=== PATIENT | female | born 1935 | race Caucasian/White ===

== ENCOUNTER 2020-10-02 10:37 | Outpatient (CLI) | payer MEDICARE, SELFPAY ==
--- NOTE | ~2020-10-02 | US_ITS ---
EXAMINATION: US carotid duplex BI DATE: 10/02/2020 11:18 INDICATION: Vertigo TECHNIQUE: Grayscale, color Doppler, and pulsed Doppler images of the cervical carotid arteries were obtained. The degree of vessel stenosis is placed in one of the following categories: normal, <50%, 5 0-69%, >=70% but less than near-occlusion, near-occlusion, or total occlusion. Note that percent sten osis relative to normal distal artery lumen diameter is indirectly measured from velocity measurement s as described by Bret, et al. Radiology 2003; 229:340-346. COMPARISON: None. FINDINGS: RIGHT: The right common carotid artery (CCA) peak systolic velocity (PSV) is 81 cm/s. The right internal car otid artery (ICA) PSV is 75 cm/s. The right ICA end-diastolic velocity (EDV) is 14 cm/s. The right IC A/CCA PSV ratio is 0.9. Grayscale and color Doppler images yield an estimate of <50% diameter reducti on from plaque in the ICA. The external carotid artery (ECA) PSV is 75 cm/s. There is antegrade flow in the right vertebral artery. LEFT: The left CCA PSV is 91 cm/s. The left ICA PSV is 78 cm/s. The left ICA EDV is 14 cm/s. The left ICA/C CA PSV ratio is 0.9. Grayscale and color Doppler images yield an estimate of <50% diameter reduction from plaque in the ICA. The ECA PSV is 68 cm/s. There is antegrade flow in the left vertebral artery. IMPRESSION: 1. <50% stenosis in the right internal carotid artery. 2. <50% stenosis in the left internal carotid artery. Reviewed, dictated and finalized at location B. OSIVES TRUCK DRIVER
== END 2020-10-02 10:38 | disposition home or self-care (01) ==
PROVIDERS: PCP Family Medicine Adolescent Medicine; Visit Provider Nurse Practitioner Adult Health
DX: R42 Dizziness and giddiness (principal); I65.23 Occlusion and stenosis of bilateral carotid arteries
CPT/HCPCS: 93880

== ENCOUNTER 2020-12-18 16:57 | Outpatient (CLI) | payer MEDICARE, SELFPAY | END 2020-12-18 16:58 | disposition home or self-care (01) | LOC: ANHCOVIDVC 16:57 | PROVIDERS: PCP Family Medicine Adolescent Medicine; Visit Provider Family Medicine Adolescent Medicine | DX: Z23 Encounter for immunization (principal) | CPT/HCPCS: 0001A; 91300 ==

== ENCOUNTER 2021-01-08 16:45 | Outpatient (CLI) | payer MEDICARE, SELFPAY | END 2021-01-08 16:46 | disposition home or self-care (01) | LOC: ANHCOVIDVC 16:45 | PROVIDERS: PCP Family Medicine Adolescent Medicine | DX: Z23 Encounter for immunization (principal) | CPT/HCPCS: 0002A; 91300 ==

== ENCOUNTER → 2021-03-22 06:37 | Outpatient (CLI) | payer MEDICARE, SELFPAY ==
[2021-03-22 18:15] LABS: SARS-CoV-2 RNA PCR Negative
== END ==
PROVIDERS: PCP Family Medicine Adolescent Medicine; Visit Provider Family Medicine Adolescent Medicine
DX: R05 Cough (principal); M79.10 Myalgia, unspecified site; Z20.822 Contact with and (suspected) exposure to COVID-19
CPT/HCPCS: C9803; U0003; U0005

== ENCOUNTER 2021-09-12 11:18 | Emergency (ER) | payer MEDICARE, SELFPAY ==
--- NOTE | ~2021-09-12 | XR_ITS ---
EXAMINATION: XR chest 2V DATE: 09/12/2021 12:14 INDICATION: Shortness of breath, history of cardiac arrest TECHNIQUE: AP and lateral views of the chest are obtained. COMPARISON: 06/01/2008 FINDINGS: The lungs are free of acute opacities. There is no pleural effusion or pneumothorax. The ca rdiomediastinal silhouette is normal. There is moderate thoracic spondylosis. IMPRESSION: 1. No acute cardiopulmonary abnormality. Reviewed, dictated and finalized at location A. ICAL ASSOC
--- NOTE | ~2021-09-12 | CT_ITS ---
EXAMINATION: CT cervical spine wo con DATE: 09/12/2021 12:23 INDICATION: Head injury TECHNIQUE: Computed tomography (CT) of the cervical spine was performed without intravenous contrast. The dose-length product (DLP) was 298.15 mGy-cm. Automated exposure control and iterative reconstruc tion technique were employed. COMPARISON: None FINDINGS: There is no fracture, dislocation, or subluxation. The vertebral body heights are maintaine d. There is severe loss of intervertebral disc space height from C3-4 through C6-7. Small degenerativ e osteophytes project from the anterior endplates of multiple vertebral bodies. There is moderate mul tilevel facet osteoarthritis and severe multilevel uncovertebral joint osteoarthritis. The odontoid i s intact. The prevertebral soft tissues are normal. IMPRESSION: 1. Severe cervical spondylosis without acute findings. Reviewed, dictated and finalized at location A. ER CRAB
--- NOTE | ~2021-09-12 | CT_ITS ---
EXAMINATION: CT brain wo con INDICATION: Head injury COMPARISON: None TECHNIQUE: Standard unenhanced head CT. The dose-length product (DLP) was 605.33 mGy-cm. The mA was a djusted according to patient size. Iterative reconstruction technique was employed. FINDINGS: There is no acute intraparenchymal hemorrhage. No evidence of mass lesion. No evidence of a cute infarction. There is mild periventricular and subcortical hypodensity probably related to small vessel ischemic disease. There is mild prominence of the sulci and ventricles related to cerebral atr ophy. Intracranial calcified cerebral atherosclerosis is noted. There are no extra-axial collections. There is no mass effect or midline shift. Changes in the globes are likely from ocular lens surgery. There is mild mucosal thickening of the paranasal sinuses. IMPRESSION: 1. No acute intracranial abnormality. 2. Age related findings. Reviewed, dictated and finalized at location A. FYING SPECIALIST
[2021-09-12 11:22] VITALS: BP 169/99; PULSE 85; RESP 18; TEMP 36.6; O2SAT 99
[2021-09-12 12:54] VITALS: BP 144/70; PULSE 79; RESP 17; O2SAT 96
--- NOTE | 2021-09-12 13:07 | ED.FALL ---
HPI - Fall General Chief Complaint: Fall Stated Complaint: fall Time Seen by Provider: 09/12/21 11:44 History of Present Illness HPI Narrative: Patient presents after a fall. Reports she was walking at home stepped on a trip on a cat and fell striking her back on a recliner and guiding herself to the ground. Reports initially she was having some back pain and felt unwell however on arrival to the ER she reports feeling much improved. She denies hitting her head she denies any loss of conscious denies any focal numbness or weakness. Reports chronic dizziness but denies any acute change prior to her event. She denies chest pain or shortness of breath prior to event denies any recent fevers chills cough or congestion. Related Data Allergies Allergy/AdvReac Type Severity Reaction Status Date / Time No Known Allergies Allergy Unknown Verified 09/12/21 11:27 Review of Systems Review of Systems: CONSTITUTIONAL: Denies fever, chills, or sweats. EYES: Denies visual changes, redness, or discharge. ENT: Denies rhinorrhea, congestion, sore throat, or otalgia. CARDIOVASCULAR: Denies chest pain, palpitations, or edema. RESPIRATORY: Denies cough or dyspnea. GASTROINTESTINAL: Denies abdominal pain, nausea, vomiting, or diarrhea. GENITOURINARY: Denies dysuria or hematuria. SKIN: Denies rash or itching. MUSCULOSKELETAL: Denies back pain, joint pain, or myalgia. NEUROLOGIC: Denies headache, numbness, dizziness, or weakness. PSYCHIATRIC: Denies anxiety or depression. All systems reviewed & are unremarkable except as noted in HPI and below PMFSH Past Medical History Medical History (Updated 09/12/21 @ 13:12 by Ernesto Joshi MD) Dizziness Social History Social History (Updated 09/12/21 @ 13:12 by Ernesto Joshi MD) Substance use: never Course Vital Signs Vital signs: Vital Signs Temperature 36.6 C 09/12/21 11:22 Pulse Rate 85 09/12/21 11:22 Respiratory Rate 18 09/12/21 11:22 Blood Pressure 169/99 H 09/12/21 11:22 Pulse Oximetry 99 09/12/21 11:22 Temperature 36.6 C 09/12/21 11:22 Pulse Rate 79 09/12/21 12:54 Respiratory Rate 17 09/12/21 12:54 Blood Pressure 144/70 H 09/12/21 12:54 Pulse Oximetry 96 09/12/21 12:54
--- NOTE | 2021-09-12 13:13 | ED.FALL ---
HPI - Fall General Chief Complaint: Fall Stated Complaint: fall Time Seen by Provider: 09/12/21 11:44 History of Present Illness HPI Narrative: Prior note was signed prematurely in error. Please reference earlier note for details of HPI and review of systems as well as past medical history. Related Data Allergies Allergy/AdvReac Type Severity Reaction Status Date / Time No Known Allergies Allergy Unknown Verified 09/12/21 11:27 [facility] Past Medical History Medical History (Updated 09/12/21 @ 13:15 by Ernesto Joshi MD) Dizziness Social History Social History (Updated 09/12/21 @ 13:12 by Enresto Joshi MD) Substance use: never Exam Narrative: GENERAL: Well-appearing, well-nourished, and in no acute distress. HEAD: Normocephalic, atraumatic. EYES: PERRLA and EOMI. ENT: Nares clear, no rhinorrhea or epistaxis. Mucous membranes moist. NECK: Supple. No masses. No JVD CHEST: Clear to auscultation. No respiratory distress. No wheezes rales or rhonchi HEART: Regular rate and rhythm. No murmur heard. Normal peripheral pulses. ABDOMEN: Soft, nontender, nondistended, normal active bowel sounds. EXTREMITIES: Normal range of motion. No edema. SKIN: Warm, dry, no rash. NEURO: No focal deficits. Alert and oriented x3. PSYCH: Normal mood and affect. Course Reevaluation(s) Reevaluation #1: Patient continues to feel much improved results and plan reviewed with patient. Patient comfortable with outpatient plan. Date: 09/12/21 Time: 13:14 Vital Signs Vital signs: Vital Signs Temperature 36.6 C 09/12/21 11:22 Pulse Rate 85 09/12/21 11:22 Respiratory Rate 18 09/12/21 11:22 Blood Pressure 169/99 H 09/12/21 11:22 Pulse Oximetry 99 09/12/21 11:22 Temperature 36.6 C 09/12/21 11:22 Pulse Rate 79 09/12/21 12:54 Respiratory Rate 17 09/12/21 12:54 Blood Pressure 144/70 H 09/12/21 12:54 Pulse Oximetry 96 09/12/21 12:54 MDM - Fall MDM Narrative Medical decision making narrative: vss, pt looks clinically well, exam without focal neurological deficits or lacerations, imaging clinically unremarkable, additional labs/img considered, symptomatic relief available as needed, on reevaluation pt continues to looks clinically well. Suspect mechanical fall with isolated soft tissue injuries, dns intracranial hemorrhage, fracture, cord compromise, syncopal event. plan to tx/monitor as op w/ pcm f/u findings/plan discussed with pt, pt agree/comfortable with plan, return precautions given Imaging Data Radiologist's impression: Impressions Chest X-Ray 09/12/21 12:16 IMPRESSION: 1. No acute cardiopulmonary abnormality. Head CT 09/12/21 12:39 IMPRESSION: 1. No acute intracranial abnormality. 2. Age related findings. Cervical Spine CT 09/12/21 12:42 IMPRESSION: 1. Severe cervical spondylosis without acute findings. Discharge Plan Discharge Clinical Impression: Fall Qualifiers: Encounter type: initial encounter Qualified Code(s): W19.XXXA - Unspecified fall, initial encounter Patient Disposition: Home, Self-Care Condition: Improved Instructions: Antibiotic Form Additional Instructions: Please return if your symptoms worsen or fail to improve. If you develop a fever, can not eat/drink anything or if you have any other concerns. Follow-up/Referrals: Luis Edgar MD [Primary Care Provider] - Time of Disposition: 13:15
== END 2021-09-12 13:22 | disposition home or self-care (01) ==
PROVIDERS: Emergency Provider Emergency Medicine; PCP Family Medicine Adolescent Medicine
DX: T14.90XA Injury, unspecified, initial encounter (principal); M47.812 Spondylosis without myelopathy or radiculopathy, cervical region; W01.0XXA Fall on same level from slipping, tripping and stumbling without subsequent striking against object, initial encounter
CPT/HCPCS: 70450; 71046; 72125; 99284

== ENCOUNTER 2021-12-31 12:37 | Outpatient (CLI) | payer MEDICARE, SELFPAY | END 2021-12-31 12:38 | disposition home or self-care (01) | LOC: ANHBWCAUD 12:37 | PROVIDERS: PCP Family Medicine Adolescent Medicine; Visit Provider Otolaryngology | DX: H90.3 Sensorineural hearing loss, bilateral (principal) | CPT/HCPCS: 92557; 92567 ==

== ENCOUNTER 2022-05-09 10:00 | Outpatient (RCR) | payer MEDICARE, SELFPAY | END 2022-05-26 23:59 | disposition home or self-care (01) | LOC: ANHBWCAUD 10:00 | PROVIDERS: PCP Family Medicine Adolescent Medicine; Visit Provider Family Medicine Adolescent Medicine | DX: Z46.1 Encounter for fitting and adjustment of hearing aid (principal) | CPT/HCPCS: 99199; V5261 ==

== ENCOUNTER → 2022-11-10 08:40 | Outpatient (CLI) | payer MEDICARE, SELFPAY ==
--- NOTE | ~2022-11-10 | MMUS_ITS ---
EXAMINATION: MM diagnostic fercho BI w ni, US breast LT limited HISTORY: Left breast lump TECHNIQUE: Bilateral full field and left spot 3-D tomosynthesis images were performed and synthetic 2 -D images were generated. CAD analysis was submitted and interpreted. High resolution left upper oute r quadrant and left subareolar breast ultrasound was performed. COMPARISON: None BREAST PARENCHYMAL COMPOSITION: There are scattered areas of fibroglandular density. FINDINGS: MAMMOGRAPHIC FINDINGS: There is asymmetric mammographic density in the upper outer quadrant and subareolar area of the left breast. Targeted ultrasound of these areas was performed. Otherwise no suspicious mass, architectural distortion, malignant calcification, skin thickening or r etraction of either breast is evident. Occasional benign calcifications. ULTRASOUND: Anterior clinical complaint of left breast lump at 11:00 3 cm multiple there is an irregular hypoecho ic superficial solid lesion measuring 4 x 3.6 x 6 mm, with posterior shadowing, some internal vascula rity. This lesion is suspicious for breast malignancy. Ultrasound-guided biopsy is recommended. No other suspicious mass or shadowing is noted. IMPRESSION: 1. Suspicious up to 6 mm irregular solid superficial mass of left breast at 11:00 3 cm from nipple an d with posterior shadowing 2. Ultrasound-guided biopsy of left breast 11:00 lesion is recommended BI-RADS category 4, suspicious findings. Dr. Barajas telephoned the report and ultrasound-guided biopsy recommendation of the left breast 11:00 p osition on 11/10/[address] Cuevas. Reviewed, dictated and finalized at location A. BUILDER IMPRESSION: 1. Suspicious up to 6 mm irregular solid superficial mass of left breast at 11: 00 3 cm from nipple and with posterior shadowing 2. Ultrasound-guided biopsy of left breast 11:00 lesion is recommended BI-RADS category 4, suspicious findings. Dr. Barajas telephoned the report and ultrasound-guided biopsy recommendation of t he left breast 11:00 position on 11/10/[address] Cuevas.
== END ==
PROVIDERS: PCP Family Medicine Adolescent Medicine; Visit Provider Physician Assistant
DX: N63.20 Unspecified lump in the left breast, unspecified quadrant (principal); R92.8 Other abnormal and inconclusive findings on diagnostic imaging of breast
CPT/HCPCS: 76642; 77062; 77066; G0279

== ENCOUNTER 2022-11-19 10:44 | Outpatient (CLI) | payer MEDICARE, SELFPAY ==
--- NOTE | ~2022-11-19 | MMUS_ITS ---
US breast biopsy LT w image, MM post biopsy invasive LT EXAMINATION: US GUIDED NEEDLE BIOPSY WITH VACUUM ASSISTANCE DATE: 11/19/2022 12:12 LIFE EDUCATOR INDICATION: Left breast mass seen on recent examination. Ultrasound-guided core biopsy is requested to evaluate for malignancy. TECHNIQUE AND FINDINGS: The risks and potential benefits of the procedure were discussed with the patient, and written inform ed consent was obtained. After sterile preparation of the left breast, 1% lidocaine was utilized for local anesthesia. 1% lidocaine with epinephrine was used for deep anesthesia. A 10G vacuum-assisted biopsy gun needle was advanced through to the outer edge of the region of inter est from a superior approach utilizing sonographic guidance. A total of three tissue core samples we re obtained through the lesion. An Inrad tissue marker clip was then placed at the biopsy site. Hemo stasis was achieved. The patient tolerated procedure well and there was no evidence of immediate complication. The patien t was given verbal instructions partly is from the department. Left breast mammograms to document ti ssue marker clip placement. The tissue samples were submitted to surgical pathology for histologic an alysis. IMPRESSION: 1. Successful ultrasound-guided vacuum-assisted biopsy of left breast mass with tissue marker placem ent. Please refer to pathology report for histologic analysis. Reviewed, dictated and finalized at location A. EDUCATOR IMPRESSION: 1. Successful ultrasound-guided vacuum-assisted biopsy of left breast mass wit h tissue marker placement. Please refer to pathology report for histologic anal ysis.
== END 2022-11-19 10:45 | disposition home or self-care (01) ==
LOC: ANHIMG 10:50
PROVIDERS: PCP Family Medicine Adolescent Medicine; Visit Provider Physician Assistant
DX: N63.20 Unspecified lump in the left breast, unspecified quadrant (principal); R92.8 Other abnormal and inconclusive findings on diagnostic imaging of breast
CPT/HCPCS: 19083; 88305; 88360; A4648

== ENCOUNTER 2022-12-05 00:57 | Day surgery (SDC) | payer MEDICARE, SELFPAY ==
[2022-12-03 13:07] VITALS: BMI 27.1
--- NOTE | 2022-12-03 13:30 | PC.NURSE ---
Addendum entered by Wilda Godfrey RN 12/03/22 13:33: PT AWARE OF HIBICLENS SHOWER AM OF SURGERY Original Note: Report to the Outpatient Waiting Room, entrance under the green pavilion located off [facility], at time ___0700____ on date _12/05/22 . Planned Procedure Time: _NEEDLE LOC @ 0730, SURGERY @ 1000 . Time changes happen often and if your time is changed the preop area will call you the afternoon before. - You and your visitor will be asked to self-screen and do not enter if you have any COVID symptoms. - Only one visitor is requested with a max of two and NO children visitors are allowed at this time. - The patient visitor may be requested to leave or wait in car when not with patient due to distancing restrictions. - A mask is optional within the hospital at this time. Patients may have clear liquids (water, carbonated beverages, clear teas, apple juice) until 3 hours prior to surgery (0700 AM) with a maximum of 20 ounces. - No food from midnight until time of surgery - Infants may have breast milk until 4 hours before surgery, formula 6 hours prior to surgery. - Children will be allowed to drink immediately following surgery. If applicable, please bring a bottle or sippy cup to assist with drinking. Juice, water, soda, and popsicles are readily available. For infants on formula, please bring formula the day of surgery. Pacifiers are allowed. Take the following medications with a SIP of water the morning of surgery: _AMLODIPINE, METOPROLOL_ DO NOT STOP ANY OF YOUR OTHER PRESCRIPTION MEDICATIONS PRIOR TO SURGERY ?EXCEPT THE FOLLOWING Medications to discontinue per ANESTHESIA -_VITAMINS OF TODAY___ Date to take last dose___12/03/22 Please no make-up, nail spanish, hairspray, perfume, deodorant, or body powder the day of surgery. No jewelry (including any body piercings) or valuables the day of surgery, leave them at home. Please take a shower or bath the night before, or the morning of, surgery with an antibacterial soap. Wear comfortable, loose fitting clothing. Children are encouraged to wear pajamas. - Jewelry must be removed prior to entering the operating room. Rings and piercings that are not removed may be cut off. - The hospital will not accept responsibility for valuables. - Please leave all valuables, including medications, at home the day of surgery. If you are going home after surgery, a licensed tow truck driver must drive you home. - NO public transportation without another adult if you receive anesthesia. - We recommend that an adult stay with you for 24 hours following discharge. - We also recommend that you do not drive, make important decision, drink alcoholic beverages, or take any drugs that were not prescribed by your health care provider for at least 24 hours after your discharge time. For Pediatric surgeries, we recommend two adults accompany the child home. Follow any additional instructions given to you from your surgeon. If you or anyone in your household have experienced Covid symptoms in the past week, please notify your surgeon or the nurse liaison at the phone number below for possible testing. Telephone instructions given to ____PT and asked if any additional questions and then verbalized understanding. Patient advised to call surgeon office or pre surgery nurse liaison [phone] if any additional questions.
[2022-12-05] VITALS (10 sets, daily range): BP systolic 141–158; BP diastolic 53–76; PULSE 70–83; RESP 12–16; TEMP 36.1–36.5; O2SAT 93–100
--- NOTE | ~2022-12-05 | MM_ITS ---
MM needle loc DATE: 12/05/2022 08:52 INDICATION: Preoperative mammographically guided wire localization of radiopaque biopsy marker TECHNIQUE: The purpose of procedure, technique and potential competitions were discussed with the pat ient. The patient indicated understanding and gave consent. Timeout procedure was performed. The breast was placed in compression in mediolateral position with biopsy grid aperture over the area of interest in the anterior mid to upper right breast near midline. The skin was prepared with sterile Betadine solution. 1% lidocaine local anesthetic was was administe red to the skin. [place] [facility] needle was introduced from a medial approach into the breast directed toward the biops y marker. Needle direction was adjusted based upon ML mammographic exposures for assessment and needl e position. Subsequently a craniocaudal exposure was made, confirming the needle at appropriate depth . The wire was engaged through the tip of the needle and the needle withdrawn. Final mediolateral and craniocaudal exposures reveal the wire intermittently positioned with respect to the biopsy marker. The patient was very cooperative and tolerated the procedure very well, without complaint or apparent complication. IMPRESSION: Successful preoperative mammographically guided wire localization of breast biopsy marker Reviewed, dictated and finalized at [facility]. Reviewed, dictated and finalized at location A. ORATE GIVING MANAGER IMPRESSION: Successful preoperative mammographically guided wire localization o f breast biopsy marker
--- NOTE | ~2022-12-05 | NM_ITS ---
NM sentinel node inject only DATE: 12/05/2022 09:37 INDICATION: Breast cancer; sentinel node localization TECHNIQUE: The purpose of the procedure, technique and potential complications were discussed with shwetha e patient. The patient verbalized understanding and gave consent. Four equally divided doses totaling cumulative 1.046 mCi 99m technetium Lymphoseek were injected sub dermally in the subareolar area at 12:00, 3:00, 6:00 and 9:00 positions. The patient was very cooperative and tolerated the procedure without complaint. IMPRESSION: Preoperative 1.046 mCi 99m technetium Lymphoseek periareolar subdermal injections for in traoperative sentinel node localization Reviewed, dictated and finalized at [facility]. Reviewed, dictated and finalized at location [facility]. E BOARDER IMPRESSION: Preoperative 1.046 mCi 99m technetium Lymphoseek periareolar subde rmal injections for intraoperative sentinel node localization
--- NOTE | ~2022-12-05 | MM_ITS ---
MM surgical specimen LT DATE: 12/05/2022 10:15 INDICATION: Surgical excision of preoperatively mammographically guided wire localized breast biopsy marker TECHNIQUE: Single noncontrast surgical specimen mammogram COMPARISON: None FINDINGS: The biopsy marker and wire are present within the surgical soft tissue specimen. IMPRESSION: Successful surgical excision of breast biopsy marker Reviewed, dictated and finalized at [facility]. Reviewed, dictated and finalized at location A. EAU ADMINISTRATOR
[2022-12-05] MEDS: KETOROLAC 15 MG/ML VIAL (*BKC) IV PUSH (09:15)
[2022-12-05] MEDS: LACTATED RINGERS 1,000 ML 30 ML IV CONT (09:15)
[2022-12-05] MEDS: ACETAMINOPHEN 500 MG TABLET 1000 MG PO (09:15)
--- NOTE | 2022-12-05 09:20 | WPDHPUPDATE1 ---
History and Physical Update Update Date/Time: 12/05/22 09:20 History and Physical has been reviewed, including an updated exam of the patient. There are NO changes in the patient's condition. Risks, benefits, and alternatives have been discussed and questions answered. Patient agrees to proceed with procedure.
--- NOTE | 2022-12-05 09:33 | WPDANESEPPF ---
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 Patient Data Age: 87 Gender: F Height: 1.64 m Weight: 78.7 kg Last Vital Signs Temp 36.1 C L 12/05/22 08:09 Pulse 72 12/05/22 08:09 Resp 14 12/05/22 08:09 BP 158/76 H 12/05/22 08:09 Pulse Ox 97 12/05/22 08:09 O2 Del Method Room Air 12/05/22 08:09 Allergies Allergy/AdvReac Type Severity Reaction Status Date / Time No Known Allergies Allergy Unknown Verified 12/03/22 13:04 Home Medications Medication Instructions Recorded Confirmed Type amlodipine 5 mg tablet 5 mg PO DAILY 12/05/21 12/03/22 History metoprolol succinate 50 mg 50 mg PO BID 12/05/21 12/03/22 History tablet,extended release 24 hr olmesartan 40 mg tablet 40 mg PO DAILY 12/05/21 12/03/22 History simvastatin 20 mg tablet 20 mg PO DAILY 12/05/21 12/03/22 History cholecalciferol (vitamin D3) 10 10 mcg PO DAILY 01/02/22 12/03/22 History mcg (400 unit) tablet vitamin B complex (B 1 tablet PO DAILY 01/02/22 12/03/22 History Complex-Vitamin B12 tablet) omeprazole 20 mg capsule,delayed 20 mg PO DAILY 10/22/22 12/03/22 History release potassium chloride 20 mEq 20 meq PO DAILY 12/03/22 12/03/22 History tablet,extended release(part/cryst) Patient hx anesthesia problems: none Family hx anesthesia problems: none Results Review: All pre-operative results and documents have been reviewed as part of the pre-operative evaluation. [facility] Past Medical History Medical History Dizziness Essential (primary) hypertension Gastro-esophageal reflux disease without esophagitis History of ventricular tachycardia 2000 Pure hypercholesterolemia, unspecified Family History Family History Father Acute myocardial infarction Cerebrovascular accident Heart disease Hypertension Sibling Diabetes mellitus Heart disease Hypertension Sibling Heart disease Hypertension Social History Social History Smoking status: Never smoker Second hand tobacco smoke exposure: No Alcohol intake: never Substance use: never Substance use type: does not use Living arrangements: with family Additional living arrangements comments: LIVES WITH ANTELMO PENNY Occupation/Education: retired Gender identity (if verbalized by the patient): Female Sexual Orientation (if Verbalized by the Patient): Straight or Heterosexual Spiritual care concerns: No Agree to blood products: Yes Anes - Eval Final PreProcedure Day of Procedure 12/05/22 09:33 Patient weight: overweight Heart: regular rate and rhythm Lungs: clear to auscultation Airway: Mallampati scale class II Neurological: alert and oriented Last oral intake: >/= 8 hours ASA classification: III Emergent: no Anesthetic plan: proceed Anesthesia type and monitoring: general LMA and standard monitoring Results Review: All pre-operative results and documents have been reviewed as part of the pre-operative evaluation. Informed Consent: The patient's anesthetic plan and its attendant risks and benefits were discussed with the patient/family/POA. Questions were solicited and answers provided to the satisfaction of the patient/family/POA.
[2022-12-05] MEDS: ceFAZolin 2 GM/D5W 50 ML 2 GM/50 ML BAG IVPB (09:37)
[2022-12-05] MEDS: ISOSULFAN BLUE 1% INJ 5 ML VIAL SUB-Q (09:45)
--- NOTE | 2022-12-05 09:54 | SUR.OPER ---
MAMMS notified of incision at 0954.
--- NOTE | 2022-12-05 10:13 | SUR.OPER ---
1013: Left Breast Lumpectomy (Short Suture Superior, Long Suture Lateral) sent with [facility] [place]. 1018: Spoke with Shereen MAMMS Tech. Radiologist said specimen was all clear. Dr. Marie informed.
[2022-12-05] MEDS: BUPIVACAINE/EPINEPHRINE 0.5% 10 ML VIAL 30 ML INFILTRATE (10:39)
--- NOTE | 2022-12-05 10:52 | W.PM.PROC2 ---
Procedure Note - Detailed Date of Procedure 12/05/22 Pre-op Diagnosis left breast lobular carcinoma Post-op Diagnosis Same Procedure Performed Left breast wire localized lumpectomy with left axillary sentinel lymph node biopsy Surgeon Franklin Marie, DO Anesthesia General and Local ( 0.5% bupivacaine with epinephrine) Indications this is an 87-year-old woman who presented with a recent palpable abnormality in the left breast. Imaging showed a BI-RADS category 4 abnormality which was subsequently biopsied by Radiology. Needle biopsy showed evidence of lobular carcinoma. Discussions were made with the patient about treatment options and decision was made to proceed with wire localized left breast lumpectomy with sentinel lymph node biopsy. Findings Wire localized left breast lumpectomy with left axillary sentinel lymph node biopsy was performed. The patient underwent wire localization by the radiologist preoperatively and nuclear isotope was also infiltrated in the periareolar region preoperatively. I then also infiltrated isosulfan blue in the periareolar region at the beginning of the procedure. A lumpectomy was performed location of the wire in the superior breast tissue just above the nipple areola complex. There did appear to be a hematoma just underneath the skin from the recent biopsy. A careful lumpectomy was performed around the wire. The specimen was marked with a short suture superior and long suture lateral. I then performed the left axillary sentinel lymph node biopsy. There was not a large amount of uptake noted in the axilla from the navigator, but I did identify 1 area of increased uptake and was able to identify a lymphatic channel and blue lymph node in this region. The lymph node was removed and this was showing an uptake of 105 with the navigator. The remaining baseline uptake in the axilla was only about 5-10 with the navigator and no other blue lymph nodes were identified. The sentinel lymph node was sent to the lab for pathology. Description of Procedure Procedure as well as risks, benefits, and alternatives were discussed with the patient. Written consent was obtained and placed in chart prior to procedure. Patient was brought back to surgical suite. She was placed supine on operating table. Time-out was done to confirm patient and procedure. She was then intubated by the anesthesia department. Her left breast and axillary region was prepped and draped in sterile fashion using chlorhexidine prep. The images from the wire localization carefully reviewed. Have% bupivacaine with epinephrine was infiltrated locally just superior to the nipple-areolar complex. A 4 cm curvilinear incision was made just superior to the nipple areola complex using 15 blade scalpel. Electrocautery was used for hemostasis and dissection around the wire in this location. A careful wide dissection was performed around the wire using electrocautery. The specimen was carefully freed up completely and the lumpectomy was performed and with adequate margins around the entire distal part of the wire. The specimen was then marked with a short suture superior and long suture lateral and then this was sent to Radiology to confirm that the tissue marker was within the specimen. The wound bed was then inspected and hemostasis appeared adequate. The deep dermis was reapproximated using 3-0 Vicryl simple interrupted sutures. The skin was then approximated using 4 Monocryl running subcuticular suture. Exofin was then applied on top. I then moved my attention to the left axilla. The navigator was used to identify increased nuclear uptake within the left axilla. A% bupivacaine with epinephrine was infiltrated locally around this region and then a 3 cm transverse incision was made using a 15 blade scalpel. Electrocautery was used for hemostasis and for dissection through subcutaneous tissue and then through the clavipectoral fascia. A blue channel was iden
== END 2022-12-05 12:57 | disposition home or self-care (01) ==
PROVIDERS: PCP Family Medicine Adolescent Medicine; Visit Provider Surgery
PROC: (CPT 19301; principal; 2022-12-05 10:00)
PROC: (CPT 19301; 2022-12-05 10:00)
DX: C50.912 Malignant neoplasm of unspecified site of left female breast (principal); I10 Essential (primary) hypertension; E78.00 Pure hypercholesterolemia, unspecified; K21.9 Gastro-esophageal reflux disease without esophagitis; Z17.0 Estrogen receptor positive status [ER+]
CPT/HCPCS: 19301; 38525; 19281; 38792; 76098; 88307; 88342; A9270; A9520; C1769; J0690; J1100; J1885; J2405; J2704; J3010; J7120

== ENCOUNTER 2023-02-16 11:42 | Outpatient (CLI) | payer MEDICARE, SELFPAY ==
[2023-02-16 11:54] LABS: Basophils Absolute Auto 0.1 K/mm3 (0.0-0.1); Basophils Percent Auto 0.8 % (0.2-1.2); Eosinophils Absolute Auto 0.1 K/mm3 (0-0.3); Hematocrit 43.5 % (37.0-47.0); Hemoglobin 14.5 g/dL (12.0-15.0); Immature Granulocyte Absolute 0.01 K/mm3 (0.00-0.031); Immature Granulocyte Percent A 0.1 % (0-0.5); Lymphocytes Absolute Auto 1.88 K/mm3 (0.9-3.2); Lymphocytes Percent Auto 24.2 % (18.3-44.2); Mean Corpuscular HGB Conc 33.3 g/dl (32-36); Mean Corpuscular Hemoglobin 29.1 pg (26-34); Mean Corpuscular Volume 87.2 fl (80-100); Mean Platelet Volume 9.9 fl (7.4-10.4); Monocytes Absolute Auto 0.8 K/mm3 (0.1-0.6); Monocytes Percent Auto 9.9 % (2.6-8.5); Platelet Count Result 287 k/mm3 (150-375); Red Blood Count 4.99 M/mm3 (4.2-5.4); Red Cell Distribution Width 13.4 % (11.5-14.5); White Blood Count 7.8 K/mm3 (4.5-10.0)
[2023-02-16 16:42] LABS: Alanine Aminotransferase 39 U/L (6-35); Albumin Level 4.4 g/dL (3.5-5.1); Alkaline Phosphatase 84 U/L (38-126); Anion Gap 8 mmol/L (8-16); Aspartate Amino Transferase 29 U/L (14-36); Blood Urea Nitrogen 12 mg/dL (7-17); Calcium 9.3 mg/dL (8.4-10.2); Carbon Dioxide 29 mmol/L (22-30); Chloride 102 mmol/L (98-107); Estimated Glomerular Filt Rate > 60; Glucose 123 mg/dL (65-110); Potassium 4.5 mmol/L (3.4-5.0); Sodium 139 mmol/L (137-145)
[2023-02-20 05:20] LABS: CA 15-3 <5 U/mL (<32)
== END 2023-02-16 11:43 | disposition home or self-care (01) ==
LOC: ANHLAB 11:44
PROVIDERS: PCP Family Medicine Adolescent Medicine; Visit Provider Internal Medicine Hematology & Oncology
DX: C50.412 Malignant neoplasm of upper-outer quadrant of left female breast (principal); Z17.0 Estrogen receptor positive status [ER+]
CPT/HCPCS: 36415; 80053; 85025; 86300

== ENCOUNTER → 2023-06-10 16:32 | Outpatient (CLI) | payer MEDICARE, SELFPAY ==
--- NOTE | ~2023-06-10 | XR_ITS ---
XR chest 2V 06/10/2023 16:52 Indication: Chest pain Procedure: 2 view chest Comparison: Comparison to multiple prior studies sequentially, with oldest reviewed study dated 01/30. Findings: Heart size normal. There is evidence for chronic granulomatous disease. There is left basil ar atelectasis/scarring. No focal air space disease, pulmonary edema, pleural effusion or suspected p neumothorax. Impression: 1: No acute cardiopulmonary disease. Reviewed, dictated and finalized at location [facility]. Impression: 1: No acute cardiopulmonary disease.
== END ==
PROVIDERS: PCP Family Medicine Adolescent Medicine; Visit Provider Family Medicine Adolescent Medicine
DX: R07.9 Chest pain, unspecified (principal)
CPT/HCPCS: 71046

== ENCOUNTER 2023-10-06 13:30 | Outpatient (RCR) | payer MEDICARE, SELFPAY | END 2023-11-11 23:59 | disposition home or self-care (01) | LOC: ANHBWCAUD 13:30 | PROVIDERS: PCP Family Medicine Adolescent Medicine; Visit Provider Family Medicine Adolescent Medicine | DX: Z46.1 Encounter for fitting and adjustment of hearing aid (principal) | CPT/HCPCS: 99199 ==

== ENCOUNTER 2023-10-18 00:47 | Observation (INO) | payer MEDICARE, SELFPAY ==
--- NOTE | ~2023-10-18 | XR_ITS ---
EXAMINATION: XR chest 2V DATE: 10/18/2023 01:08 INDICATION: Chest pain. TECHNIQUE: Frontal and lateral views of the chest were obtained. COMPARISON: Chest 2 views 06/10/2023 FINDINGS: There is mild atelectasis in the lower lung zones. Calcified right lung nodules and calcifi ed right hilar lymph nodes are consistent with old granulomatous disease. No pleural effusion or pneu mothorax. The heart size is normal. IMPRESSION: 1. Mild atelectasis in the lower lung zones. Reviewed, dictated and finalized at location A. ASS TRIMMER
--- NOTE | 2023-10-18 00:48 | ECG_ITS ---
Measurements Intervals [place] Rate: 77 P: 77 CT: 176 QRS: -25 QRSD: 142 T: 107 QT: 413 QTc: 468 Interpretive Statements SINUS RHYTHM WITH OCCASIONAL SUPRAVENTRICULAR PREMATURE COMPLEXES LEFT BUNDLE BRANCH BLOCK [120+ ms QRS DURATION, 80+ ms Q/S IN V1/V2, 85+ ms R IN I/aVL/V5/V6] NO PREVIOUS ECG AVAILABLE FOR COMPARISON Electronically Signed On 10-18-2023 14:49:59 SURGICAL SALES REPRESENTATIVE by Don Walters M.D.
[2023-10-18 00:57] VITALS: BP 166/79; PULSE 93; RESP 20; TEMP 36.4; O2SAT 95
[2023-10-18 01:31] LABS: Basophils Percent Auto 0.6 % (0.2-1.2); Eosinophils Absolute Auto 0.2 K/mm3 (0-0.3); Eosinophils Percent Auto 2.9 % (0-4.4); Hematocrit 45.1 % (37.0-47.0); Hemoglobin 14.5 g/dL (12.0-15.0); Immature Granulocyte Absolute 0.01 K/mm3 (0.00-0.031); Immature Granulocyte Percent A 0.1 % (0-0.5); Lymphocytes Absolute Auto 1.61 K/mm3 (0.9-3.2); Lymphocytes Percent Auto 22.2 % (18.3-44.2); Mean Corpuscular HGB Conc 32.2 g/dl (32-36); Mean Corpuscular Hemoglobin 28.4 pg (26-34); Mean Corpuscular Volume 88.3 fl (80-100); Mean Platelet Volume 10.8 fl (7.4-10.4); Monocytes Absolute Auto 1.2 K/mm3 (0.1-0.6); Neutrophils Absolute Auto 4.2 K/mm3 (1.3-6.7); Neutrophils Percent Auto 58.2 % (45.5-73.1); Platelet Count Result 256 k/mm3 (150-375); Red Blood Count 5.11 M/mm3 (4.2-5.4); White Blood Count 7.3 K/mm3 (4.5-10.0)
[2023-10-18 01:40] LABS: INR 0.9
[2023-10-18 01:41] LABS: Alanine Aminotransferase 47 U/L (6-35); Albumin Level 4.2 g/dL (3.5-5.1); Alkaline Phosphatase 79 U/L (38-126); Anion Gap 10 mmol/L (8-16); Aspartate Amino Transferase 37 U/L (14-36); Bilirubin,Total 0.8 mg/dL (0.2-1.3); Blood Urea Nitrogen 14 mg/dL (7-17); Calcium 9.2 mg/dL (8.4-10.2); Carbon Dioxide 23 mmol/L (22-30); Chloride 105 mmol/L (98-107); Estimated CRCL calculation 48 ml/min; Estimated Glomerular Filt Rate > 60; Glucose 129 mg/dL (65-110); Lipase 197 U/L (23-300); Partial Thromboplastin Time 31.6 SECONDS (22.3-36.8); Potassium 3.9 mmol/L (3.4-5.0); Sodium 138 mmol/L (137-145)
[2023-10-18 01:53] LABS: Troponin I < 0.012 ng/mL (0.000-0.034)
[2023-10-18 03:19] VITALS: BP 160/105; PULSE 83; RESP 22; O2SAT 96
--- NOTE | 2023-10-18 03:19 | ED.GENADULT ---
HPI - General Adult General Chief complaint: Chest Pain Stated complaint: Chest pain Time Seen by Provider: 10/18/23 02:57 History of Present Illness HPI narrative: Patient is a 87-year-old female presents emergency room with chief complaint of chest pain. Patient reports this evening she started having some tightness in her chest patient reports that it radiates across the anterior portion of her chest and patient states that it lasted until she arrived in the lobby of the emergency department. The patient states currently she is pain free the patient does report that in the past she has had a cardiac catheterization and patient reports that she did have a prior cardiac arrest while on a cruise ship in [facility] Related Data Home Medications Medication Instructions Recorded Confirmed amlodipine 5 mg tablet 5 mg PO DAILY 12/05/21 10/18/23 simvastatin 20 mg tablet 20 mg PO HS 12/05/21 10/18/23 cholecalciferol (vitamin D3) 10 10 mcg PO DAILY 01/02/22 10/18/23 mcg (400 unit) tablet vitamin B complex (B 1 tablet PO DAILY 01/02/22 10/18/23 Complex-Vitamin B12 tablet) omeprazole 20 mg capsule,delayed 20 mg PO DAILY 10/22/22 10/18/23 release potassium chloride 20 mEq 20 meq PO DAILY 12/03/22 10/18/23 tablet,extended release(part/cryst) aspirin 81 mg capsule 81 mg PO DAILY 03/05/23 10/18/23 anastrozole 1 mg tablet 1 mg PO DAILY 10/18/23 10/18/23 metoprolol tartrate 50 mg tablet 50 mg PO BID 10/18/23 10/18/23 trazodone 50 mg tablet 50 mg PO QHS PRN Insomnia 10/18/23 10/18/23 Allergies Allergy/AdvReac Type Severity Reaction Status Date / Time No Known Allergies Allergy Unknown Verified 10/18/23 06:01 Review of Systems Review of Systems: A 10 system review of systems was completed on the patient and is negative except for what is stated in the HPI. Nursing and ancillary documentation was reviewed. [facility] Past Medical History Medical History Dizziness Essential (primary) hypertension Gastro-esophageal reflux disease without esophagitis History of ventricular tachycardia 2000 Pure hypercholesterolemia, unspecified Surgical History Surgical History History of lumpectomy left breast wire localized lumpectomy with left axillary sentinel lymph node biopsy 12/05/22 Family History Family History Father Acute myocardial infarction Heart disease Hypertension Cerebrovascular accident Sibling Diabetes mellitus Heart disease Hypertension Sibling Heart disease Hypertension Daughter Kidney disease Daughter at age 10 from kidney failure. Social History Social History Smoking status: Never smoker Second hand tobacco smoke exposure: No Alcohol intake: never Substance use: never Substance use type: does not use Do You Feel Safe in your Home?: Yes Lack of Transportation: No Lack of Food: Never True Current Housing: I Have Housing Concerned About Future Housing: No Difficulty Paying Gas/Electric Bills: No Difficulty Paying for Meds: No Currently Unemployed: No Education: High School Diploma/GED Difficulty w/ Childcare or Family Care: No Living arrangements: with family Additional living arrangements comments: LIVES WITH ANTELMO PENNY Occupation/Education: retired Gender identity (if verbalized by the patient): Female Sexual Orientation (if Verbalized by the Patient): Straight or Heterosexual Spiritual care concerns: No Agree to blood products: Yes Exam Narrative: GENERAL: Well-appearing, well-nourished, and in no acute distress. HEAD: Normocephalic, atraumatic. EYES: PERRLA and EOMI. ENT: Nares clear, no rhinorrhea or epistaxis. Mucous membranes moist. NECK: Supple. CHEST: Clear to auscultation.
--- NOTE | 2023-10-18 03:54 | PM.IMHP ---
H&P: HPI History of Present Illness Date/Time: 10/18/23 03:54 Chief Complaint: chest pain Narrative: 87F, mother of Dr. Weiner, accompanied by her daughter Vanna, w/ PMH HLD, HTN, GERD presents with complaint of chest pain. The patient was going about her usual, watching TV when she experienced significant heavy chest pain across the chest and radiating down the left axilla. Her pain subsided on its own while in the ER waiting room. There were no associated, aggravating, or relieving factors. The pt reports a distant history, in the 80's or 90's of cardiac arrest while on a cruise ship. She was shocked twice as a physician was standing behind her. She had a heart cath sometime after and apparently nothing was found, but she does mention report of LBBB. ED course was unrevealing, trop x 1 negative, EKG w/o acute ischemia, LBBB present. She is a non smoker but her daughter Vanna who lives with her smokes. Her and father had heart disease. Review of Systems Review of Systems: All systems reviewed & are unremarkable except as noted in HPI and below (HPI) PMFSH Past Medical History Medical History Dizziness Essential (primary) hypertension Gastro-esophageal reflux disease without esophagitis History of ventricular tachycardia 2000 Pure hypercholesterolemia, unspecified Surgical History Surgical History History of lumpectomy left breast wire localized lumpectomy with left axillary sentinel lymph node biopsy 12/05/22 Family History Family History Father Acute myocardial infarction Cerebrovascular accident Heart disease Hypertension Sibling Diabetes mellitus Heart disease Hypertension Sibling Heart disease Hypertension Social History Social History Smoking status: Never smoker Second hand tobacco smoke exposure: No Alcohol intake: never Substance use: never Substance use type: does not use Lack of Transportation: No Lack of Food: Never True Current Housing: I Have Housing Concerned About Future Housing: No Difficulty Paying Gas/Electric Bills: No Difficulty Paying for Meds: No Currently Unemployed: No Education: Don't Know Difficulty w/ Childcare or Family Care: No Living arrangements: with family Additional living arrangements comments: LIVES WITH ANTELMO PENNY Occupation/Education: retired Gender identity (if verbalized by the patient): Female Sexual Orientation (if Verbalized by the Patient): Straight or Heterosexual Spiritual care concerns: No Agree to blood products: Yes Meds Home Medications and Allergies Home Medications Medication Instructions Recorded Confirmed Type amlodipine 5 mg tablet 5 mg PO DAILY 12/05/21 06/09/23 History metoprolol succinate 50 mg 50 mg PO BID 12/05/21 06/09/23 History tablet,extended release 24 hr simvastatin 20 mg tablet 20 mg PO DAILY 12/05/21 06/09/23 History cholecalciferol (vitamin D3) 10 10 mcg PO DAILY 01/02/22 06/09/23 History mcg (400 unit) tablet vitamin B complex (B 1 tablet PO DAILY 01/02/22 06/09/23 History Complex-Vitamin B12 tablet) omeprazole 20 mg capsule,delayed 20 mg PO DAILY 10/22/22 06/09/23 History release potassium chloride 20 mEq 20 meq PO DAILY 12/03/22 06/09/23 History tablet,extended release(part/cryst) aspirin 81 mg capsule 81 mg PO DAILY 03/05/23 06/09/23 History anastrozole 1 mg tablet See Rx Instructions .Route 03/31/23 06/09/23 Rx .COMPLEX #30 tabs trazodone 50 mg tablet 50 mg PO QHS #30 tabs 07/06/23 Rx olmesartan 40 mg tablet 40 mg PO DAILY #90 tabs 08/26/23 Rx Allergies Allergy/AdvReac Type Severity Reaction Status Date / Time No Known Allergies Allergy Unknown Verified 06/09/23 13:45 Vital Signs Vital Signs -
--- NOTE | 2023-10-18 03:59 | ECG_ITS ---
Measurements Intervals [place] Rate: 87 P: 78 NC: 176 QRS: -27 QRSD: 141 T: 124 QT: 410 QTc: 495 Interpretive Statements SINUS RHYTHM WITH OCCASIONAL SUPRAVENTRICULAR PREMATURE COMPLEXES LEFT BUNDLE BRANCH BLOCK [120+ ms QRS DURATION, 80+ ms Q/S IN V1/V2, 85+ ms R IN I/aVL/V5/V6] COMPARED TO ECG 10/18/2023 01:03:25 NO SIGNIFICANT CHANGES Electronically Signed On 10-18-2023 14:50:59 PRIMARY CARE SALES REPRESENTATIVE by Don Walters M.D.
[2023-10-18 04:18] LABS: Cholesterol 181 mg/dL (0-200); HDL Direct 43 mg/dL; Triglycerides 135 mg/dL (<150)
[2023-10-18 04:26] LABS: Hemoglobin A1C 6.6 % (<5.7)
[2023-10-18 04:29] LABS: LDL Cholesterol Direct 106 mg/dL
[2023-10-18 04:31] LABS: Troponin I < 0.012 ng/mL (0.000-0.034)
[2023-10-18 05:37] VITALS: BP 119/105; PULSE 85; RESP 18; TEMP 36.6; O2SAT 94
[2023-10-18 05:39] VITALS: PULSE 88; BMI 29.3
--- NOTE | 2023-10-18 05:44 | ADMGEN ---
This patient, Maria Antonia Weiner, was admitted to IMU Room 232-01 on 10/18/23 at 0533. Patient/family oriented to hospital policies and general routines including ID bracelet, bed and alarms, visiting hours, pain management, procedures, bathroom and other care routines, personal items, smoking policy, room service/diet, and visiting hours. Information on how to activate the Rapid Response Team has been discussed. Patient/Family are encouraged to report perceived risks to care and to ask questions if they do not understand what they are told or what they should do.
[2023-10-18 08:00] VITALS: BP 173/80; PULSE 91; RESP 20; TEMP 36.3; O2SAT 92
[2023-10-18 08:15] LABS: Troponin I < 0.012 ng/mL (0.000-0.034)
[2023-10-18] MEDS: ASPIRIN 81 MG CHEWABLE TABLET PO (09:48)
--- NOTE | 2023-10-18 10:37 | PM.IMPN ---
Progress Note: A&P Assessment and Plan (1) Chest pain: Code(s): R07.9 - Chest pain, unspecified Status: Acute Assessment and Plan: trop neg x 2 tele stable cardio consult pending (2) Essential (primary) hypertension: Code(s): I10 - Essential (primary) hypertension Status: Acute Assessment and Plan: Blood pressure reviewed 10/18 (3) Left bundle branch block: Code(s): I44.7 - Left bundle-branch block, unspecified Status: Acute Assessment and Plan: Continue aspirin, statin, metoprolol Check lipid panel and A1c Plan DVT prophylaxis with SCDs GI prophylaxis not indicated Code status DNR Subjective Date/time seen: 10/18/23 10:37 Interval history: 87 year old female with h/o HTN, GERD, cardaic arrest in , p/w chest pain and currently being worked up for ACS. No overnight events noted. No chest pain or shortness of breath. No nausea, vomiting or diarrhea. No fevers or chills. Review of Systems Review of Systems: 12 point review of systems was assessed and was negative except as noted in the HPI Exam Narrative: General: No acute distress, alert and oriented per baseline HEENT: Atraumatic, normocephalic, mucous membranes moist CV: Regular rate and rhythm, S1, S2 Lungs: Clear to auscultation bilaterally, no rales or crackles noted, no wheezes, good air entry Abdomen: Soft, nontender, nondistended Extremities: Normal to inspection Skin: No rashes noted, no lesions or wounds seen Psych: Euthymic, normal affect Objective Data Vital Signs Vital Signs: Vital Signs - 24 hr 10/18/23 00:57 10/18/23 03:19 10/18/23 05:37 Temperature 97.6 F 97.8 F Pulse Rate 93 83 85 Respiratory Rate 20 22 H 18 Blood Pressure 166/79 H 160/105 H 119/105 H Pulse Oximetry 95 96 94 Oxygen Delivery 10/18/23 05:37 10/18/23 05:39 10/18/23 08:00 Temperature 97.4 F L Pulse Rate 85 88 91 Respiratory Rate 18 20 Blood Pressure 173/80 H Pulse Oximetry 94 92 Oxygen Delivery Room Air Intake/Output Intake/Output: Intake & Output 10/15/23 10/16/23 10/17/23 10/18/23 23:59 23:59 23:59 23:59 Intake Total 0 Output Total 0 Balance 0 Meds/Results Medications: Active Medications Generic Name Dose Route Start Last Admin Trade Name Sandrine PRN Reason Stop Dose Admin Aspirin 81 mg 10/18/23 08:00 10/18/23 09:48 Aspirin 81 Mg Chewable Tablet PO 81 mg DAILY@0800 [facility] Administration Radiology Results: ITS Impressions Chest X-Ray 10/18/23 06:16 IMPRESSION: 1. Mild atelectasis in the lower lung zones. Labs Labs: Laboratory Results - last 24 hr 10/18/23 10/18/23 10/18/23 01:15 04:01 04:01 WBC 7.3 RBC 5.11 Hgb 14.5 Hct 45.1 MCV 88.3 MCH 28.4 MCHC 32.2 RDW 14.0 Plt Count 256 MPV 10.8 H Immature Gran % (Auto) 0.1 Neut % (Auto) 58.2 Lymph % (Auto) 22.2 Robertson % (Auto) 16.0 H Eos % (Auto) 2.9 Baso % (Auto) 0.6 Lymph # (Auto) 1.61 Robertson # (Auto) 1.2 H Eos # (Auto) 0.2 Baso # (Auto) 0.0 Abs Immat Gran (auto) 0.01 Absolute Neuts (auto) 4.2 Absolute Nucleated RBC 0.0 Nucleated RBC % 0.0 PT 13.0 INR 0.9 APTT 31.6 Sodium 138 Potassium 3.9 Chloride 105 Carbon Dioxide 23 Anion Gap 10 BUN 14 Creatinine 0.70 Estim Creat Clear Calc 48 Estimated GFR > 60 Glucose 129 H Hemoglobin A1c 6.6 H Calcium 9.2 Total Bilirubin 0.8 AST 37 H ALT 47 H Alkaline Phosphatase 79 Troponin I < 0.012 < 0.012 Total Protein 8.0 Albumin 4.2 Triglycerides 135 Cancelled Cholesterol 181 LDL Cholesterol Direct HDL Direct Lipase 197 10/18/23 10/18/23 10/18/23 04:01 04:01 04:01 WBC RBC Hgb Hct MCV MCH MCHC RDW Plt Count MPV Immature Gran % (Auto) Neut % (Auto) Lymph % (Auto) Robertson % (Auto)
[2023-10-18] MEDS: guaiFENesin/DEXTROMETHORPHAN 10 ML UDC 5 ML PO (11:20)
--- NOTE | 2023-10-18 11:30 | PM.DS ---
DS: Admitting Diagnosis Discharge Date 10/18/23 Admitting Diagnosis chest pain DS: Discharge Diagnosis Discharge Diagnosis (1) Chest pain: Code(s): R07.9 - Chest pain, unspecified Status: Acute Assessment and Plan: trop neg x 2 tele stable cardio consult pending (2) Essential (primary) hypertension: Code(s): I10 - Essential (primary) hypertension Status: Acute Assessment and Plan: Blood pressure reviewed 10/18 (3) Left bundle branch block: Code(s): I44.7 - Left bundle-branch block, unspecified Status: Acute Assessment and Plan: Continue aspirin, statin, metoprolol Check lipid panel and A1c Plan DVT prophylaxis with SCDs GI prophylaxis not indicated Code status DNR DS: Summary Hospital Course Hospital Course: 87 year old female with h/o HTN, GERD, cardaic arrest in , p/w chest pain and currently being worked up for ACS. Troponin negative x2, EKG stable. Cardiology was consulted and recommended heart catheterization, patient refused workup. Therefore she was discharged in stable condition with close outpatient follow-up and nitroglycerin sublingually for any symptoms outpatient. Please see above, med rec and Cardiology consult for details. Time Spent with Patient Time attestation: Total time spent providing and/or coordinating discharge services: Exam Narrative: General: No acute distress, alert and oriented per baseline HEENT: Atraumatic, normocephalic, mucous membranes moist CV: Regular rate and rhythm, S1, S2 Lungs: Clear to auscultation bilaterally, no rales or crackles noted, no wheezes, good air entry Abdomen: Soft, nontender, nondistended Extremities: Normal to inspection Skin: No rashes noted, no lesions or wounds seen Psych: Euthymic, normal affect DS: Data Data Completed and Pending Labs on day of discharge: Labs from last 24 hours 10/18/23 10/18/23 10/18/23 07:36 04:01 04:01 WBC RBC Hgb Hct MCV MCH MCHC RDW Plt Count MPV Immature Gran % (Auto) Neut % (Auto) Lymph % (Auto) Bucks % (Auto) Eos % (Auto) Baso % (Auto) Lymph # (Auto) Bucks # (Auto) Eos # (Auto) Baso # (Auto) Abs Immat Gran (auto) Absolute Neuts (auto) Absolute Nucleated RBC Nucleated RBC % PT INR APTT Sodium Potassium Chloride Carbon Dioxide Anion Gap BUN Creatinine Estim Creat Clear Calc Estimated GFR Glucose Hemoglobin A1c Calcium Total Bilirubin AST ALT Alkaline Phosphatase Troponin I < 0.012 Total Protein Albumin Triglycerides Cholesterol LDL Cholesterol Direct Cancelled HDL Direct Cancelled 43 Lipase 10/18/23 10/18/23 10/18/23 04:01 04:01 04:01 WBC RBC Hgb Hct MCV MCH MCHC RDW Plt Count MPV Immature Gran % (Auto) Neut % (Auto) Lymph % (Auto) Bucks % (Auto) Eos % (Auto) Baso % (Auto) Lymph # (Auto) Bucks # (Auto) Eos # (Auto) Baso # (Auto) Abs Immat Gran (auto) Absolute Neuts (auto) Absolute Nucleated RBC Nucleated RBC % PT INR APTT Sodium Potassium Chloride Carbon Dioxide Anion Gap BUN Creatinine Estim Creat Clear Calc Estimated GFR Glucose Hemoglobin A1c 6.6 H Calcium Total Bilirubin AST ALT Alkaline Phosphatase Troponin I < 0.012 Total Protein Albumin Triglycerides Cancelled 135 Cholesterol Cancelled 181 LDL Cholesterol Direct 106 HDL Direct Lipase 10/18/23 01:15 WBC 7.3 RBC 5.11 Hgb 14.5 Hct 45.1 MCV 88.3 MCH 28.4 MCHC 32.2 RDW 14.0 Plt Count 256 MPV 10.8 H Immature Gran % (Auto) 0.1 Neut % (Auto) 58.2 Lymph % (Auto) 22.2 Bucks % (Auto) 16.0 H Eos % (Auto) 2.9 Baso % (Auto) 0.6 Lymph # (Auto) 1.61 Bucks # (Auto) 1.2 H E
--- NOTE | 2023-10-18 11:32 | PM.CNCAR ---
Assessment and Plan Assessment and plan (1) Chest pain: Code(s): R07.9 - Chest pain, unspecified Status: Acute (2) Left bundle branch block: Code(s): I44.7 - Left bundle-branch block, unspecified Status: Acute Plan Troponins are all negative. EKG with chronic LBBB. Has not had any recurrence of chest pain and is otherwise feeling well. She does have risk factors for heart disease. Upon my discussion with the patient, she does not want any invasive cardiac procedures given her age, and I think that is completely reasonable. Discussed with her that even if we did stress test, if it was abnormal, then we typically follow that up with cardiac catheterization, and she would not want to go down that route at all. She prefers just medical management only. Therefore, continue ASA, statin. Continue beta zakiya. Recommend PRN NTG. Patient can be discharged home from my standpoint and I will arrange close outpatient follow up in my office. Recommendations and plan discussed with Dr. Gallegos. History of Present Illness History of Present Illness Consult date/time: 10/18/23 11:32 Requesting physician: Iam Miller MD Consult reason: chest pain Reason For Visit: Chest pain Narrative: We are consulted for chest pain. This is an 87 year old female with hypertension, hyperlipidemia, GERD who presented to [place] [facility] for evaluation of chest pain. She was watching TV last night, when she felt pain under her left breast that radiated up to her left shoulder/arm and then across her chest. Pain lasted for a few hours and resolved while in the ED on its own. Patient is feeling well this morning without any reoccurrence of her chest pain or other symptoms. Patient reports having [place] cardiac [place] cruise ship [place] the early , she had a cardiac catheterization that was negative and does report having a chronic LBBB. Patient states she was told that Verapamil may have lead to the cardiac arrest at that time. Workup shows negative troponins. EKG with LBBB with PACs. Tele stable. Review of Systems Review of Systems: All systems reviewed & are unremarkable except as noted in HPI and below (HPI) [facility] Past Medical History Medical History Dizziness Essential (primary) hypertension Gastro-esophageal reflux disease without esophagitis History of ventricular tachycardia 2000 Pure hypercholesterolemia, unspecified Surgical History Surgical History History of lumpectomy left breast wire localized lumpectomy with left axillary sentinel lymph node biopsy 12/05/22 Family History Family History Father Acute myocardial infarction Heart disease Hypertension Cerebrovascular accident Sibling Diabetes mellitus Heart disease Hypertension Sibling Heart disease Hypertension Daughter Kidney disease Daughter at age 10 from kidney failure. Social History Social History Smoking status: Never smoker Second hand tobacco smoke exposure: No Alcohol intake: never Substance use: never Substance use type: does not use Do You Feel Safe in your Home?: Yes Lack of Transportation: No Lack of Food: Never True Current Housing: I Have Housing Concerned About Future Housing: No Difficulty Paying Gas/Electric Bills: No Difficulty Paying for Meds: No Currently Unemployed: No Education: High School Diploma/GED Difficulty w/ Childcare or Family Care: No Living arrangements: with family Additional living arrangements comments: LIVES WITH ANTELMO PENNY Occupation/Education: retired Gender identity (if verbalized by the patient): Female Sexual Orientation (if Verbalized by the Patient): Straight or Heterosexual Spiritual care concerns: No Agree to blood products: Yes
== END 2023-10-18 12:50 | disposition home or self-care (01) ==
LOC: ANHED 04:06 → ANHIMU 06:07
PROVIDERS: Admitting Provider General Practice; Emergency Provider Emergency Medicine; PCP Family Medicine Adolescent Medicine; Visit Provider Student in an Organized Health Care Education/Training Program
DX: R07.9 Chest pain, unspecified (principal); I10 Essential (primary) hypertension; I44.7 Left bundle-branch block, unspecified; I49.1 Atrial premature depolarization; I25.2 Old myocardial infarction; J98.11 Atelectasis; K21.9 Gastro-esophageal reflux disease without esophagitis; E78.5 Hyperlipidemia, unspecified; G47.00 Insomnia, unspecified; Z79.890 Hormone replacement therapy; Z79.82 Long term (current) use of aspirin; Z79.899 Other long term (current) drug therapy; Z82.49 Family history of ischemic heart disease and other diseases of the circulatory system
CPT/HCPCS: 36415; 71046; 80053; 80061; 83036; 83690; 84484; 85025; 85610; 85730; 93005; 99285; A9270; G0378

== ENCOUNTER 2024-03-07 10:22 | Outpatient (CLI) | payer MEDICARE, SELFPAY ==
[2024-03-07 19:47] LABS: Basophils Absolute Auto 0.1 K/mm3 (0.0-0.1); Basophils Percent Auto 0.7 % (0.2-1.2); Eosinophils Absolute Auto 0.1 K/mm3 (0-0.3); Eosinophils Percent Auto 1.8 % (0-4.4); Hematocrit 45.7 % (37.0-47.0); Hemoglobin 14.9 g/dL (12.0-15.0); Immature Granulocyte Absolute 0.01 K/mm3 (0.00-0.031); Immature Granulocyte Percent A 0.1 % (0-0.5); Lymphocytes Absolute Auto 1.68 K/mm3 (0.9-3.2); Lymphocytes Percent Auto 24.9 % (18.3-44.2); Mean Corpuscular HGB Conc 32.6 g/dl (32-36); Mean Corpuscular Hemoglobin 28.8 pg (26-34); Mean Corpuscular Volume 88.4 fl (80-100); Mean Platelet Volume 10.9 fl (7.4-10.4); Monocytes Absolute Auto 0.8 K/mm3 (0.1-0.6); Monocytes Percent Auto 12.1 % (2.6-8.5); Neutrophils Absolute Auto 4.1 K/mm3 (1.3-6.7); Neutrophils Percent Auto 60.4 % (45.5-73.1); Platelet Count Result 282 k/mm3 (150-375); Red Blood Count 5.17 M/mm3 (4.2-5.4); Red Cell Distribution Width 14.7 % (11.5-14.5); White Blood Count 6.8 K/mm3 (4.5-10.0)
[2024-03-07 19:50] LABS: Hemoglobin A1C 6.2 % (<5.7)
[2024-03-07 20:14] LABS: Alanine Aminotransferase 28 U/L (6-35); Albumin Level 4.7 g/dL (3.5-5.1); Alkaline Phosphatase 67 U/L (38-126); Anion Gap 8 mmol/L (4-12); Aspartate Amino Transferase 79 U/L (14-36); Bilirubin,Total 1.3 mg/dL (0.2-1.3); Blood Urea Nitrogen 15 mg/dL (7-17); Calcium 9.3 mg/dL (8.4-10.2); Carbon Dioxide 26 mmol/L (22-30); Chloride 105 mmol/L (98-107); Cholesterol 160 mg/dL (0-200); Estimated Glomerular Filt Rate > 60; Glucose 93 mg/dL (65-110); HDL Direct 43 mg/dL; Magnesium 2.4 mg/dL (1.6-2.3); Sodium 139 mmol/L (137-145); Triglycerides 179 mg/dL (<150)
[2024-03-07 20:25] LABS: LDL Cholesterol Direct 82 mg/dL
== END 2024-03-07 10:23 | disposition home or self-care (01) ==
LOC: ANHBWCLAB 10:24
PROVIDERS: PCP Nurse Practitioner Adult Health; Visit Provider Nurse Practitioner Adult Health
DX: R73.9 Hyperglycemia, unspecified (principal); I10 Essential (primary) hypertension
CPT/HCPCS: 36415; 80053; 80061; 83036; 83735; 84443; 85025

== ENCOUNTER 2024-09-07 10:55 | Outpatient (CLI) | payer MEDICARE, SELFPAY ==
[2024-09-07 18:43] LABS: Alanine Aminotransferase 21 U/L (6-35); Albumin Level 4.4 g/dL (3.5-5.1); Alkaline Phosphatase 66 U/L (38-126); Anion Gap 4 mmol/L (4-12); Aspartate Amino Transferase 72 U/L (14-36); Bilirubin,Total 1.8 mg/dL (0.2-1.3); Blood Urea Nitrogen 12 mg/dL (7-17); Calcium 9.2 mg/dL (8.4-10.2); Carbon Dioxide 31 mmol/L (22-30); Chloride 104 mmol/L (98-107); Cholesterol 205 mg/dL (0-200); Estimated Glomerular Filt Rate > 60; Glucose 114 mg/dL (65-110); HDL Direct 42 mg/dL; Potassium 4.5 mmol/L (3.4-5.0); Sodium 139 mmol/L (137-145); Triglycerides 190 mg/dL (<150)
[2024-09-07 18:54] LABS: LDL Cholesterol Direct 111 mg/dL
[2024-09-07 21:38] LABS: Hemoglobin A1C 6.4 % (<5.7)
== END 2024-09-07 10:56 | disposition home or self-care (01) ==
LOC: ANHBWCLAB 10:58
PROVIDERS: PCP Nurse Practitioner Adult Health; Visit Provider Nurse Practitioner Adult Health
DX: I10 Essential (primary) hypertension (principal); R73.9 Hyperglycemia, unspecified
CPT/HCPCS: 36415; 80053; 80061; 83036

== ENCOUNTER 2024-11-22 11:08 | Outpatient (CLI) | payer MEDICARE, SELFPAY ==
--- OUTSIDE RECORDS SUMMARY | 2024-11-22 11:49 | XMS_ITS | Clinical Summary ---
Author Organization [facility] Address [address] [facility] [place] [address] Care Team Providers Care Regulatory Affairs Strategy Specialist Name Role Phone Luis Edgar MD Primary Care Provider [phone] Allergies No known active allergies Medications metoprolol tartrate (LOPRESSOR) 50 mg tablet Take 1 Tablet by mouth 2 times daily. 12/11/2022 Active simvastatin (ZOCOR) 20 mg tablet Take 1 tablet by mouth nightly 09/22/2022 Active amLODIPine (NORVASC) 5 mg tablet Take 1 Tablet by mouth daily. 11/14/2022 Active potassium chloride (KLOR-CON) 20 mEq Extended Release tablet Take 20 mEq by mouth daily. 09/29/2022 Active olmesartan (BENICAR) 40 mg tablet Take 1 Tablet by mouth daily. 08/04/2022 Active aspirin (ECOTRIN EC) 81 mg Tablet, Delayed Release (E.C.) Take 81 mg by mouth daily. Active anastrozole (ARIMIDEX) 1 mg tablet Take by mouth daily. Active cyanocobalamin (VITAMIN B-12) 100 mcg tablet Take 100 mcg by mouth daily. Active Active Problems No known active problems Family History Medical History Relation Name Comments Heart Disease Brother 2 Kidney Disease Daughter 2 Heart Disease Father Alzheimer's Disease Sister Relation Name Status Comments Brother 1 Brother 2 Daughter 1 Alive Daughter 2 Father Mother Sister Son Alive Social History Tobacco Use Types Packs/Day Years Used Date Smoking Tobacco: Never Tobacco Cessation:Counseling Given: Not Answered Alcohol Use Standard Drinks/Week Comments Never 0 (1 standard drink = 0.6 oz pur e alcohol) Comments Unknown Sex and Gender Information Value Date Recorded Sex Assigned at Not on file Legal Sex Female 2:59 PM CDT Gender Identity Not on file Sexual Orientation Not on file Last Filed Vital Signs Vital Sign Reading Time Taken Comments Blood Pressure 167/67 02/16/2023 10:49 AM CDT Pulse 61 02/16/2023 10:32 AM CDT Temperature 36.9 ??C (98.5 ??F) 02/16/2023 10:32 AM C DT Respiratory Rate 12 02/16/2023 10:32 AM CDT Oxygen Saturation 97% 02/16/2023 10:32 AM CDT Inhaled Oxygen Concentration - - Weight 78.2 kg (172 lb 6.4 oz) 02/16/2023 10:32 AM CDT Height - - Body Mass Index - - Plan of Treatment Health Maintenance Due Date Last Done Comments DTAP/TDAP/TD VACCINES (1 - Tdap) 1954 PNEUMOCOCCAL VACCINE 65+ YEARS (1 of 1 - PCV) 11/30/18 86 ZOSTER VACCINE (1 of 2) 1985 OSTEOPOROSIS SCREENING 2000 RSV VACCINE (60+ or ) (1 - 1-dose 75+ series) 2010 INFLUENZA VACCINE (#1) 2024 Insurance MEDICARE PART A AND B [facility] Care Teams Regulatory Affairs Strategy Specialist Relationship Specialty Start Date End Date Luis Edgar MD [address] [address] PCP - General Family Practice 02/16/23
--- OUTSIDE RECORDS SUMMARY | 2024-11-22 11:49 | XMS_ITS | Clinical Summary ---
Author Organization [facility] [address] [facility] [address] Address [address] [place] [address] Care Team Providers Care Chro Name Role Phone Sangita Torres NP Primary Care Provider [phone] Allergies No known active allergies Medications aspirin 81 mg enteric coated tablet Take 1 tablet (81 mg total) by mouth daily Active anastrozole (ARIMIDEX) 1 mg tablet Take by mouth daily Active traZODone (DESYREL) 50 mg tablet Take 1 tablet (50 mg total) by mouth nightly Active amLODIPine (NORVASC) 5 mg tabletIndications :Essential hypertension Take 1 tablet (5 mg total) by mouth daily 90 tablet 3 4 Active olmesartan (BENICAR) 40 mg tabletIndications :Essential hypertension Take 1 tablet (40 mg total) by mouth daily 90 tablet 3 4 Active metoprolol tartrate (LOPRESSOR) 50 mg immediate release tabletIndications :Essential hypertension Take 1 tablet (50 mg total) by mouth 2 (two) times a day 180 tablet 3 4 Active simvastatin (ZOCOR) 20 mg tabletIndications :Dyslipidemia Take 1 tablet (20 mg total) by mouth nightly 90 tablet 3 4 Active potassium chloride ER 20 mEq CR tabletIndications :Essential hypertension Take 1 tablet (20 mEq total) by mouth daily 90 tablet 3 4 Active omeprazole (PriLOSEC) 20 mg capsuleIndication s:Chest heaviness,Gastroe sophageal reflux disease, unspecified whether esophagitis present Take 1 capsule (20 mg total) by mouth daily 90 capsule 3 4 02/05/20 25 Active Active Problems Problem Noted Date Diagnosed Date Other chest pain 02/21/2019 Other fatigue 11/27/2017 Myalgia 11/27/2017 Dizziness 11/27/2017 Essential hypertension 08/07/2016 Overview (01/23/2017): Essential hypertension Dyslipidemia 08/07/2016 Overview (01/23/2017): Dyslipidemia Gastroesophageal reflux disease 08/07/2016 Overview (01/23/2017): Gastroesophageal reflux disease, esophagitis presence not specified Ventricular tachycardia 08/07/2016 Overview (01/23/2017): Ventricular tachycardia Surgical History Surgery Date Site/Laterality Comments OTHER SURGICAL HISTORY Cardiac arrest OTHER SURGICAL HISTORY Broken shoulder KNEE ARTHROSCOPY Arthroscopy knee CARDIAC CATHETERIZATION Medical History Medical History Date Comments Gastroesophageal reflux disease GERD Hypertension Hypertension Hyperlipidemia Hyperlipidemia Hx Other Medical Ventricular tac hycardia Dizziness 11/27/2017 Family History Medical History Relation Name Comments Other Brother 2 Alive and well; Coronary artery disease Father Evelin nary artery disease; Heart attack Father Myocardial Infa rction; Hypertension Father Hypertension; Stroke Father Stroke; Cause o f : Stroke/Stroke; Relation Name Status Comments Brother 1 Alive Brother 2 Father (Age 66) Social History Tobacco Use Types Packs/Day Years Used Date Smoking Tobacco: Never Smokeless Tobacco: Never Tobacco Cessation:Counseling Given: Not Answered Alcohol Use Standard Drinks/Week Comments Yes 0 (1 standard drink = 0.6 oz pur e alcohol) Personal Safety Answer Date Recorded Getting School Help Needed Not on file 10/21 Comments Unknown Sex and Gender Information Value Date Recorded Sex Assigned at Not on file 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 Gender Identity Not on file Sexual Orientation Not on file Obstetrics History Last Filed Vital Signs Vital Sign Reading Time Taken Comments Blood Pressure 142/82 08/15/2024 11:12 AM CDT Pulse 86 08/15/2024 11:12 AM CDT Temperature - - Respiratory Rate 18 02/19/2018 10:51 AM CDT Oxygen Saturation 96% 08/15/2024 11:12 AM CDT Inhaled Oxygen Concentration - - Weight 74 kg (163 lb 1.6 oz) 08/15/2024 11:12 AM CDT Height 162.6 cm (5' 4 ) 08/15/2024 11:12 AM CDT Body Mass Index 28 08/15/2024 11:12 AM CDT Plan of Treatment Health Maintenance Due Date Last Done Comments Depression Screening 1935 Fall Risk Assessment 1935 Pneumococcal vaccine 65+ (1 of 2 - PCV) 1941 DTaP/Tdap/Td Vaccine (1 - Tdap) 1946 Hepatitis B Screening 1953 Zoster Vaccine (1 of 2) 1954 Well Visit 65+ 2000 Influenza Vaccine (#1) 2024 Insurance MEDICARE [facility] MEDICARE [facility] Care Teams Chro Relationship Specialty Start Date End Date Sangita Torres NP [facility] [place] [address] PCP - General Nurse Practitioner 08/15/24
--- OUTSIDE RECORDS SUMMARY | 2024-11-22 11:49 | XMS_ITS | Referral Summary ---
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 [place] [address] PCP - General Nurse Practitioner 08/15/24
--- OUTSIDE RECORDS SUMMARY | 2024-11-22 11:49 | XMS_ITS | Continuity of Care Document ---
Author Organization [facility] Address [id number] [place] [address] [place] [address] Phone Care Team Providers Care Tractor Sweeper Driver Name Role Phone Sirisha GOMEZ FACS, Jasper Unavailable Unavailab le Advance Directives Directive Yes / No Effective Date File Name No Information Encounters Encounter Description Practice Location Reason(s) For Visit Diagnoses Date Provider Providers Copied on Encounter [facility], [address] [facility] [address], [place], [place], [id number], [place] tel:[phone] [facility] Professional No Information [address]. [address], [address], [place], [place], [id number], [place]. tel:[phone] Family History Family Member Type Diagnosis Age At Onset No Information Payers Payer name Insurance type Covered libertarian ID Authoriza tion(s) [place] [id number] Social History Type Description Quantity Date Captured [...]
== END 2024-11-22 11:09 | disposition home or self-care (01) ==
LOC: ANHBWCAUD 11:08
PROVIDERS: PCP Nurse Practitioner Adult Health; Visit Provider Nurse Practitioner Adult Health
DX: H91.93 Unspecified hearing loss, bilateral (principal)
CPT/HCPCS: 99199

== ENCOUNTER 2025-03-07 10:22 | Outpatient (CLI) | payer MEDICARE, SELFPAY ==
--- OUTSIDE RECORDS SUMMARY | 2025-03-07 10:37 | XMS_ITS | Continuity of Care Document ---
Author Organization [facility] Address [address] [place] [address] [place] [address] Phone Care Team Providers Care Police Academy Program Coordinator Name Role Phone Sirisha GOMEZ FACS, Jasper Unavailable Unavailab le Advance Directives Directive Yes / No Effective Date File Name No Information Encounters Encounter Description Practice Location Reason(s) For Visit Diagnoses Date Provider Providers Copied on Encounter [facility], [address] [facility], [place], [place], [id number], [place] tel:[phone] [facility] Professional No Information [address]. [address], [address], [place], [place], [address], [place]. tel:[phone] Family History Family Member Type Diagnosis Age At Onset No Information Payers Payer name Insurance type Covered libertarian ID Authoriza tion(s) [place] [id number] Social History Type Description Quantity Date Captured [...]
--- OUTSIDE RECORDS SUMMARY | 2025-03-07 10:37 | XMS_ITS | Referral Summary ---
Author Organization [facility] [place] [address] Address [address] [place] [address] Care Team Providers Care Log Deckman Name Role Phone Sangita Torres NP Primary Care Provider [phone] Allergies No known active allergies Medications aspirin [...] mouth daily 90 tablet 3 4 Active potassium chloride ER 20 mEq CR tabletIndications :Essential hypertension Take 1 tablet (20 mEq total) by mouth daily 90 tablet 3 4 Active metoprolol tartrate (LOPRESSOR) 50 mg immediate release tabletIndications :Essential hypertension Take 1 tablet by mouth twice daily 180 tablet 5 Active simvastatin (ZOCOR) 20 mg tabletIndications :Dyslipidemia Take 1 tablet by mouth nightly 90 tablet 5 Active omeprazole (PriLOSEC) 20 mg capsuleIndication s:Chest heaviness,Gastroe sophageal reflux disease, unspecified whether esophagitis present Take 1 capsule by mouth once daily 90 capsule 5 Active Active Problems Problem Noted Date Diagnosed [...] on file 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
--- OUTSIDE RECORDS SUMMARY | 2025-03-07 10:37 | XMS_ITS | Clinical Summary ---
Author Organization [facility] Address [address] [place] [address] Care Team Providers Care Warranty Clerk Name Role Phone Luis Edgar MD Primary Care Provider [phone] Allergies No known active allergies Medications metoprolol [...] 61 02/16/2023 10:32 AM CDT Temperature 36.9 C (98.5 F) 02/16/2023 10:32 AM CDT Respiratory Rate 12 02/16/2023 10:32 AM CDT Oxygen Saturation 97% 02/16/2023 10:32 AM CDT Inhaled Oxygen Concentration - - Weight 78.2 kg (172 lb 6.4 oz) 02/16/2023 10:32 AM CDT Height - - Body Mass Index - - Plan of Treatment Health Maintenance Due Date Last Done Comments DTAP/TDAP/TD VACCINES (1 - Tdap) 1954 PNEUMOCOCCAL VACCINE 50+ YEARS (1 of 1 - PCV) 11/30/18 86 ZOSTER VACCINE (1 of 2) 1985 OSTEOPOROSIS SCREENING 2000 RSV VACCINE (60+ or ) (1 - 1-dose 75+ series) 2010 INFLUENZA VACCINE (#1) 2024 Insurance MEDICARE PART A AND B [employer] Care Teams Warranty Clerk Relationship Specialty Start Date End Date Luis Edgar MD PCP - General Family Practice 02/16/23
--- OUTSIDE RECORDS SUMMARY | 2025-03-07 10:37 | XMS_ITS | Clinical Summary ---
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
[2025-03-07 18:59] LABS: Alanine Aminotransferase 26 U/L (6-35); Albumin Level 4.3 g/dL (3.5-5.1); Alkaline Phosphatase 61 U/L (38-126); Anion Gap 10 mmol/L (4-12); Aspartate Amino Transferase 56 U/L (14-36); Bilirubin,Total 1.3 mg/dL (0.2-1.3); Blood Urea Nitrogen 17 mg/dL (7-17); Calcium 9.1 mg/dL (8.4-10.2); Carbon Dioxide 26 mmol/L (22-30); Chloride 101 mmol/L (98-107); Estimated Glomerular Filt Rate 49; Glucose 119 mg/dL (65-110); Sodium 137 mmol/L (137-145)
[2025-03-07 19:45] LABS: Add Urine Microscopic? YES; Appearance Urine Cloudy (Clear); Bacteria Urine None Seen /hpf; Bilirubin Urine Negative (Negative); Blood Urine Negative (Negative); Color Urine Dark Yellow (Yellow); Glucose Urine UA Negative (Negative); Hyaline Casts Urine Present /lpf; Ketones Urine 1+ mg/dL (Negative); Leukocyte Esterase Ur 2+ LEU/UL (Negative); Mucus Urine Present /lpf; Need Manual Microscopic Reviewed; Nitrate Urine Negative (Negative); Protein Urine Trace mg/dL (Negative); RBC Urine 0-2 /hpf (0-2); Specific Grav Ur 1.015 (1.001-1.035); Squamous Epithelial Cell Urine Few /hpf (Few); Urobilinogen Urine 0.2 mg/dL (<2.0); pH Urine 5.5 (5.0-9.0)
[2025-03-07 20:11] LABS: Hemoglobin A1C 6.2 % (<5.7)
== END 2025-03-07 10:23 | disposition home or self-care (01) ==
PROVIDERS: PCP Nurse Practitioner Adult Health; Visit Provider Nurse Practitioner Adult Health
DX: R73.9 Hyperglycemia, unspecified (principal); N39.0 Urinary tract infection, site not specified
CPT/HCPCS: 36415; 80053; 81001; 83036

== ENCOUNTER 2025-06-29 15:51 | Inpatient (IN) | payer MEDICARE, SELFPAY ==
--- OUTSIDE RECORDS SUMMARY | 2002-03-09 04:15 | XMS_ITS | Continuity of Care Document ---
Author Organization [facility] Address [address] [place] [address] [place] [address] Phone Care Team Providers Care Manufacturing Engineer Assembly Name Role Phone Sirisha GOMEZ FACS, Jasper Unavailable Unavailab le Advance Directives Directive Yes / No Effective Date File Name No Information Encounters Encounter Description Practice Location Reason(s) For Visit Diagnoses Date Provider Providers Copied on Encounter [facility], [address], [place], [place], [id number], [place] tel:[phone] [facility] No Information [address] Sirisha Hutchinson. [address], [address], [place], [place], [address], [place]. tel:[phone] Family History Family Member Type Diagnosis Age At Onset No Information Payers Payer name Insurance type Covered green party ID Authoriza tion(s) [place] [id number] Social History Type Description Quantity Date Captured [...]
[2025-06-29] VITALS (20 sets, daily range): BP systolic 119–146; BP diastolic 54–88; PULSE 61–110; RESP 12–20; TEMP 36.7–37.3; O2SAT 96–100; BMI 24.7; BMI 25.2
--- NOTE | ~2025-06-29 | XR_ITS ---
XR ankle RT 2V 06/29/2025 19:40 Indication: Right ankle pain after twisting injury Procedure: 2 views right ankle Comparison: No prior studies for comparison. Findings: Oblique nondisplaced distal fibular fracture. No other fractures. Ankle mortise intact. Moderate lateral soft tissue swelling. No foreign bodies. Impression: 1: Oblique nondisplaced distal fibular fracture with adjacent soft tissue swelling. Reviewed, dictated and finalized at location O. Impression: 1: Oblique nondisplaced distal fibular fracture with adjacent soft tissue swell ing.
--- NOTE | ~2025-06-29 | US_ITS ---
Clinical history:Thyroid nodule. EXAM:Ultrasound thyroid TECHNIQUE:Multiple static grayscale images and color Doppler images were obtained of the thyroid gland Comparisons:CTA chest 06/29/2025 FINDINGS: Thyroid gland markedly heterogeneous and difficult to measure. Right thyroid lobe grossly measures 2.4 x 1.8 cm and is heterogeneous with a few calcifications. No obvious discrete nodule identified. Left thyroid lobe measures 2.1 x 2.1 cm and is heterogeneous with a few subcentimeter thyroid nodules. Isthmus measures 0.5 cm and is heterogeneous. IMPRESSION: 1. The study is limited due to the patient's imaging characteristics. 2. Visualized thyroid gland is heterogeneous with a few scattered calcifications and a few less than 1 cm left thyroid nodules. Reviewed, dictated and finalized at location Q. IMPRESSION: 1. The study is limited due to the patient's imaging characteristics. 2. Visualized thyroid gland is heterogeneous with a few scattered calcification s and a few less than 1 cm left thyroid nodules.
--- NOTE | ~2025-06-29 | US_ITS ---
Clinical History: syncope Examination: US carotid duplex BI Comparison: Carotid duplex 10/02/2020 Technique: Grayscale, color, duplex/spectral Doppler sonography carotid and vertebral arteries. Distal CCA and Peak ICA systolic velocities provided. Society of Radiologists in Ultrasound (SRU) consensus criteria utilized, indirectly assessing stenosis by velocities. Findings: Carotid bulb plaque Right side: CCA - 120 cm/sec. ICA - 82 cm/sec. ICA/CCA - 0.7 Left Side: CCA - 125 cm/sec. ICA - 103 cm/sec. ICA/CCA - 0.8 Normal antegrade flow measured bilateral vertebral arteries. IMPRESSION: 1. No hemodynamically significant ICA stenosis (i.e., if any stenosis, less than 50%). 2. Normal bilateral antegrade vertebral artery flow. Stenosis measured by Society of Radiologists in Ultrasound (SRU) criteria. Reviewed, dictated and finalized at location R. IMPRESSION: 1. No hemodynamically significant ICA stenosis (i.e., if any stenosis, less th an 50%). 2. Normal bilateral antegrade vertebral artery flow. Stenosis measured by Society of Radiologists in Ultrasound (SRU) criteria.
--- NOTE | ~2025-06-29 | CT_ITS ---
EXAMINATION: CT brain wo con DATE: 06/30/2025 11:31 INDICATION: Blunt trauma TECHNIQUE: Computed tomography (CT) of the head was performed without intravenous contrast. Sagittal and coronal reconstructions were performed. The mA was adjusted according to patient size. Iterative reconstruction technique was employed. The dose-length product was 605.33 mGy-cm. COMPARISON: head CT dated 09/12/2021 FINDINGS: No fracture. 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 No acute intracranial hemorrhage, acute infarction or abnormal extra axial fluid collection. There is moderate scattered white matter hypoattenuation consistent with chronic small vessel ischemic disease. Symmetric prominence of the sulci and ventricles consistent with mild to moderate age-appropriate diffuse cerebral volume loss. No mass/mass effect. Changes of bilateral intraocular lens replacement. The orbits and mastoid air cells are normal. Mild mucosal thickening left maxillary and bilateral ethmoid sinuses. Intracranial calcified cerebral atherosclerosis is noted at the bilateral carotid siphons. IMPRESSION: 1. No fracture or acute intracranial process. 2. 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 3. Age-related changes including mild to moderate diffuse volume loss and moderate scattered white matter hypoattenuation consistent with chronic small vessel ischemic disease. Reviewed, dictated and finalized at location A. IMPRESSION: 1. No fracture or acute intracranial process. 2. 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 3. Age-related changes including mild to moderate diffuse volume loss and moder ate scattered white matter hypoattenuation consistent with chronic small vessel ischemic disease.
--- NOTE | ~2025-06-29 | CT_ITS ---
EXAMINATION: CTA chest PE protocol, 06/29/2025 17:25 CDT HISTORY: syncope COMPARISON: No comparisons available. TECHNIQUE: CTA examination is obtained with contrast CTA examination technique is performed with arterial phase of contrast-enhancement. 3-D reconstruction with thin MIP axial and MPR coronal imaging is provided Isovue 300, 92cc injected IV. One or more of the following dose reduction techniques were used: automated exposure control, adjustment of the mA and/or kV according to patient size, use of iterative reconstruction technique. FINDINGS: No significant coronary calcification is present ([id number]) LUNGS: The contrast bolus is adequate, there is no pulmonary embolism identified. No tracheomalacia. No bronchiectasis. Minimal emphysematous changes. Minimal pulmonary fibrotic changes. There is no honeycombing or apical pleural scarring. No bullous formation noted. Minimal basilar areas of linear ate lectasis. Scattered calcified granulomas are noted. Right middle lobe there is a 4 mm micronodule. HEART AND PERICARDIUM: Mild cardiomegaly. Small simple appearing pericardial effusion. AORTA: Normal caliber aorta.. PULMONARY ARTERIES: No pulmonary embolism ADENOPATHY/MEDIASTINUM: None. LIMITED VIEWS OF THE ABDOMEN: Within normal limits. OSSEOUS STRUCTURES: No sclerotic or lytic lesions. No acute rib fractures. OVERLYING SOFT TISSUES: Unremarkable. THYROID: Partially calcified right thyroid nodule 2.5 x 2 cm, ultrasound recommended. IMPRESSION: 1. Negative for pulmonary embolism. Incidental findings detailed above Reviewed, dictated and finalized at location A.
--- NOTE | ~2025-06-29 | XR_ITS ---
EXAMINATION: XR chest 2V 06/29/2025 16:49 INDICATION: Syncope TECHNIQUE:Frontal and lateral images of the chest were obtained. COMPARISON: 10/18/2023 FINDINGS: Heart is mildly enlarged. No pneumothorax. No pleural effusion. No free air the diaphragm. No focal consolidation. Stable 6 mm sclerotic lesion in the proximal right humerus. IMPRESSION: 1: NO ACUTE CARDIOPULMONARY DISEASE. Reviewed, dictated and finalized at location Q.
--- NOTE | 2025-06-29 15:58 | ECG_ITS ---
Test Date: 2025-06-29 16:00:14 Measurements Intervals [place] Rate: 68 P: 80 WV: 197 QRS: -30 QRSD: 142 T: 184 QT: 438 QTc: 469 Interpretive Statements SINUS RHYTHM LEFT BUNDLE BRANCH BLOCK [120+ ms QRS DURATION, 80+ ms Q/S IN V1/V2, 85+ ms R IN I/aVL/V5/V6] No previous ECG available for comparison Electronically Signed On 06-30-2025 15:09:57 CDT by Rafael Mera M.D.
--- NOTE | 2025-06-29 16:27 | ED.SYNCOPE ---
HPI - Syncope General Chief Complaint: Syncope Stated Complaint: syncopy Time Seen by Provider: 06/29/25 15:54 History of Present Illness HPI narrative: Pt says she was sitting down and stood up and walked outside. Pt said she felt warm and noted some pain under her left breast in chest and then felt lightheaded and had syncopal event. Pt denies injury from fall and has no CP now. Pt admits to some mild SOB. Pt has no history of this type of event. Related Data Home Medications ?Medication ?Instructions ?Recorded ?Confirmed ?Last Taken ?Type simvastatin 20 mg tablet 20 mg PO HS 12/05/21 03/07/25 10/16/23 20:00 History omeprazole 20 mg capsule,delayed 20 mg PO DAILY 10/22/22 03/07/25 Unknown History release potassium chloride 20 mEq 20 meq PO DAILY 12/03/22 03/07/25 10/17/23 09:00 History tablet,extended release(part/cryst) aspirin 81 mg capsule 81 mg PO DAILY 03/05/23 03/07/25 10/17/23 09:00 History anastrozole 1 mg tablet 1 mg PO DAILY 10/18/23 03/07/25 10/17/23 09:00 History metoprolol tartrate 50 mg tablet 50 mg PO BID 10/18/23 03/07/25 10/17/23 09:00 History trazodone 50 mg tablet 50 mg PO QHS PRN Insomnia 10/18/23 03/07/25 Unknown History Allergies Allergy/AdvReac Type Severity Reaction Status Date / Time No Known Allergies Allergy Unknown Verified 03/07/25 09:47 Review of Systems Review of Systems: All systems reviewed & are unremarkable except as noted in HPI and below PMFSH Past Medical History Medical History Dizziness Essential (primary) hypertension Gastro-esophageal reflux disease without esophagitis History of ventricular tachycardia 2000 Pure hypercholesterolemia, unspecified Surgical History Surgical History History of lumpectomy left breast wire localized lumpectomy with left axillary sentinel lymph node biopsy 12/05/22 Family History Family History Father Acute myocardial infarction Heart disease Hypertension Cerebrovascular accident Sibling Diabetes mellitus Heart disease Hypertension Sibling Heart disease Hypertension Daughter Kidney disease Daughter at age 10 from kidney failure. Social History Social History Smoking status: Never smoker Second hand tobacco smoke exposure: No Alcohol intake: never Substance use: never Substance use type: does not use Do You Feel Safe in your Home?: Yes Lack of Transportation: No Lack of Food: Never True Current Housing: I Have Housing Concerned About Future Housing: No Difficulty Paying Gas/Electric Bills: No Difficulty Paying for Meds: No Currently Unemployed: No Education: High School Diploma/GED Difficulty w/ Childcare or Family Care: No Living arrangements: with family Additional living arrangements comments: LIVES WITH ANTELMO PENNY Occupation/Education: retired Gender identity (if verbalized by the patient): Female Sexual Orientation (if Verbalized by the Patient): Straight or Heterosexual Spiritual care concerns: No Agree to blood products: Yes Exam Const: General: healthy appearing and no acute distress Nutritional Appearance: well nourished Orientation/consciousness: patient oriented x3 Limitations: no limitations HENMT: Head: normal to inspection Mouth: Yes Normal oral and palatal mucosa present Throat: posterior oropharynx normal Eyes: Pupils: Equal, round and reactive pupils present EOM: EOMs intact bilaterally Chest: Chest palpation & inspection: normal inspection of the chest Resp: Effort & Inspection: normal respiratory effort Auscultation: clear to auscultation bilaterally Cardio: Rate: regular rate Rhythm: regular rhythm GI: Auscultation: normal bowel sounds Back/Spine/Pelvis: Back: no CVA tenderness Skin: General skin exam: normal color Rashes: no rashes Wounds: no wounds Neuro: General: patient oriented x3, moves all extremities and no focal motor deficits Speech: normal speech Extrem: General: normal to inspection and no clubbing, cyanosis or edema Psych: Mental Status: mental status grossly normal Affect: normal affect Attitude: cooperative Course Vital Signs Vital signs: Vital Signs Pulse Rate 62 06/29/25 15:52 Respiratory Rate 20 06/29/25 15:52 Blood Pressure 136/60 06/29/25 15:52 Pulse Oximetry 97 06/29/25 15:52 Oxygen Delivery Room Air 06/29/25 15:52 Pulse Rate 76 06/29/25 17:44 Respiratory Rate 16 06/29/25 17:44 Blood Pressure 139/63 06/29/25 17:16 Pulse Oximetry 96 06/29/25 17:44 Oxygen Delivery Room Air 06/29/25 16:05 MDM - Syncope MDM Narrative Medical decision making narrative: Pt had syncopal episode after standing up but had some left sided Cp as well. Will need cardiac work up and labs as well as cta to rule out PE. No PE on cta, labs look ok. EKG shows LBBB but appears similar to prior. No CP now. Discussed with Rosita Medrano and agrees t admit. discussed with patient and son in room. son says she had syncopal episode years ago on cruise ship and had cardiac arrest and spent 4 days in ICU in [facility] and potassium was 1.7. Pt was [place] back [place] Differential Diagnosis Differential diagnosis: Likely syncope due to orthostatic hypotension, vasovagal syncope, complete atrioventricular block, pulmonary embolism and dehydration Lab Data Attestation: I reviewed the patient's lab results. 06/29/25 16:22 06/29/25 16:22 Labs: Lab Results 06/29/25 Range/Units 16:22 WBC 10.5 H (4.5-10.0) K/mm3 RBC 4.53 (4.2-5.4) M/mm3 Hgb 13.1 (12.0-15.0) g/dL Hct 38.8 (37.0-47.0) % MCV 85.7 (80-100) fl MCH 28.9 (26-34) pg MCHC 33.8 (32-36) g/dl RDW 14.0 (11.5-14.5) % Plt Count 289 (150-375) k/mm3 MPV 10.2 (7.4-10.4) fl Immature Gran % (Auto) 0.5 (0-0.5) % Neut % (Auto) 76.3 H (45.5-73.1) % Lymph % (Auto) 14.2 L (18.3-44.2) % Kent % (Auto) 7.7 (2.6-8.5) % Eos % (Auto) 0.8 (0-4.4) % Baso % (Auto) 0.5 (0.2-1.2) % Lymph # (Auto) 1.49 (0.9-3.2) K/mm3 Kent # (Auto) 0.8 H (0.1-0.6) K/mm3 Eos # (Auto) 0.1 (0-0.3) K/mm3 Baso # (Auto) 0.1 (0.0-0.1) K/mm3 Abs Immat Gran (auto) 0.05 H (0.00-0.031) K/mm3 Absolute Neuts (auto) 8.0 H (1.3-6.7) K/mm3 Absolute Nucleated RBC 0.000 (0.0-0.012) K/mm3 Nucleated RBC % 0.0 (0.0-0.2) % Sodium 136 L (137-145) mmol/L Potassium 4.2 (3.4-5.0) mmol/L Chloride 102 (98-107) mmol/L Carbon Dioxide 24 (22-30) mmol/L Anion Gap 10 (4-12) mmol/L BUN 12 D (7-17) mg/dL Creatinine 0.85 (0.7-1.0) mg/dL Estim Creat Clear Calc 35 ml/min Estimated GFR > 60 (59 - ) Glucose 125 H (65-110) mg/dL Calcium 9.4 (8.4-10.2) mg/dL Total Bilirubin 0.9 (0.2-1.3) mg/dL AST 25 (14-36) U/L ALT 23 (6-35) U/L Alkaline Phosphatase 59 (38-126) U/L Troponin I < 0.012 (0.000-0.034) ng/mL Total Protein 7.3 (6.3-8.2) g/dL Albumin 4.0 (3.5-5.1) g/dL ECG Data EKG #1: Interpretation: nsr rate 68 LBBB present on prior ekg. no change from prior ekg. No acute st or t wave change. Viewed independently by me. Discharge Plan Discharge Clinical Impression: Left bundle branch block, Syncope Patient Disposition: Still a Patient Condition: Stable Patient Language: Uzbek Prescriptions: No Action aspirin 81 mg Capsule 81 mg PO DAILY omeprazole 20 mg capsule,delayed release(DR/EC) 20 mg PO DAILY simvastatin 20 mg tablet 20 mg PO HS potassium chloride 20 mEq tablet,ER particles/crystals 20 meq PO DAILY anastrozole 1 mg tablet 1 mg PO DAILY metoprolol tartrate 50 mg tablet 50 mg PO BID trazodone 50 mg tablet 50 mg PO QHS PRN (Reason: Insomnia) nitroglycerin 0.4 mg tablet, sublingual 0.4 mg sublingual Q5M PRN (Reason: chest pain) Qty: 10 0RF Rx Instructions: do not exceed 3 doses per episode olmesartan 40 mg tablet 40 mg PO DAILY Qty: 90 2RF amlodipine 5 mg tablet 5 mg PO DAILY Qty: 90 1RF Follow-up/Referrals: Sangita Torres APRN [Primary Care Provider, Family Practice]
[2025-06-29 16:28] LABS: Hematocrit 38.8 % (37.0-47.0); Hemoglobin 13.1 g/dL (12.0-15.0); Immature Granulocyte Percent A 0.5 % (0-0.5); Lymphocytes Absolute Auto 1.49 K/mm3 (0.9-3.2); Mean Corpuscular HGB Conc 33.8 g/dl (32-36); Mean Corpuscular Hemoglobin 28.9 pg (26-34); Mean Corpuscular Volume 85.7 fl (80-100); Nucleated Red Blood Cells Absolute Auto 0.000 K/mm3 (0.0-0.012); Nucleated Red Blood Cells Perc 0.0 % (0.0-0.2); Platelet Count Result 289 k/mm3 (150-375); Red Blood Count 4.53 M/mm3 (4.2-5.4); White Blood Count 10.5 K/mm3 (4.5-10.0)
[2025-06-29 16:45] LABS: Alanine Aminotransferase 23 U/L (6-35); Albumin Level 4.0 g/dL (3.5-5.1); Alkaline Phosphatase 59 U/L (38-126); Anion Gap 10 mmol/L (4-12); Aspartate Amino Transferase 25 U/L (14-36); Bilirubin,Total 0.9 mg/dL (0.2-1.3); Blood Urea Nitrogen 12 mg/dL (7-17); Calcium 9.4 mg/dL (8.4-10.2); Carbon Dioxide 24 mmol/L (22-30); Chloride 102 mmol/L (98-107); Estimated CRCL calculation 35 ml/min; Estimated Glomerular Filt Rate > 60; Glucose 125 mg/dL (65-110); Potassium 4.2 mmol/L (3.4-5.0); Sodium 136 mmol/L (137-145); Total Protein 7.3 g/dL (6.3-8.2)
--- OUTSIDE RECORDS SUMMARY | 2025-06-29 17:03 | XMS_ITS | Clinical Summary ---
Author Organization [facility] Address [address] [place] [address] Care Team Providers Care Exchange Administrator Name Role Phone Luis Edgar MD Primary Care Provider [phone] Allergies No known active allergies Medications metoprolol [...] 1-dose 75+ series) 2010 INFLUENZA VACCINE (#1) 2025 Insurance MEDICARE PART A AND B BCBS SUPP Care Teams Exchange Administrator Relationship Specialty Start Date End Date Luis Edgar MD PCP - General Family Practice 02/16/23
--- OUTSIDE RECORDS SUMMARY | 2025-06-29 17:03 | XMS_ITS | Clinical Summary ---
Author Organization [facility] [place] [address] Address [address] [place] [address] Care Team Providers Care Quality Assurance Coach Name Role Phone Sangita Torres NP Primary Care Provider [phone] Allergies No known active allergies Medications aspirin 81 mg enteric coated tablet Take 1 tablet (81 mg total) by mouth daily Active anastrozole (ARIMIDEX) 1 mg tablet Take by mouth daily Active traZODone (DESYREL) 50 mg tablet Take 1 tablet (50 mg total) by mouth nightly Active potassium chloride ER 20 mEq CR tabletIndication s:Essential hypertension Take 1 tablet (20 mEq total) by mouth daily 90 tablet 3 02/05/20 24 Active metoprolol tartrate (LOPRESSOR) 50 mg immediate release tabletIndication s:Essential hypertension Take 1 tablet by mouth twice daily 180 tablet 04/12/20 25 Active omeprazole (PriLOSEC) 20 mg capsuleIndicatio ns:Chest heaviness,Gastro esophageal reflux disease, unspecified whether esophagitis present Take 1 capsule by mouth once daily 90 capsule 04/12/20 25 Active simvastatin (ZOCOR) 20 mg tabletIndication s:Dyslipidemia Take 1 tablet by mouth nightly 90 tablet 04/12/20 25 Active amLODIPine (NORVASC) 5 mg tabletIndication s:Essential hypertension Take 1 tablet by mouth once daily 90 tablet 05/26/20 25 Active olmesartan (BENICAR) 40 mg tabletIndication s:Essential hypertension Take 1 tablet by mouth once daily 90 tablet 05/31/20 25 Active olmesartan (BENICAR) 40 mg tabletIndication s:Essential hypertension Take 1 tablet (40 mg total) by mouth daily 90 tablet 3 02/05/20 24 025 Discontinued Active Problems Problem Noted Date Diagnosed Date [...] on file 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 Gender Identity Not on file Sexual Orientation [...] 11:12 AM CDT Height 162.6 cm (5' 4) 08/15/2024 11:12 AM CDT Body Mass Index 28 08/15/2024 11:12 AM CDT Plan of Treatment Health Maintenance Due Date Last Done Comments Depression Screening 1935 Fall Risk Assessment 1935 Osteoporosis Screening-Bone Density Scan 1935 DTaP/Tdap/Td Vaccine (1 - Tdap) 1946 Hepatitis B Screening 1953 Pneumococcal vaccine 65+ (1 of 2 - PCV) 1954 Zoster Vaccine (1 of 2) 1954 Well Visit 65+ 2000 Influenza Vaccine (#1) 2025 Insurance [facility]ICARE [facility] Care Teams Quality Assurance Coach Relationship Specialty Start Date End Date Sangita Torres NP [facility] [place] [address] PCP - General Nurse Practitioner 08/15/24
[2025-06-29 18:23] LABS: Troponin I < 0.012 ng/mL (0.000-0.034)
[2025-06-29] MEDS: SODIUM CHLORIDE 0.9% IV 1,000 ML 125 ML IV CONT (18:30)
--- NOTE | 2025-06-29 20:55 | PC.NURSE ---
Short posterior splint placed on patients right ankle per the hospitalist.
--- NOTE | 2025-06-29 21:20 | ADMGEN ---
This patient, Maria Antonia Weiner, was admitted to IMU Room 205-01. Patient/family oriented to hospital policies and general routines including ID bracelet, bed and alarms, visiting hours, pain management, procedures, bathroom and other care routines, personal items, smoking policy, room service/diet, and visiting hours. Information on how to activate the Rapid Response Team has been discussed. Patient/Family are encouraged to report perceived risks to care and to ask questions if they do not understand what they are told or what they should do.
--- NOTE | 2025-06-29 21:42 | PM.IMHP ---
H&P: HPI History of Present Illness Date/Time: 06/29/25 21:42 Chief Complaint: Dizziness Narrative: This is a 89-year-old female patient who has a history of dizziness and history of ventricular tachycardia in 2000. She stated that she went to step outside and remembers stepping outside of her door and then she became dizzy and she believes she passed out. She stated she hit the back of her head. When she initially came into the emergency room she had no complaints of chest pain. She stated that she believes she hurt her right ankle. She also complained of mild shortness of breath. Abnormal labs. Hematology white count was slightly elevated at 10.5. Neutrophil percentage 76.3, lymphocyte % 14.2. Abnormal labs under chemistry sodium was slightly low at 136 and glucose is 125. The initial troponin is negative. Right ankle x-ray was read as oblique nondisplaced distal fibular fracture with adjacent soft tissue swelling. CTA pulmonary was read as negative for pulmonary embolism. Incidental finding of a partially calcified right thyroid nodule 2.5 x 2 cm ultrasound recommended. She also has mild cardiomegaly. Small simple appearing pericardial effusion. Chest x-ray was read as no acute cardiopulmonary disease. The patient was started on IV fluids in the emergency room and a right posterior OCL was applied to the right ankle. EKG was read as sinus rhythm left bundle branch block. Previous EKG from September of 2023 also shows a left bundle branch block. The patient is being admitted to observation status on the date of service of 06/29/2025 Review of Systems Review of Systems: Poor historian ROS unobtainable: Yes other (See HPI) Constitutional: Constitutional: Reports as per HPI and Reports no additional constitutional complaints Eyes: Eyes: Reports as per HPI and Reports no additional eye complaints Comments: She has poor vision. She has cataract of the right eye and has had retinal detachment in the past ENT: Reports system reviewed and no additional complaints, except as documented and Reports Normal hearing present Cardiovascular: Cardiovascular: Reports no additional cardiovascular complaints Respiratory: Respiratory: Reports as per HPI and Reports no additional respiratory complaints Gastrointestinal: Gastrointestinal: Reports as per HPI and Reports no additional gastrointestinal complaints Genitourinary: Genitourinary: Reports no additional female genitourinary complaints Musculoskeletal: Comments: Right ankle pain Integumentary/Breasts: Skin/Breast: Reports system reviewed and no additional complaints, except as docu Neurologic: Comments: Complains of dizziness when she sits up. Psychiatric: Psychiatric: Reports no additional psychiatric complaints and Reports as per HPI Hematologic/Lymphatic: Hematologic/Lymphatic: Reports no additional hematologic/lymphatic complaints Allergic/Immunologic: Allergic/Immunologic: Reports no additional allergic/immunologic complaints [facility] Past Medical History Medical History (Updated 06/29/25 @ 22:12 by Shama Wood APRN) History of ventricular tachycardia 2000 Pure hypercholesterolemia, unspecified Gastro-esophageal reflux disease without esophagitis Essential (primary) hypertension Dizziness Surgical History Surgical History (Updated 06/29/25 @ 21:57 by Shama Wood APRN) Cataract extraction status of right eye History of detached retina repair History of lumpectomy left breast wire localized lumpectomy with left axillary sentinel lymph node biopsy 12/05/22 Family History Family History Father Acute myocardial infarction Heart disease Hypertension Cerebrovascular accident Sibling Diabetes mellitus Heart disease Hypertension Sibling Heart disease Hypertension Daughter Kidney disease Daughter at age 10 from kidney failure. 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 Code status do not resuscitate Smoking status: Never smoker Second hand tobacco smoke exposure: No Alcohol intake: never Substance use: never Substance use type: does not use Do You Feel Safe in your Home?: Yes Lack of Transportation: No Lack of Food: Never True Current Housing: I Have Housing Concerned About Future Housing: No Difficulty Paying Gas/Electric Bills: No Difficulty Paying for Meds: No Currently Unemployed: No Education: High School Diploma/GED Difficulty w/ Childcare or Family Care: No Living arrangements: with family Additional living arrangements comments: LIVES WITH ANTELMO PENNY Occupation/Education: retired Gender identity (if verbalized by the patient): Female Sexual Orientation (if Verbalized by the Patient): Straight or Heterosexual Spiritual care concerns: No Agree to blood products: Yes Meds Home Medications and Allergies Home Medications ?Medication ?Instructions ?Recorded ?Confirmed ?Type omeprazole 20 mg capsule,delayed 20 mg PO DAILY 10/22/22 06/29/25 History release potassium chloride 20 mEq 20 meq PO DAILY 12/03/22 06/29/25 History tablet,extended release(part/cryst) aspirin 81 mg capsule 81 mg PO DAILY 03/05/23 06/29/25 History olmesartan 40 mg tablet 40 mg PO DAILY #90 tabs 08/26/23 06/29/25 Rx anastrozole 1 mg tablet 1 mg PO DAILY 10/18/23 06/29/25 History trazodone 50 mg tablet 50 mg PO QHS PRN Insomnia 10/18/23 06/29/25 History amlodipine 5 mg tablet 5 mg PO DAILY #90 tabs 12/02/23 06/29/25 Rx Allergies Allergy/AdvReac Type Severity Reaction Status Date / Time No Known Allergies Allergy Unknown Verified 03/07/25 09:47 Vital Signs Vital Signs - 24 hr 06/29/25 15:52 06/29/25 16:05 06/29/25 16:11 Temperature Pulse Rate 62 64 Respiratory Rate 20 Blood Pressure 136/60 Pulse Oximetry 97 100 Oxygen Delivery Room Air Room Air 06/29/25 16:21 06/29/25 16:30 06/29/25 16:31 Temperature Pulse Rate 64 85 72 Respiratory Rate 17 16 13 Blood Pressure 130/58 L Pulse Oximetry 100 99 99 Oxygen Delivery 06/29/25 16:32 06/29/25 16:51 06/29/25 17:00 Temperature Pulse Rate 80 110 H 62 Respiratory Rate 17 12 19 Blood Pressure Pulse Oximetry 98 99 96 Oxygen Delivery 06/29/25 17:01 06/29/25 17:15 06/29/25 17:16 Temperature Pulse Rate 63 69 61 Respiratory Rate 18 17 19 Blood Pressure 119/56 L 139/63 Pulse Oximetry 97 96 97 Oxygen Delivery 06/29/25 17:44 06/29/25 19:30 06/29/25 20:55 Temperature 98.1 F 98.2 F Pulse Rate 76 79 87 Respiratory Rate 16 18 18 Blood Pressure 143/60 H 137/88 Pulse Oximetry 96 97 98 Oxygen Delivery Exam Const: General: cooperative, comfortable, no acute distress, well developed, alert, awake, Physically active, average body habitus and well nourished Nutritional Appearance: average body habitus and well nourished Orientation/consciousness: oriented to person and oriented to place Other: Poor historian and very hard of hearing bilateral ears HENMT: Head: normal to inspection, No palpable skull fracture present, normocephalic, atraumatic and abrasion Eyes: General: appearance normal, both eyes and all related structures Alignment and Position: alignment normal Periorbital: periorbital findings normal Eyelids: eyelids normal Pupils: Equal, round and reactive pupils present and Pupil accommodation reflex normal EOM: EOMs intact bilaterally Neck: Neck: normal visual inspection, full ROM and no lymphadenopathy Chest: Chest palpation & inspection: normal inspection of the chest Resp: Effort & Inspection: normal respiratory effort Auscultation: clear to auscultation bilaterally Cardio: Palpation: normal PMI Rate: regular rate Rhythm: regular rhythm Heart sounds: S1 normal heart sound present and S2 normal heart sound present Peripheral pulses: Peripheral pulses 2+ throughout Other: EKG was read as sinus rhythm left bundle-branch block heart rate 68 GI: Inspection: normal to inspection Percussion: Yes normal to percussion Auscultation: normal bowel sounds Rectal Exam: deferred Skin: General skin exam: normal color Lesions: no lesions Rashes: no rashes Trauma: no lacerations or abrasions Wounds: no wounds Hair: normal Nails: normal Neuro: General: oriented to person and oriented to place Cranial nerves: Yes Equal, round and reactive pupils present and Yes hard of hearing Cognition (Neuro): abnormal cognition Speech: normal speech Sensory Exam: normal sensation Other: She is a poor historian Extrem: General: normal to inspection Other: Short-leg posterior OCL intact to right lower extremity Psych: Appearance: grossly normal Mental Status: mental status grossly normal Speech and movement: Normal speech and movement present Affect: normal affect Attitude: cooperative Thought process: Normal thought process present Thought content: Yes Normal thought content present Insight: Fair insight present (Psych) Judgement: Fair judgement present (Psych) H&P: Results Labs Labs: Short CBC 06/29/25 Range/Units 16:22 WBC 10.5 H (4.5-10.0) K/mm3 Hgb 13.1 (12.0-15.0) g/dL Hct 38.8 (37.0-47.0) % Plt Count 289 (150-375) k/mm3 BMP 06/29/25 16:22 Sodium 136 L Potassium 4.2 Chloride 102 Carbon Dioxide 24 BUN 12 D Creatinine 0.85 Glucose 125 H Calcium 9.4 Cardiac Enzymes 06/29/25 Range/Units 16:22 Troponin I < 0.012 (0.000-0.034) ng/mL Liver Function 06/29/25 Range/Units 16:22 Total Bilirubin 0.9 (0.2-1.3) mg/dL AST 25 (14-36) U/L ALT 23 (6-35) U/L Alkaline Phosphatase 59 (38-126) U/L Albumin 4.0 (3.5-5.1) g/dL ECG Prior ECG tracings: available for review Interpretation: Impressions EKG shows left bundle branch block sinus rhythm which is comparable to her EKG in [address] scan - chest: Radiologist's impression: Impressions Chest X-Ray 06/29/25 16:52 IMPRESSION: 1: NO ACUTE CARDIOPULMONARY DISEASE. Chest CTA 06/29/25 17:40 IMPRESSION: 1. Negative for pulmonary embolism. Incidental findings detailed above Ankle X-Ray 06/29/25 19:50 Impression: 1: Oblique nondisplaced distal fibular fracture with adjacent soft tissue swelling. Assessment and Plan Assessment and plan (1) Syncope and collapse: Code(s): R55 - Syncope and collapse Status: Acute Assessment and Plan: -continue telemetry monitoring -monitor for any arrhythmias. Her current EKG was read as sinus rhythm with a left bundle branch block this is comparable to her EKG in 2022. -she currently has no complaints of chest pain. Continue to trend troponins at this point. -check orthostatic blood pressures daily -continue to monitor daily CBCs and BMPs -check her UA for possible UTI -CTA was read as negative for pulmonary embolism. -chest x-ray shows no acute cardiopulmonary disease. -the patient stated that she has a history of dizziness. We can do p.r.n. meclizine -continue with IV fluids for now and to be cautious about fluid overload. Her rate has been decreased to 75 mL/hr. (2) Chest pain: Code(s): R07.9 - Chest pain, unspecified Status: Acute Assessment and Plan: -continue on telemetry monitoring -continue to trend cardiac enzymes. -the patient is on aspirin. -may consider Cardiology consult (3) Essential (primary) hypertension: Code(s): I10 - Essential (primary) hypertension Status: Acute Assessment and Plan: -continue with Norvasc -daily orthostatics have been ordered (4) Left bundle branch block: Code(s): I44.7 - Left bundle-branch block, unspecified Status: Acute Assessment and Plan: -this is comparable to her EKG from September of 2023 (5) Right fibular fracture: Code(s): S82.401A - Unspecified fracture of shaft of right fibula, initial encounter for closed fracture Status: Acute Assessment and Plan: -she has a short-leg posterior OCL placed in the emergency room -consult orthopedic doctor while in the hospital or outpatient. (6) Thyroid nodule: Code(s): E04.1 - Nontoxic single thyroid nodule Status: Acute Assessment and Plan: -ultrasound of the thyroid has been ordered -check thyroid levels. Plan She has a history of having a lumpectomy patient is unsure if she is still on anastrozole. Quality If No VTE Prophylaxis Answer both mechanical and pharmacologic: Reason no mechanical VTE proph: medical contraindication Reason no pharmacologic proph: medical contraindication The patient has a history of falls and syncope therefore she would be high risk for anticoagulation.
[2025-06-29 22:03] LABS: Troponin I < 0.012 ng/mL (0.000-0.034)
[2025-06-30] VITALS (16 sets, daily range): BP systolic 135–158; BP diastolic 54–77; PULSE 76–99; RESP 16–20; TEMP 36.8–37.8; O2SAT 94–100
--- NOTE | 2025-06-30 | ECHO_ITS ---
Patient Info Name: Maria Antonia Weiner Age: 89 years : 1935 Gender: Female Ht: 65 in Wt: 148 lbs BSA: 1.76 m2 HR: 72 bpm BP: 142 / 65 mmHg Technical Quality: Good Exam Date: 06/30/2025 9:31 AM Patient Status: I Admit Date: 06/30/2025 Exam Type: CA echo dop color flow w con Complete two-dimensional, color flow and Doppler transthoracic echocardiogram is performed with contrast to opacify the left ventricle and to improve the deliniation of the left ventricle endocardial borders. Staff Referring Physician: Hortensia Cisneros Secretary Bookkeeper: Anette Garnica Attending Provider: Karen Lim MD Contrast/Agitated Saline Contrast/Ag. Saline: Definity Amount: 2.00 ml Administered By: Anette Garnica Summary 1. Technically difficult study with suboptimal acoustic views. 2. There is normal biventricular size and systolic function. 3. In the available views, there does not appear to be any significant valvular abnormalities. Left Ventricle The left ventricle is normal in size and systolic function. The left ventricular ejection fraction is visually estimated to be 50-55%. Right Ventricle The right ventricle is normal in size and systolic function. Left Atria The left atrium is normal size. Right Atria The right atrium is normal size. Atrial Septum The atrial septum is not well visualized. Aortic Valve The aortic valve is probably trileaflet and opens well. There is no aortic regurgitation. Pulmonic Valve The pulmonic valve is not well visualized. Mitral Valve The mitral valve is grossly normal. There is no mitral regurgitation. Tricuspid Valve The tricuspid valve is grossly normal. Pericardium/Pleural Pericardium is normal in appearance with no evidence for significant pericardial effusion. Inferior Vena Cava Normal inferior vena cava with >50% collapse upon inspiration consistent with normal right atrial pressure, 3 mmHg. Aorta The aortic root at the level of sinus of Valsalva measures 3.1 cm in diameter. Left Ventricular Outflow Tract Name Value Normal LVOT 2D LVOT Diameter 2.0 cm LVOT Doppler LVOT Peak Velocity 118 cm/s LVOT Peak Gradient 6 mmHg LVOT Mean Gradient 3 mmHg LVOT VTI 27 cm LVOT Stroke Volume 84 ml LVOT CO 6.1 l/min LVOT CI 3.5 l/min/m2 Pulmonic Valve Name Value Normal RVOT Doppler RVOT Peak Velocity 80 cm/s RVOT Peak Gradient 3 mmHg PV Doppler PV Peak Velocity 97 cm/s PV Peak Gradient 4 mmHg Mitral Valve Name Value Normal MV Diastolic Function MV E Peak Velocity 52 cm/s MV A Peak Velocity 86 cm/s MV E/A 0.6 MV Decel Time (PW) 320 ms MV Annular TDI MV E/e' (Septal) 7.3 MV E/e' (Lateral) 11.4 MV E/e' (Average) 9.3 Tricuspid Valve Name Value Normal Estimated PAP/RSVP RA Pressure 3 mmHg <=5 Aortic Valve Name Value Normal AV Doppler AV Peak Velocity 137 cm/s AV Peak Gradient 8 mmHg AV Area (Cont Eq Foster) 2.7 cm2 AV DI (Foster) 0.86 AV Regurgitation 2D LVOT Area 3.1 cm2 Ventricles Name Value Normal LV Dimensions 2D/MM IVS Diastolic Thickness (2D) 1.0 cm 0.6-1.0 LVID Diastole (2D) 3.9 cm 3.8-5.2 LVIW Diastolic Thickness (2D) 0.9 cm 0.6-0.9 LVID Systole (2D) 2.7 cm 2.2-3.5 LVOT Diameter 2.0 cm LV Mass (2D Cubed) 109.50 g 67.00-162.00 LV Mass Index (2D Cubed) 62 g/m2 43-95 Relative Wall Thickness (2D) 0.44 <=0.42 LV Fractional Shortening/Ejection Fraction 2D/MM LV Fractional Shortening (2D) 31 % 27-45 LV EF (2D Teichholz) 60 % LV Diastolic Volume (4C MOD) 98 ml LV EF (4C MOD) 59 % LV Diastolic Volume (2C MOD) 87 ml LV EF (2C MOD) 72 % LV Diastolic Volume (BP MOD) 92 ml 46-106 LV Diastolic Volume Index (BP MOD) 52 ml/m2 29-61 LV Systolic Volume (BP MOD) 32 ml 14-42 LV Systolic Volume Index (BP MOD) 18 ml/m2 8-24 LV EF (BP MOD) 66 % 54-74 LV Diastolic Length (4C) 7.4 cm LV Systolic Length (4C) 6.6 cm LV Stroke Volume (4C MOD) 58 ml Atria Name Value Normal LA Dimensions LA Volume (4C A-L) 54 ml LA Volume (BP A-L) 49 ml RA Dimensions RA Systolic Major [place] Length (4C) 5.0 cm 2.2-2.8 RA Area (4C) 11.0 cm2 <=18.0 Report Signatures
[2025-06-30 01:00] LABS: Troponin I < 0.012 ng/mL (0.000-0.034)
[2025-06-30 01:34] LABS: Add Urine Microscopic? YES; Appearance Urine Cloudy (Clear); Glucose Urine UA Negative (Negative); Leukocyte Esterase Ur 2+ LEU/UL (Negative); Nitrate Urine Negative (Negative); Non Pathogenic Casts 0-2; Specific Grav Ur > 1.045 (1.001-1.035)
[2025-06-30] MEDS: MORPHINE SULFATE (*CRX) 2 MG/ML INJ IV PUSH ×2 (04:23→10:07)
[2025-06-30] MEDS: SODIUM CHLORIDE 0.9% IV 1,000 ML 75 ML IV CONT ×2 (04:23→12:25)
[2025-06-30 04:34] LABS: Hematocrit 36.7 % (37.0-47.0); Hemoglobin 12.2 g/dL (12.0-15.0); Immature Granulocyte Percent A 0.4 % (0-0.5); Lymphocytes Absolute Auto 1.80 K/mm3 (0.9-3.2); Mean Corpuscular HGB Conc 33.2 g/dl (32-36); Mean Corpuscular Hemoglobin 28.7 pg (26-34); Mean Corpuscular Volume 86.4 fl (80-100); Nucleated Red Blood Cells Absolute Auto 0.000 K/mm3 (0.0-0.012); Nucleated Red Blood Cells Perc 0.0 % (0.0-0.2); Platelet Count Result 247 k/mm3 (150-375); Red Blood Count 4.25 M/mm3 (4.2-5.4); White Blood Count 12.3 K/mm3 (4.5-10.0)
[2025-06-30 04:54] LABS: Anion Gap 7 mmol/L (4-12); Blood Urea Nitrogen 12 mg/dL (7-17); Calcium 8.8 mg/dL (8.4-10.2); Carbon Dioxide 22 mmol/L (22-30); Chloride 107 mmol/L (98-107); Estimated CRCL calculation 38 ml/min; Estimated Glomerular Filt Rate > 60; Glucose 120 mg/dL (65-110); Potassium 3.8 mmol/L (3.4-5.0); Sodium 136 mmol/L (137-145)
[2025-06-30 05:11] LABS: Thyroid Stimulating Hormone Reflex 1.240 uIU/mL (0.465-4.68)
--- NOTE | 2025-06-30 08:36 | PM.IMPN ---
Progress Note: A&P Assessment and Plan (1) Essential (primary) hypertension: Code(s): I10 - Essential (primary) hypertension Status: Acute (2) Left bundle branch block: Code(s): I44.7 - Left bundle-branch block, unspecified Status: Acute (3) Thyroid nodule: Code(s): E04.1 - Nontoxic single thyroid nodule Status: Acute (4) Right fibular fracture: Code(s): S82.401A - Unspecified fracture of shaft of right fibula, initial encounter for closed fracture Status: Acute (5) Syncope and collapse: Code(s): R55 - Syncope and collapse Status: Acute (6) Leukocytosis: Code(s): D72.829 - Elevated white blood cell count, unspecified Status: Acute Plan 89-year-old female with PMH hypertension, breast cancer status post lumpectomy on anastrozole, progressive memory loss, constipation on Metamucil, history of UTI, history of dizziness and palpitations, left bundle branch block, GERD, hypercholesterolemia, hyperglycemia, cardiac in 2000 with severe hypokalemia and V-tach. She presents to [facility] ER on 06/29/2025 as she was at home about her usual when she was going into her back door from the porch and she felt dizzy and she had syncope. She states her daughter said she hit her head. Patient did not notice any seizure activity, she says she was fine afterwards. She has not felt ill recently however she reports chronic intermittent chest pain, dizziness, vertigo, nausea in the morning, shortness of breath. In the ER she was hemodynamically stable, her WBC 12.3 K, hemoglobin 12.2, sodium mildly low at 136, BUN 12, serum creatinine 0.85, glucose 125, troponin negative x3, EKG demonstrating normal sinus rhythm with the old left bundle branch block, urinalysis cloudy with specific gravity greater than 1.05, positive leukocyte esterase and 11-20 wbc's, no bacteria. A CTA chest PE protocol performed did not show PE, no acute cardiopulmonary disease. A two-view right ankle x-ray demonstrated oblique nondisplaced distal fibular fracture with adjacent soft tissue swelling. On the telemetry unit patient denies any current symptoms, denies feeling ill recently, fever, chest pain, shortness of breath, nausea vomiting diarrhea, denies sores, denies ear pain, denies palpitations. I review previous records and it appears she last saw Dr. Cordero cardiology in 07/2024. Reportedly she had V-tach arrest in 2000 while she was on a cruise. Cardiac catheterization at that time showed no significant disease. She has had chronic intermittent episodes of left chest pressure that happens once a week with no aggravating or relieving factors. Does not know if the omeprazole helps or not. Apparently she did not want to undergo invasive testing anymore. I spoke with her son Dr. Weiner and we discussed the patient's evaluation and ongoing plan of care on 06/30/2025. Shared decision making held. ----- Chronic dizziness, palpitations. syncope on 06/29/2025: Consult cardiology as this patient has ongoing dizziness and palpitations. She may benefit from Holter monitor on discharge. At this time she feels fine without any ACS evident. Will check a surface echocardiogram and carotid ultrasounds. Check orthostatics. Continue telemetry, currently showing normal sinus rhythm with occasional PVCs. She reports a history of vertigo but does not believe she had a spinning sensation when she fell this time. She reports she hit her head, no CT head has been formed, I have ordered that. History of left bundle branch block. Continue [employer] aspirin. Leukocytosis, fever: 1 time fever of 100.1? F on 06/30/2025 at 4:[address] of chest did not demonstrate any abnormalities. Comprehensive review of systems not reveal etiology of possible infection. Discussed about risk versus benefit and use of antibiotics with the patient, we will check blood cultures, follow-up on urine cultures. Check quad viral screen. Start ceftriaxone 1 g Q 24 hours IV empirically. Continue to follow. If she has a true UTI could be the cause of her dizziness and syncope. Right fibular fracture: Bed rest, IV morphine p.r.n., consult Orthopedic surgery. Calcified thyroid nodule: Pending thyroid ultrasound Hyperglycemia: Noted in the outpatient setting, Accu-Cheks q.6 hours. Cannot find a hemoglobin A1c, will check that. History of vertigo: Continue meclizine p.r.n.. History of GERD: Continue [employer] PPI. History of hypokalemia: Continue [employer] KCL tab. History of constipation: Has a bowel movement about every 2 days and uses Metamucil. Chronic hypertension: Restart [employer] amlodipine and olmesartan. Continue to monitor blood pressures. Hypercholesterolemia: Simvastatin was previously placed on hold in 03/12 when she was placed on antibiotics for UTI. Restart simvastatin soon. She reports she has had progressive memory loss, cannot remember the day or month. Continue to monitor this. ----- Patient wishes to be DNR. She lives at home with her daughter and uses a cane at baseline for ambulation. Continue [employer] PPI SCDs. NPO Saline lock IV Restart [employer] Metamucil Subjective Date/time seen: 06/30/25 08:36 Interval history: No major acute overnight events. Patient denies any pain in the she is moving her right lower extremity. She denies nausea, vomiting, shortness of breath, chest pain, fever. She feels at her baseline. She tells me her son is Dr. Weiner and that she has had aggressive memory loss and cannot remember the day or month but she knows it is summer. Review of Systems Review of Systems: All systems reviewed & are unremarkable except as noted in HPI and below (Subjective) Exam Const: General: comfortable and no acute distress HENMT: Mouth: Yes moist mucous membranes Eyes: Pupils: Equal, round and reactive pupils present Neck: Neck: supple Resp: Effort & Inspection: normal respiratory effort Auscultation: clear to auscultation bilaterally Cardio: Rate: regular rate Rhythm: regular rhythm Heart sounds: no gallops, no murmurs and no rubs GI: Inspection: non-distended GI Palp: Yes Soft to palpation and No Tenderness to palpation present (GI) Neuro: Motor exam (neuro): 5/5 motor strength present throughout Other: Right lower extremity range of motion limited by pain. Neurovascular exam intact Extrem: General: no edema Psych: Mental Status: mental status grossly normal Objective Data Vital Signs Vital Signs: Vital Signs - 24 hr 06/29/25 15:52 06/29/25 16:05 06/29/25 16:11 Temperature Pulse Rate 62 64 Respiratory Rate 20 Blood Pressure 136/60 Pulse Oximetry 97 100 Oxygen Delivery Room Air Room Air 06/29/25 16:21 06/29/25 16:30 06/29/25 16:31 Temperature Pulse Rate 64 85 72 Respiratory Rate 17 16 13 Blood Pressure 130/58 L Pulse Oximetry 100 99 99 Oxygen Delivery 06/29/25 16:32 06/29/25 16:51 06/29/25 17:00 Temperature Pulse Rate 80 110 H 62 Respiratory Rate 17 12 19 Blood Pressure Pulse Oximetry 98 99 96 Oxygen Delivery 06/29/25 17:01 06/29/25 17:15 06/29/25 17:16 Temperature Pulse Rate 63 69 61 Respiratory Rate 18 17 19 Blood Pressure 119/56 L 139/63 Pulse Oximetry 97 96 97 Oxygen Delivery 06/29/25 17:44 06/29/25 19:30 06/29/25 20:55 Temperature 98.1 F 98.2 F Pulse Rate 76 79 87 Respiratory Rate 16 18 18 Blood Pressure 143/60 H 137/88 Pulse Oximetry 96 97 98 Oxygen Delivery 06/29/25 21:15 06/29/25 21:35 06/29/25 22:00 Temperature 99.2 F Pulse Rate 80 87 77 Respiratory Rate 16 18 Blood Pressure 146/54 H Pulse Oximetry 99 98 Oxygen Delivery Room Air 06/29/25 23:37 06/29/25 23:42 06/30/25 00:00 Temperature 98.7 F Pulse Rate 77 78 83 Respiratory Rate 18 18 Blood Pressure 121/58 L Pulse Oximetry 98 100 Oxygen Delivery Room Air 06/30/25 02:00 06/30/25 03:35 06/30/25 04:00 Temperature Pulse Rate 86 80 78 Respiratory Rate 18 Blood Pressure Pulse Oximetry 100 Oxygen Delivery Room Air 06/30/25 04:00 06/30/25 06:00 06/30/25 07:51 Temperature 100.1 F H 98.2 F Pulse Rate 83 89 81 Respiratory Rate 16 16 Blood Pressure 145/55 H 142/65 H Pulse Oximetry 97 96 Oxygen Delivery Intake/Output Intake/Output: Intake & Output 06/27/25 06/28/25 06/29/25 06/30/25 23:59 23:59 23:59 23:59 Intake Total 622.9 517.5 Output Total 450 Balance 622.9 67.5 Meds/Results Medications: Active Medications Generic Name Dose Route Start Last Admin Trade Name Freq PRN Reason Stop Dose Admin Acetaminophen 650 mg 06/30/25 03:43 Acetaminophen 325 Mg Tablet PO Q6H PRN Mild Pain (1-3) or Fever Hydrocodone Bitart/Acetaminophen 1 tab 06/30/25 03:44 Hydrocodone/Acetaminophen (*Crx) 5-325 Mg Tablet PO Q4H PRN Pain Rated 4-6 Amlodipine Besylate 5 mg 06/30/25 09:00 Amlodipine Besylate 5 Mg Tablet PO DAILY [facility] Anastrozole 1 mg 06/30/25 09:00 Anastrozole (*Chemo) 1 Mg Tablet PO DAILY [facility] Aspirin 81 mg 06/30/25 09:00 Aspirin 81 Mg Chewable Tablet PO DAILY [facility] Sodium Chloride 1,000 mls @ 75 mls/hr 06/29/25 18:10 06/30/25 04:23 Normal Saline Iv IV CONT 75 mls/hr .[id number] [facility] Administration Ceftriaxone Sodium 1 gm/ 50 mls @ 100 mls/hr 06/30/25 08:35 Sodium Chloride IVPB Q24H [facility] Meclizine HCl 6.25 mg 06/29/25 21:46 Meclizine Hcl 6.25 Mg Tablet PO TID PRN Dizziness Morphine Sulfate 2 mg 06/30/25 03:44 06/30/25 04:23 Morphine Sulfate (*Crx) 2 Mg/Ml Inj IV PUSH 2 mg Q4H PRN Administration Pain Rated 7-10 Olmesartan 40 mg 06/30/25 09:00 Olmesartan Medoxomil 20 Mg Tablet PO DAILY [facility] Pantoprazole Sodium 40 mg 06/30/25 09:00 Pantoprazole 40 Mg Tablet PO QAM [facility] Perflutren Lipid Microsphere 0 ml 06/30/25 08:32 Perflutren Lipid Microspheres 1.5 Ml Vial Diluted To 10 Ml Total Volume IV PUSH 07/03/25 08:32 ONCE PRN adequate visualization Protocol Potassium Chloride 20 meq 06/30/25 09:00 Potassium Chloride 20 Meq Er Tablet PO DAILY [facility] Trazodone HCl 50 mg 06/29/25 21:48 Trazodone Hcl 50 Mg Tablet PO QHS PRN Insomnia Radiology Results: ITS Impressions Chest X-Ray 06/29/25 16:52 IMPRESSION: 1: NO ACUTE CARDIOPULMONARY DISEASE. Chest CTA 06/29/25 17:40 IMPRESSION: 1. Negative for pulmonary embolism. Incidental findings detailed above Ankle X-Ray 06/29/25 19:50 Impression: 1: Oblique nondisplaced distal fibular fracture with adjacent soft tissue swelling. Labs Labs: Laboratory Results - last 24 hr 06/29/25 06/29/25 06/30/25 16:22 21:34 00:32 WBC 10.5 H RBC 4.53 Hgb 13.1 Hct 38.8 MCV 85.7 MCH 28.9 MCHC 33.8 RDW 14.0 Plt Count 289 MPV 10.2 Immature Gran % (Auto) 0.5 Neut % (Auto) 76.3 H Lymph % (Auto) 14.2 L [place] % (Auto) 7.7 Eos % (Auto) 0.8 Baso % (Auto) 0.5 Lymph # (Auto) 1.49 [place] # (Auto) 0.8 H Eos # (Auto) 0.1 Baso # (Auto) 0.1 Abs Immat Gran (auto) 0.05 H Absolute Neuts (auto) 8.0 H Absolute Nucleated RBC 0.000 Nucleated RBC % 0.0 Sodium 136 L Potassium 4.2 Chloride 102 Carbon Dioxide 24 Anion Gap 10 BUN 12 D Creatinine 0.85 Estim Creat Clear Calc 35 Estimated GFR > 60 Glucose 125 H Calcium 9.4 Total Bilirubin 0.9 AST 25 ALT 23 Alkaline Phosphatase 59 Troponin I < 0.012 < 0.012 < 0.012 Total Protein 7.3 Albumin 4.0 TSH (Reflex) Urine Color Urine Appearance Urine pH Ur Specific [place] Urine Protein Urine Glucose (UA) Urine Ketones Ur Blood (Man) Urine Nitrate Urine Bilirubin Urine Urobilinogen Leukocyte Esterase Rfl Urine RBC Urine WBC Ur Squamous Epith Cells Urine Bacteria Urine Casts 06/30/25 06/30/25 01:23 03:56 WBC 12.3 H RBC 4.25 Hgb 12.2 Hct 36.7 L MCV 86.4 MCH 28.7 MCHC 33.2 RDW 14.1 Plt Count 247 MPV 10.7 H Immature Gran % (Auto) 0.4 Neut % (Auto) 72.2 Lymph % (Auto) 14.6 L [place] % (Auto) 12.3 H Eos % (Auto) 0.2 Baso % (Auto) 0.3 Lymph # (Auto) 1.80 [place] # (Auto) 1.5 H Eos # (Auto) 0.0 Baso # (Auto) 0.0 Abs Immat Gran (auto) 0.05 H Absolute Neuts (auto) 8.9 H Absolute Nucleated RBC 0.000 Nucleated RBC % 0.0 Sodium 136 L Potassium 3.8 Chloride 107 Carbon Dioxide 22 Anion Gap 7 BUN 12 Creatinine 0.78 Estim Creat Clear Calc 38 Estimated GFR > 60 Glucose 120 H Calcium 8.8 Total Bilirubin AST ALT Alkaline Phosphatase Troponin I Total Protein Albumin TSH (Reflex) 1.240 Urine Color Yellow Urine Appearance Cloudy H Urine pH 7.5 Ur Specific [place] > 1.045 H Urine Protein Negative Urine Glucose (UA) Negative Urine Ketones Negative Ur Blood (Man) Negative Urine Nitrate Negative Urine Bilirubin Negative Urine Urobilinogen 0.2 Leukocyte Esterase Rfl 2+ H Urine RBC 0-2 Urine WBC 11-20 H Ur Squamous Epith Cells None seen Urine Bacteria None seen Urine Casts 0-2
[2025-06-30] MEDS: HYDROcodone/acetaminophen (*CRX) 5-325 MG TABLET 1 TAB PO ×4 (08:37→23:20)
[2025-06-30] MEDS: POTASSIUM CHLORIDE 20 MEQ ER TABLET PO (08:37)
[2025-06-30] MEDS: OLMESARTAN MEDOXOMIL 20 MG TABLET 40 MG PO (08:38)
[2025-06-30] MEDS: ANASTROZOLE (*CHEMO) 1 MG TABLET PO (08:38)
[2025-06-30] MEDS: ASPIRIN 81 MG CHEWABLE TABLET PO (08:38)
[2025-06-30] MEDS: PANTOPRAZOLE 40 MG TABLET PO (08:38)
[2025-06-30] MEDS: PSYLLIUM POWDER PACKET 1 PACKET PO (10:05)
[2025-06-30] MEDS: cefTRIAXone 1 GM in SODIUM CHLORIDE 0.9% IV 50 ML 100 ML IVPB (10:05)
[2025-06-30] MEDS: PERFLUTREN LIPID MICROSPHERES 1.5 ML VIAL DILUTED TO 10 ML TOTAL VOLUME IV PUSH (10:17)
--- NOTE | 2025-06-30 10:17 | IVDEFINITY ---
Prior to administration of IV Definity the patient was educated on the risks and benefits of the imaging enhancing agent including potential adverse side effects. The patient verbalized understanding. Allergies were verified. No exclusion criteria were identified and at least one of the following inclusion criteria were met: 1) physician request, 2) patient technically difficult to image (per the [place] [employer] Echocardi[employer] guidelines of two or more segments not discernable within the apical view), or 3) questionable left ventricular function. ?
--- NOTE | 2025-06-30 10:53 | PM.CNCAR ---
Assessment and Plan Assessment and plan (1) Syncope: Code(s): R55 - Syncope and collapse Status: Acute Assessment and Plan: Etiology unclear at this point, workup negative thus far. No bradycardia, high grade block, or pauses on telemetry. Check orthostatic vital signs when able (currently not weight bearing on right leg because of fibula fracture). Can discharge with order for 30 day tele monitor. Echo is pending. (2) Left bundle branch block: Code(s): I44.7 - Left bundle-branch block, unspecified Status: Acute Assessment and Plan: Chronic. (3) Essential (primary) hypertension: Code(s): I10 - Essential (primary) hypertension Status: Acute Assessment and Plan: At goal History of Present Illness History of Present Illness Consult date/time: 06/30/25 10:53 Requesting physician: Hortensia Cisneros MD Consult reason: Other (syncope, palpitations) Reason For Visit: syncopy Narrative: Maria Antonia Weiner is an 89 year old female with hypertension, hyperlipidemia, history of cardiac arrest in 2000 (VT in the setting of hypokalemia, reportedly no obstructive CAD on C performed at the time), and chronic intermittent chest pain. This is a patient who comes to [facility] with a chief complaint of syncope. Patient reports experiencing intermittent dizziness over the past couple of weeks. Yesterday she was sitting outside on the deck and began to feel dizzy, so she decided to get up and move inside where it was cooler. After she stood up and began to walk she lost consciousness and fell. This is her 1st occurrence of syncope. She denies having any chest pain or palpitations but does endorse nausea and shortness of breath. She has not had any dizziness since her admission to the hospital. Review of Systems Review of Systems: All systems reviewed & are unremarkable except as noted in HPI and below PMFSH Past Medical History Medical History History of ventricular tachycardia 2000 Pure hypercholesterolemia, unspecified Gastro-esophageal reflux disease without esophagitis Essential (primary) hypertension Dizziness Surgical History Surgical History Cataract extraction status of right eye History of detached retina repair History of lumpectomy left breast wire localized lumpectomy with left axillary sentinel lymph node biopsy 12/05/22 Family History Family History Father Acute myocardial infarction Heart disease Hypertension Cerebrovascular accident Sibling Diabetes mellitus Heart disease Hypertension Sibling Heart disease Hypertension Daughter Kidney disease Daughter at age 10 from kidney failure. 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 Code status do not resuscitate Smoking status: Never smoker Second hand tobacco smoke exposure: No Alcohol intake: never Substance use: never Substance use type: does not use Do You Feel Safe in your Home?: Yes Lack of Transportation: No Lack of Food: Never True Current Housing: I Have Housing Concerned About Future Housing: No Difficulty Paying Gas/Electric Bills: No Difficulty Paying for Meds: No Currently Unemployed: No Education: High School Diploma/GED Difficulty w/ Childcare or Family Care: No Living arrangements: with family Additional living arrangements comments: LIVES WITH ANTELMO PENNY Occupation/Education: retired Gender identity (if verbalized by the patient): Female Sexual Orientation (if Verbalized by the Patient): Straight or Heterosexual Spiritual care concerns: No Agree to blood products: Yes Meds Home Medications and Allergies Home Medications ?Medication ?Instructions ?Recorded ?Confirmed ?Type omeprazole 20 mg capsule,delayed 20 mg PO DAILY 10/22/22 06/29/25 History release potassium chloride 20 mEq 20 meq PO DAILY 12/03/22 06/29/25 History tablet,extended release(part/cryst) aspirin 81 mg capsule 81 mg PO DAILY 03/05/23 06/29/25 History olmesartan 40 mg tablet 40 mg PO DAILY #90 tabs 08/26/23 06/29/25 Rx anastrozole 1 mg tablet 1 mg PO DAILY 10/18/23 06/29/25 History trazodone 50 mg tablet 50 mg PO QHS PRN Insomnia 10/18/23 06/29/25 History amlodipine 5 mg tablet 5 mg PO DAILY #90 tabs 12/02/23 06/29/25 Rx Allergies Allergy/AdvReac Type Severity Reaction Status Date / Time No Known Allergies Allergy Unknown Verified 03/07/25 09:47 Vital Signs Vital Signs - 24 hr 06/29/25 15:52 06/29/25 16:05 06/29/25 16:11 Temperature Pulse Rate 62 64 Respiratory Rate 20 Blood Pressure 136/60 Pulse Oximetry 97 100 Oxygen Delivery Room Air Room Air 06/29/25 16:21 06/29/25 16:30 06/29/25 16:31 Temperature Pulse Rate 64 85 72 Respiratory Rate 17 16 13 Blood Pressure 130/58 L Pulse Oximetry 100 99 99 Oxygen Delivery 06/29/25 16:32 06/29/25 16:51 06/29/25 17:00 Temperature Pulse Rate 80 110 H 62 Respiratory Rate 17 12 19 Blood Pressure Pulse Oximetry 98 99 96 Oxygen Delivery 06/29/25 17:01 06/29/25 17:15 06/29/25 17:16 Temperature Pulse Rate 63 69 61 Respiratory Rate 18 17 19 Blood Pressure 119/56 L 139/63 Pulse Oximetry 97 96 97 Oxygen Delivery 06/29/25 17:44 06/29/25 19:30 06/29/25 20:55 Temperature 36.7 C 36.8 C Pulse Rate 76 79 87 Respiratory Rate 16 18 18 Blood Pressure 143/60 H 137/88 Pulse Oximetry 96 97 98 Oxygen Delivery 06/29/25 21:15 06/29/25 21:35 06/29/25 22:00 Temperature 37.3 C Pulse Rate 80 87 77 Respiratory Rate 16 18 Blood Pressure 146/54 H Pulse Oximetry 99 98 Oxygen Delivery Room Air 06/29/25 23:37 06/29/25 23:42 06/30/25 00:00 Temperature 37.1 C Pulse Rate 77 78 83 Respiratory Rate 18 18 Blood Pressure 121/58 L Pulse Oximetry 98 100 Oxygen Delivery Room Air 06/30/25 02:00 06/30/25 03:35 06/30/25 04:00 Temperature Pulse Rate 86 80 78 Respiratory Rate 18 Blood Pressure Pulse Oximetry 100 Oxygen Delivery Room Air 06/30/25 04:00 06/30/25 06:00 06/30/25 07:51 Temperature 37.8 C H 36.8 C Pulse Rate 83 89 81 Respiratory Rate 16 16 Blood Pressure 145/55 H 142/65 H Pulse Oximetry 97 96 Oxygen Delivery 06/30/25 08:00 06/30/25 08:00 06/30/25 10:00 Temperature Pulse Rate 92 86 Respiratory Rate Blood Pressure Pulse Oximetry Oxygen Delivery Room Air Exam Const: General: comfortable, no acute distress, alert and awake Orientation/consciousness: patient oriented x3 HENMT: Head: normal to inspection Eyes: General: appearance normal, both eyes and all related structures Pupils: Equal, round and reactive pupils present Neck: Neck: normal visual inspection, supple and no JVD Carotids: normal carotid upstroke Resp: Effort & Inspection: normal respiratory effort Auscultation: crackles Cardio: Rate: regular rate Rhythm: regular rhythm Heart sounds: S1 normal heart sound present, S2 normal heart sound present and no murmurs GI: Auscultation: normal bowel sounds Skin: General skin exam: normal color Neuro: General: patient oriented x3 Cranial nerves: Yes Equal, round and reactive pupils present Extrem: Other: right lower leg soft cast Psych: Appearance: grossly normal Mental Status: mental status grossly normal Results Labs and Meds 06/30/25 03:56 06/30/25 03:56 Lab results: Cardiac Enzymes 06/29/25 06/29/25 06/30/25 Range/Units 16:22 21:34 00:32 AST 25 (14-36) U/L Troponin I < 0.012 < 0.012 < 0.012 (0.000-0.034) ng/mL CBC 06/29/25 06/30/25 Range/Units 16:22 03:56 WBC 10.5 H 12.3 H (4.5-10.0) K/mm3 RBC 4.53 4.25 (4.2-5.4) M/mm3 Hgb 13.1 12.2 (12.0-15.0) g/dL Hct 38.8 36.7 L (37.0-47.0) % Plt Count 289 247 (150-375) k/mm3 Lymph # (Auto) 1.49 1.80 (0.9-3.2) K/mm3 [place] # (Auto) 0.8 H 1.5 H (0.1-0.6) K/mm3 Eos # (Auto) 0.1 0.0 (0-0.3) K/mm3 Baso # (Auto) 0.1 0.0 (0.0-0.1) K/mm3 Comprehensive Metabolic Panel 06/29/25 06/30/25 Range/Units 16:22 03:56 Sodium 136 L 136 L (137-145) mmol/L Potassium 4.2 3.8 (3.4-5.0) mmol/L Chloride 102 107 (98-107) mmol/L Carbon Dioxide 24 22 (22-30) mmol/L BUN 12 D 12 (7-17) mg/dL Creatinine 0.85 0.78 (0.7-1.0) mg/dL Glucose 125 H 120 H (65-110) mg/dL Calcium 9.4 8.8 (8.4-10.2) mg/dL AST 25 (14-36) U/L ALT 23 (6-35) U/L Alkaline Phosphatase 59 (38-126) U/L Total Protein 7.3 (6.3-8.2) g/dL Albumin 4.0 (3.5-5.1) g/dL Intake and Output 06/29/25 06/30/25 06/30/25 23:59 07:59 15:59 Intake Total 622.9 517.5 Output Total 450 Balance 622.9 67.5 Intake: IV 622.9 367.5 Sodium Chloride 0.9% IV 1,000 622.9 367.5 ml @ 75 mls/hr IV CONT .[id number] [facility] Rx#:[id number] Oral 150 Output: Urine 450 Patient Weight 06/30/25 23:59 Weight 67.5 kg
--- NOTE | 2025-06-30 11:58 | PC.NURSE ---
This patient, Maria Antonia Weiner, was received from IMU on 06/30/25 at 1158. Patient/family oriented to unit policies and routines
[2025-06-30 12:44] LABS: Influenza A QL RT-PCR Negative (Negative); Influenza B QL RT-PCR Negative (Negative); RSV RNA, RT-PCR Negative (Negative); SARS-CoV-2 RNA PCR Negative (Negative)
--- NOTE | 2025-06-30 15:15 | PC.NURSE ---
Belt Dresser spoke with Dr. Weiner patients son regarding general update and regards to D/C notified provider ortho has not seen patient yet and Dr. Lemons is consulting provider. Dr. Weiner reports Dr. Barron is suppose to see patient and he will call Dr. Barron and let him know to come see patient this evening.
--- NOTE | 2025-06-30 15:35 | PC.NURSE ---
Dr. Barron called mortgage loan underwriter asked if the ortho consult was what was keeping patient in hospital, Dr. Wilson reprots okay to discharge from ortho standpoint patient will follow up in office with Dr. Barron on Thursday and will be placed in a boot. Dr. Cisneros was made aware of this conversation. He wished to speak to Dr. Weiner mortgage loan underwriter dialed number and Dr. Cisneros and Dr. Cavazos further discussed patient care and hospital stay/plans. Dr. Ramos gave order to D/C bedrest WBAT, and he will place orders for therapy.
[2025-07-01] VITALS (11 sets, daily range): BP systolic 121–173; BP diastolic 49–101; PULSE 73–126; RESP 16–20; TEMP 36.5–37; O2SAT 90–96
[2025-07-01] MEDS: SODIUM CHLORIDE 0.9% IV 1,000 ML 75 ML IV CONT (02:00)
[2025-07-01] MEDS: HYDROcodone/acetaminophen (*CRX) 5-325 MG TABLET 1 TAB PO ×4 (04:32→21:26)
[2025-07-01 05:06] LABS: Hematocrit 33.2 % (37.0-47.0); Hemoglobin 10.8 g/dL (12.0-15.0); Immature Granulocyte Percent A 0.1 % (0-0.5); Lymphocytes Absolute Auto 2.06 K/mm3 (0.9-3.2); Mean Corpuscular HGB Conc 32.5 g/dl (32-36); Mean Corpuscular Hemoglobin 28.7 pg (26-34); Mean Corpuscular Volume 88.3 fl (80-100); Nucleated Red Blood Cells Absolute Auto 0.000 K/mm3 (0.0-0.012); Nucleated Red Blood Cells Perc 0.0 % (0.0-0.2); Platelet Count Result 191 k/mm3 (150-375); Red Blood Count 3.76 M/mm3 (4.2-5.4); White Blood Count 7.1 K/mm3 (4.5-10.0)
[2025-07-01 05:21] LABS: Anion Gap 6 mmol/L (4-12); Blood Urea Nitrogen 5 mg/dL (7-17); Calcium 8.3 mg/dL (8.4-10.2); Carbon Dioxide 22 mmol/L (22-30); Chloride 107 mmol/L (98-107); Estimated CRCL calculation 48 ml/min; Estimated Glomerular Filt Rate > 60; Glucose 106 mg/dL (65-110); Magnesium 1.9 mg/dL (1.6-2.3); Potassium 3.7 mmol/L (3.4-5.0); Sodium 135 mmol/L (137-145)
[2025-07-01 05:22] LABS: Hemoglobin A1C 6.1 % (<5.7)
[2025-07-01 05:34] LABS: Procalcitonin 0.0 ng/mL
--- NOTE | 2025-07-01 09:19 | PM.CNOR ---
Assessment and Plan Assessment and plan (1) Ankle fracture, right: Code(s): S82.891A - Other fracture of right lower leg, initial encounter for closed fracture Status: Acute Assessment and Plan: 89 yr old female with stable Right ankle fibular fracture. recommend immobilization in posterior splint, follow up with my office 1 week after discharge. partial weight bearing with physical therapy. History of Present Illness HPI Consult date: 07/02/25 Chief complaint: Right Ankle Fracture Narrative: 89 yr old female living at home, syncopal episode, fell with minimially displaced Fibular Fracture of Right Ankle. No hip pain and no other injuries. [facility] Past Medical History Medical History History of ventricular tachycardia 2001 Pure hypercholesterolemia, unspecified Gastro-esophageal reflux disease without esophagitis Essential (primary) hypertension Dizziness Surgical History Surgical History Cataract extraction status of right eye History of detached retina repair History of lumpectomy left breast wire localized lumpectomy with left axillary sentinel lymph node biopsy 12/05/22 Family History Family History Father Acute myocardial infarction Heart disease Hypertension Cerebrovascular accident Sibling Diabetes mellitus Heart disease Hypertension Sibling Heart disease Hypertension Daughter Kidney disease Daughter at age 10 from kidney failure. 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 status do not resuscitate Smoking status: Never smoker Second hand tobacco smoke exposure: No Alcohol intake: never Substance use: never Substance use type: does not use Do You Feel Safe in your Home?: Yes Lack of Transportation: No Lack of Food: Never True Current Housing: I Have Housing Concerned About Future Housing: No Difficulty Paying Gas/Electric Bills: No Difficulty Paying for Meds: No Currently Unemployed: No Education: High School Diploma/GED Difficulty w/ Childcare or Family Care: No Living arrangements: with family Additional living arrangements comments: LIVES WITH ANTELMO PENNY Occupation/Education: retired Gender identity (if verbalized by the patient): Female Sexual Orientation (if Verbalized by the Patient): Straight or Heterosexual Spiritual care concerns: No Agree to blood products: Yes Meds Home Medications and Allergies Home Medications ?Medication ?Instructions ?Recorded ?Confirmed ?Type omeprazole 20 mg capsule,delayed 20 mg PO DAILY 10/22/22 06/29/25 History release potassium chloride 20 mEq 20 meq PO DAILY 12/03/22 06/29/25 History tablet,extended release(part/cryst) aspirin 81 mg capsule 81 mg PO DAILY 03/05/23 06/29/25 History olmesartan 40 mg tablet 40 mg PO DAILY #90 tabs 08/26/23 06/29/25 Rx anastrozole 1 mg tablet 1 mg PO DAILY 10/18/23 06/29/25 History trazodone 50 mg tablet 50 mg PO QHS PRN Insomnia 10/18/23 06/29/25 History amlodipine 5 mg tablet 5 mg PO DAILY #90 tabs 12/02/23 06/29/25 Rx cefdinir 300 mg capsule 300 mg PO Q12H #7 caps 07/01/25 Rx hydrocodone 5 mg-acetaminophen 325 1 tablet PO Q8H PRN pain #5 tabs 07/01/25 Rx mg tablet Allergies Allergy/AdvReac Type Severity Reaction Status Date / Time No Known Allergies Allergy Unknown Verified 03/07/25 09:47 Vital Signs Vital Signs - 24 hr 06/30/25 10:00 06/30/25 12:00 06/30/25 12:00 Temperature 36.9 C Pulse Rate 86 81 88 Respiratory Rate 16 Blood Pressure 137/62 Pulse Oximetry 95 Oxygen Delivery 06/30/25 12:20 06/30/25 16:00 06/30/25 16:00 Temperature Pulse Rate 76 85 Respiratory Rate 16 Blood Pressure 135/54 L Pulse Oximetry 97 94 Oxygen Delivery Room Air 06/30/25 16:50 06/30/25 16:57 06/30/25 17:58 Temperature 36.9 C Pulse Rate 85 99 Respiratory Rate Blood Pressure 135/54 L 158/77 H Pulse Oximetry 94 94 Oxygen Delivery 06/30/25 19:28 06/30/25 20:00 06/30/25 20:00 Temperature 36.8 C Pulse Rate 83 79 Respiratory Rate 20 Blood Pressure 139/55 L Pulse Oximetry 96 Oxygen Delivery Room Air 07/01/25 00:00 07/01/25 00:00 07/01/25 04:00 Temperature 36.9 C 37.0 C Pulse Rate 74 73 80 Respiratory Rate 20 20 Blood Pressure 127/51 L 128/58 L Pulse Oximetry 92 90 Oxygen Delivery 07/01/25 04:00 07/01/25 08:00 07/01/25 08:35 Temperature 36.8 C Pulse Rate 99 80 Respiratory Rate 16 Blood Pressure 125/49 L Pulse Oximetry 94 93 Oxygen Delivery Room Air Exam Narrative: Right lower extremity examination reveals no swelling tenderness or deformity to the knee. No pain in the hip with passive range of motion. NVI. Left lower extremity shows no swelling tenderness or deformity. Const: General: cooperative, healthy appearing, comfortable, no acute distress, well developed, alert and awake Nutritional Appearance: average body habitus Orientation/consciousness: oriented to person, oriented to place and oriented to time Results Labs 07/01/25 04:55 07/01/25 04:55 Labs: Abnormal lab results 06/30/25 06/30/25 07/01/25 Range/Units 12:06 18:11 04:55 RBC 3.76 L (4.2-5.4) M/mm3 Hgb 10.8 L (12.0-15.0) g/dL Hct 33.2 L (37.0-47.0) % [place] % (Auto) 13.4 H (2.6-8.5) % [place] # (Auto) 1.0 H (0.1-0.6) K/mm3 Sodium 135 L (137-145) mmol/L BUN 5 L D (7-17) mg/dL Creatinine 0.61 L (0.7-1.0) mg/dL POC Capillary Glucose 112 H 130 H (65-105) mg/dl Hemoglobin A1c 6.1 H (<5.7) % Calcium 8.3 L (8.4-10.2) mg/dL H & H 06/29/25 06/30/25 07/01/25 Range/Units 16:22 03:56 04:55 Hgb 13.1 12.2 10.8 L (12.0-15.0) g/dL Hct 38.8 36.7 L 33.2 L (37.0-47.0) % All other labs normal.
[2025-07-01] MEDS: cefTRIAXone 1 GM in SODIUM CHLORIDE 0.9% IV 50 ML 100 ML IVPB (09:36)
[2025-07-01] MEDS: PSYLLIUM POWDER PACKET 1 PACKET PO (09:37)
[2025-07-01] MEDS: ANASTROZOLE (*CHEMO) 1 MG TABLET PO (09:37)
[2025-07-01] MEDS: PANTOPRAZOLE 40 MG TABLET PO (09:37)
[2025-07-01] MEDS: POTASSIUM CHLORIDE 20 MEQ ER TABLET PO (09:37)
[2025-07-01] MEDS: ASPIRIN 81 MG CHEWABLE TABLET PO (09:37)
[2025-07-01] MEDS: OLMESARTAN MEDOXOMIL 20 MG TABLET 40 MG PO (09:37)
[2025-07-01] MEDS: MECLIZINE HCL 6.25 MG TABLET PO (09:42)
--- NOTE | 2025-07-01 09:51 | P.DS_ITS ---
DS: Admitting Diagnosis Discharge Date 07/01/2025 Admitting Diagnosis Syncope DS: Discharge Diagnosis Discharge Diagnosis (1) Essential (primary) hypertension: Code(s): I10 - Essential (primary) hypertension Status: Acute (2) Left bundle branch block: Code(s): I44.7 - Left bundle-branch block, unspecified Status: Acute (3) UTI (urinary tract infection): Code(s): N39.0 - Urinary tract infection, site not specified Status: Acute (4) Leukocytosis: Code(s): D72.829 - Elevated white blood cell count, unspecified Status: Acute (5) Ankle fracture, right: Code(s): S82.891A - Other fracture of right lower leg, initial encounter for closed fract ure Status: Acute DS: Summary Hospital Course Hospital Course: 89-year-old female with PMH hypertension, breast cancer status post lumpectomy on anastrozole, progressive memory loss, constipation on Metamucil, history of UTI, history of dizziness and palpitations, left bundle branch block, GERD, hypercholesterolemia, hyperglycemia, cardiac in 2000 with severe hypokalemia and V-tach. She presents to [facility] ER on 06/29/2025 as she was at home about her usual when she was going into her back door from the porch and she felt dizzy and she had syncope. She states her daughter said she hit her head. Patient did not notice any seizure activity, she says she was fine afterwards. She has not felt ill recently however she reports chronic intermittent chest pain, dizziness, vertigo, nausea in the morning, shortness of breath. In the ER she was hemodynamically stable, her WBC 12.3 K, hemoglobin 12.2, sodium mildly low at 136, BUN 12, serum creatinine 0.85, glucose 125, troponin negative x3, EKG demonstrating normal sinus rhythm with the old left bundle branch block, urinalysis cloudy with specific gravity greater than 1.05, positive leukocyte esterase and 11-20 wbc's, no bacteria. A CTA chest PE protocol performed did not show PE, no acute cardiopulmonary disease. A two- view right ankle x-ray demonstrated oblique nondisplaced distal fibular fracture with adjacent soft tissue swelling. On the telemetry unit patient denies any current symptoms, denies feeling ill recently, fever, chest pain, shortness of breath, nausea vomiting diarrhea, denies sores, denies ear pain, denies palpitations. I reviewed previous records and it appears she last saw Dr. Cordero cardiology in 07/2024. Reportedly she had V-tach arrest in 2000 while [place] was on a cruise. Cardiac catheterization at that time showed no significant disease. She has had chronic intermittent episodes of left chest pressure that happens once a week with no aggravating or relieving factors. Does not know if the omeprazole helps or not. Apparently she did not want to undergo invasive testing anymore. I spoke with her son Dr. Weiner and we discussed the patient's evaluation and ongoing plan of care on 06/30/2025. Shared decision making held. ----- Dr. Weiner called to request the patient be discharged without waiting for urine culture results. Requesting that she be discharged on cefdinir. Fortunately she has not had a fever and her leukocytosis has resolved, procalcitonin is also 0. He called Dr. Barron. He also declined for home health, stating the patient's daughter can watch after the patient and they have a wheelchair. Dr. Barron called to report the patient was okay to be discharged from ortho standpoint. Weight-bearing as tolerated She was seen by Cardiology, outpatient Holter monitor has been ordered. Thyroid ultrasound co mplete, follow-up in the outpatient setting. Patient reports persistent pain in the right lower extremity in request Machias on discharge. She is also on trazodone at home p.r.n. for insomnia, advised not to mix these two meds, discussed the risks of the Machias considering her age, advised to take this under supervision at all times. Otherwise, all of her questions and concerns were answered to satisfaction. The patient is discharged in stable condition to home on 07/01/2025. She was DNR during the hospital admission. Time Spent with Patient Time attestation: Total time spent providing and/or coordinating discharge services: Exam Const: General: comfortable and no acute distress HENMT: Mouth: Yes moist mucous membranes Eyes: Pupils: Equal, round and reactive pupils present Neck: Neck: supple Resp: Effort & Inspection: normal respiratory effort Auscultation: clear to auscultation bilaterally Cardio: Rate: regular rate Rhythm: regular rhythm GI: Inspection: non-distended GI Palp: Yes Soft to palpation Extrem: General: no edema DS: Data Data Completed and Pending Labs on day of discharge: Labs from last 24 hours 07/01/25 07/01/25 06/30/25 05:58 04:55 23:49 WBC 7.1 RBC 3.76 L Hgb 10.8 L Hct 33.2 L MCV 88.3 MCH 28.7 MCHC 32.5 RDW 14.3 Plt Count 191 MPV 10.0 Immature Gran % (Auto) 0.1 Neut % (Auto) 53.2 Lymph % (Auto) 29.1 [place] % (Auto) 13.4 H Eos % (Auto) 3.5 Baso % (Auto) 0.7 Lymph # (Auto) 2.06 [place] # (Auto) 1.0 H Eos # (Auto) 0.3 Baso # (Auto) 0.1 Abs Immat Gran (auto) 0.01 Absolute Neuts (auto) 3.8 Absolute Nucleated RBC 0.000 Nucleated RBC % 0.0 Sodium 135 L Potassium 3.7 Chloride 107 Carbon Dioxide 22 Anion Gap 6 BUN 5 L D Creatinine 0.61 L Estim Creat Clear Calc 48 Estimated GFR > 60 Glucose 106 POC Capillary Glucose 104 92 Hemoglobin A1c 6.1 H Calcium 8.3 L Magnesium 1.9 Procalcitonin 0.0 Influenza A (RT-PCR) Influenza B (RT-PCR) RSV (RT-PCR) SARS-CoV-2 RNA (RT-PCR) 06/30/25 06/30/25 06/30/25 18:11 12:06 11:53 WBC RBC Hgb Hct MCV MCH MCHC RDW Plt Count MPV Immature Gran % (Auto) Neut % (Auto) Lymph % (Auto) [place] % (Auto) Eos % (Auto) Baso % (Auto) Lymph # (Auto) [place] # (Auto) Eos # (Auto) Baso # (Auto) Abs Immat Gran (auto) Absolute Neuts (auto) Absolute Nucleated RBC Nucleated RBC % Sodium Potassium Chloride Carbon Dioxide Anion Gap BUN Creatinine Estim Creat Clear Calc Estimated GFR Glucose POC Capillary Glucose 130 H 112 H Hemoglobin A1c Calcium Magnesium Procalcitonin Influenza A (RT-PCR) Negative Influenza B (RT-PCR) Negative RSV (RT-PCR) Negative SARS-CoV-2 RNA (RT-PCR) Negative Discharge Plan Discharge Attending physician on discharge: Hortensia Cisneros Consulting providers: Nalini Hurd; Sebastian Barron; Tomás Lemons Discharging Clinician: Hortensia Cisneros Patient Disposition: Home Activity: may shower Diet: heart healthy Patient Instructions: Antibiotic Form, Syncope (GEN) Patient Language: Italian Stand Alone Forms: General Discharge Information Follow-up/Referrals: Sangita Torres APRN [Primary Care Provider, [facility]] - 07/06/25 Discharge Medications: New hydrocodone-acetaminophen 5-325 mg tablet 1 tablet PO Q8H PRN (Reason: pain) Qty: 5 0RF cefdinir 300 mg capsule 300 mg PO Q12H Qty: 7 0RF Continued aspirin 81 mg Capsule 81 mg PO DAILY omeprazole 20 mg capsule,delayed release(DR/EC) 20 mg PO DAILY potassium chloride 20 mEq tablet,ER particles/crystals 20 meq PO DAILY anastrozole 1 mg tablet 1 mg PO DAILY trazodone 50 mg tablet 50 mg PO QHS PRN (Reason: Insomnia) olmesartan 40 mg tablet 40 mg PO DAILY Qty: 90 2RF amlodipine 5 mg tablet 5 mg PO DAILY Qty: 90 1RF Other Ambulatory Orders: [place] cardiac event monitor (Routine) Timeframe: 1 Month Location: [facility] [place] Cardiology Ordered By: Nalini Hurd Date of admission: 06/30/25 09:42 Primary Care Provider: Sangita Torres Admitting Provider: Karen Lim Attending physician on admission: Karen Lim Condition: Stable Hospitalist MIPS Heart Failure (Exclusion) Patient has history of Heart Transplant or Left Ventricular Assistive Device?: No IF YES, STOP HERE Heart Failure (Qualifier) Patient has current or prior documentation of LVEF less than or equal to 40%, or mod/servere depressed LVSF?: No IF NO, STOP HERE
--- NOTE | 2025-07-01 11:17 | PM.PNCARD ---
Progress Note: A&P Assessment and Plan (1) Syncope: Code(s): R55 - Syncope and collapse Status: Acute Assessment and Plan: Sounds orthostatic in etiology. She was sitting outside in the heat. She started to feel hot and she stood to go back inside and within a couple of steps she became lightheaded and had her episode. Possibly related also to coexisting dehydration. She does have at a 11 beat run of nonsustained ventricular tachycardia on her campus monitor but again given her orthostatic vital sign showing tachycardia upon standing, I do think that her syncopal episode is most likely secondary to orthostasis. Can discharge with order for 30 day tele monitor. Echo showed grossly normal ejection fraction. Rehydrate and okay for discharge from cardiac perspective (2) Left bundle branch block: Code(s): I44.7 - Left bundle-branch block, unspecified Status: Acute Assessment and Plan: Chronic. (3) Essential (primary) hypertension: Code(s): I10 - Essential (primary) hypertension Status: Acute Assessment and Plan: At goal Subjective Date/time seen: 07/01/25 11:17 Interval history: 89-year-old admitted for syncope/presyncope. Date of service 07/01/2025: Feels okay. No recurrent syncope. [employer] project site monitor reviewed showing a 11 beat run of nonsustained ventricular tachycardia. No pauses. She has no chest pain or shortness of breath Review of Systems Review of Systems: All systems reviewed & are unremarkable except as noted in HPI and below Constitutional: Constitutional: Denies body ache(s) Eyes: Eyes: Denies blurry vision Cardiovascular: Cardiovascular: Denies chest pain Respiratory: Respiratory: Denies dyspnea Gastrointestinal: Gastrointestinal: Denies abdominal pain Musculoskeletal: Musculoskeletal: Denies back pain Integumentary/Breasts: Skin/Breast: Denies erythema Neurologic: Denies Abnormal speech present Endocrine: Endocrine: Denies change in body appearance Exam Narrative: Appears stated age Const: General: comfortable, no acute distress, alert and awake HENMT: Head: normal to inspection Face/Nose/Sinus: Normal nares present Eyes: General: appearance normal, both eyes and all related structures Sclera: sclerae normal Neck: Neck: normal visual inspection, supple and no JVD Carotids: normal carotid upstroke Resp: Effort & Inspection: normal respiratory effort Auscultation: diminished lung sounds Cardio: Rate: regular rate Rhythm: regular rhythm Heart sounds: S1 normal heart sound present, S2 normal heart sound present and no murmurs GI: Auscultation: normal bowel sounds Skin: General skin exam: normal color Neuro: General: patient oriented x3 Speech: normal speech Extrem: Other: right lower leg soft cast Psych: Appearance: grossly normal Mental Status: mental status grossly normal Objective Data Vital Signs Vital Signs: Vital Signs - 24 hr 06/30/25 12:00 06/30/25 12:00 06/30/25 12:20 Temperature 36.9 C Pulse Rate 81 88 Respiratory Rate 16 Blood Pressure 137/62 Pulse Oximetry 95 97 Oxygen Delivery Room Air 06/30/25 16:00 06/30/25 16:00 06/30/25 16:50 Temperature Pulse Rate 76 85 85 Respiratory Rate 16 Blood Pressure 135/54 L 135/54 L Pulse Oximetry 94 94 Oxygen Delivery 06/30/25 16:57 06/30/25 17:58 06/30/25 19:28 Temperature 36.9 C 36.8 C Pulse Rate 99 83 Respiratory Rate 20 Blood Pressure 158/77 H 139/55 L Pulse Oximetry 94 96 Oxygen Delivery 06/30/25 20:00 06/30/25 20:00 07/01/25 00:00 Temperature 36.9 C Pulse Rate 79 74 Respiratory Rate 20 Blood Pressure 127/51 L Pulse Oximetry 92 Oxygen Delivery Room Air 07/01/25 00:00 07/01/25 04:00 07/01/25 04:00 Temperature 37.0 C Pulse Rate 73 80 99 Respiratory Rate 20 Blood Pressure 128/58 L Pulse Oximetry 90 Oxygen Delivery 07/01/25 08:00 07/01/25 08:00 07/01/25 08:00 Temperature 36.8 C Pulse Rate 80 64 Respiratory Rate 16 Blood Pressure 125/49 L Pulse Oximetry 94 Oxygen Delivery Room Air 07/01/25 08:35 07/01/25 10:45 07/01/25 10:50 Temperature Pulse Rate 80 95 Respiratory Rate Blood Pressure 148/54 H 153/78 H Pulse Oximetry 93 Oxygen Delivery Room Air 07/01/25 10:55 Temperature Pulse Rate 126 H Respiratory Rate Blood Pressure 173/71 H Pulse Oximetry Oxygen Delivery Intake/Output Intake/Output: Intake & Output 06/28/25 06/29/25 06/30/25 07/01/25 23:59 23:59 23:59 23:59 Intake Total 622.9 1530.0 1898 Output Total 450 Balance 622.9 1080.0 1898 Meds/Results Medications: Active Medications Generic Name Dose Route Start Last Admin Trade Name Freq PRN Reason Stop Dose Admin Acetaminophen 650 mg 06/30/25 03:43 Acetaminophen 325 Mg Tablet PO Q6H PRN Mild Pain (1-3) or Fever Hydrocodone Bitart/Acetaminophen 1 tab 06/30/25 03:44 07/01/25 11:05 Hydrocodone/Acetaminophen (*Crx) 5-325 Mg Tablet PO 1 tab Q4H PRN Administration Pain Rated 4-6 Amlodipine Besylate 5 mg 06/30/25 09:00 07/01/25 09:37 Amlodipine Besylate 5 Mg Tablet PO 5 mg DAILY SAHIL Administration Anastrozole 1 mg 06/30/25 09:00 07/01/25 09:37 Anastrozole (*Chemo) 1 Mg Tablet PO 1 mg DAILY SAHIL Administration Aspirin 81 mg 06/30/25 09:00 07/01/25 09:37 Aspirin 81 Mg Chewable Tablet PO 81 mg DAILY SAHIL Administration Sodium Chloride 1,000 mls @ 75 mls/hr 06/29/25 18:10 07/01/25 02:00 Normal Saline Iv IV CONT 75 mls/hr .[id number] SAHIL Administration Ceftriaxone Sodium 1 gm/ 50 mls @ 100 mls/hr 06/30/25 09:00 07/01/25 09:36 Sodium Chloride IVPB 100 mls/hr Q24H SAHIL Administration Meclizine HCl 6.25 mg 06/29/25 21:46 07/01/25 09:42 Meclizine Hcl 6.25 Mg Tablet PO 6.25 mg TID PRN Administration Dizziness Morphine Sulfate 2 mg 06/30/25 03:44 06/30/25 10:07 Morphine Sulfate (*Crx) 2 Mg/Ml Inj IV PUSH 2 mg Q4H PRN Administration Pain Rated 7-10 Olmesartan 40 mg 06/30/25 09:00 07/01/25 09:37 Olmesartan Medoxomil 20 Mg Tablet PO 40 mg DAILY SAHIL Administration Pantoprazole Sodium 40 mg 06/30/25 09:00 07/01/25 09:37 Pantoprazole 40 Mg Tablet PO 40 mg QAM SAHIL Administration Potassium Chloride 20 meq 06/30/25 09:00 07/01/25 09:37 Potassium Chloride 20 Meq Er Tablet PO 20 meq DAILY SAHIL Administration Psyllium Hydrophilic Mucilloid 1 packet 06/30/25 09:00 07/01/25 09:37 Psyllium Powder Packet PO 1 packet DAILY SAHIL Administration Trazodone HCl 50 mg 06/29/25 21:48 Trazodone Hcl 50 Mg Tablet PO QHS PRN Insomnia Radiology Results: ITS Impressions Chest X-Ray 06/29/25 16:52 IMPRESSION: 1: NO ACUTE CARDIOPULMONARY DISEASE. Chest CTA 06/29/25 17:40 IMPRESSION: 1. Negative for pulmonary embolism. Incidental findings detailed above Ankle X-Ray 06/29/25 19:50 Impression: 1: Oblique nondisplaced distal fibular fracture with adjacent soft tissue swelling. Thyroid Ultrasound 06/30/25 11:07 IMPRESSION: 1. The study is limited due to the patient's imaging characteristics. 2. Visualized thyroid gland is heterogeneous with a few scattered calcifications and a few less than 1 cm left thyroid nodules. Carotid Doppler Study 06/30/25 11:49 IMPRESSION: 1. No hemodynamically significant ICA stenosis (i.e., if any stenosis, less than 50%). 2. Normal bilateral antegrade vertebral artery flow. Stenosis measured by Society of Radiologists in Ultrasound (SRU) criteria. Head CT 06/30/25 12:55 IMPRESSION: 1. No fracture or acute intracranial process. 2. 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 3. Age-related changes including mild to moderate diffuse volume loss and moderate scattered white matter hypoattenuation consistent with chronic small vessel ischemic disease. Labs Labs: Laboratory Results - last 24 hr 06/30/25 06/30/25 06/30/25 11:53 12:06 18:11 WBC RBC Hgb Hct MCV MCH MCHC RDW Plt Count MPV Immature Gran % (Auto) Neut % (Auto) Lymph % (Auto) [place] % (Auto) Eos % (Auto) Baso % (Auto) Lymph # (Auto) [place] # (Auto) Eos # (Auto) Baso # (Auto) Abs Immat Gran (auto) Absolute Neuts (auto) Absolute Nucleated RBC Nucleated RBC % Sodium Potassium Chloride Carbon Dioxide Anion Gap BUN Creatinine Estim Creat Clear Calc Estimated GFR Glucose POC Capillary Glucose 112 H 130 H Hemoglobin A1c Calcium Magnesium Procalcitonin Influenza A (RT-PCR) Negative Influenza B (RT-PCR) Negative RSV (RT-PCR) Negative SARS-CoV-2 RNA (RT-PCR) Negative 06/30/25 07/01/25 07/01/25 23:49 04:55 05:58 WBC 7.1 RBC 3.76 L Hgb 10.8 L Hct 33.2 L MCV 88.3 MCH 28.7 MCHC 32.5 RDW 14.3 Plt Count 191 MPV 10.0 Immature Gran % (Auto) 0.1 Neut % (Auto) 53.2 Lymph % (Auto) 29.1 [place] % (Auto) 13.4 H Eos % (Auto) 3.5 Baso % (Auto) 0.7 Lymph # (Auto) 2.06 [place] # (Auto) 1.0 H Eos # (Auto) 0.3 Baso # (Auto) 0.1 Abs Immat Gran (auto) 0.01 Absolute Neuts (auto) 3.8 Absolute Nucleated RBC 0.000 Nucleated RBC % 0.0 Sodium 135 L Potassium 3.7 Chloride 107 Carbon Dioxide 22 Anion Gap 6 BUN 5 L D Creatinine 0.61 L Estim Creat Clear Calc 48 Estimated GFR > 60 Glucose 106 POC Capillary Glucose 92 104 Hemoglobin A1c 6.1 H Calcium 8.3 L Magnesium 1.9 Procalcitonin 0.0 Influenza A (RT-PCR) Influenza B (RT-PCR) RSV (RT-PCR) SARS-CoV-2 RNA (RT-PCR) echo 1. Technically difficult study with suboptimal acoustic views. 2. There is normal biventricular size and systolic function. 3. In the available views, there does not appear to be any significant valvular abnormalities.
[2025-07-02] VITALS (9 sets, daily range): BP systolic 116–147; BP diastolic 50–55; PULSE 9–94; RESP 14–18; TEMP 36.7–37.2; O2SAT 91–96
[2025-07-02] MEDS: HYDROcodone/acetaminophen (*CRX) 5-325 MG TABLET 1 TAB PO ×3 (02:16→20:53)
[2025-07-02] MEDS: SODIUM CHLORIDE 0.9% IV 1,000 ML 75 ML IV CONT (04:38)
[2025-07-02 05:17] LABS: Hematocrit 32.7 % (37.0-47.0); Hemoglobin 10.9 g/dL (12.0-15.0); Immature Granulocyte Percent A 0.3 % (0-0.5); Lymphocytes Absolute Auto 2.01 K/mm3 (0.9-3.2); Mean Corpuscular HGB Conc 33.3 g/dl (32-36); Mean Corpuscular Hemoglobin 29.1 pg (26-34); Mean Corpuscular Volume 87.2 fl (80-100); Nucleated Red Blood Cells Absolute Auto 0.000 K/mm3 (0.0-0.012); Nucleated Red Blood Cells Perc 0.0 % (0.0-0.2); Platelet Count Result 207 k/mm3 (150-375); Red Blood Count 3.75 M/mm3 (4.2-5.4); White Blood Count 7.3 K/mm3 (4.5-10.0)
[2025-07-02 05:36] LABS: Anion Gap 4 mmol/L (4-12); Blood Urea Nitrogen 6 mg/dL (7-17); Calcium 8.4 mg/dL (8.4-10.2); Carbon Dioxide 25 mmol/L (22-30); Chloride 106 mmol/L (98-107); Estimated CRCL calculation 49 ml/min; Estimated Glomerular Filt Rate > 60; Glucose 126 mg/dL (65-110); Magnesium 2.0 mg/dL (1.6-2.3); Potassium 3.7 mmol/L (3.4-5.0); Sodium 135 mmol/L (137-145)
--- NOTE | 2025-07-02 09:23 | PM.PNCARD ---
Progress Note: A&P Assessment and Plan (1) Syncope: Code(s): R55 - Syncope and collapse Status: Acute Assessment and Plan: Sounds orthostatic in etiology. She was sitting outside in the heat. She started to feel hot and she stood to go back inside and within a couple of steps she became lightheaded and had her episode. Possibly related also to coexisting dehydration. She does have at a 11 beat run of nonsustained ventricular tachycardia on her cardiac monitor but again given her orthostatic vital sign showing tachycardia upon standing, I do think that her syncopal episode is most likely secondary to orthostasis. Can discharge with order for 30 day tele monitor. Echo showed grossly normal ejection fraction. (2) Left bundle branch block: Code(s): I44.7 - Left bundle-branch block, unspecified Status: Acute Assessment and Plan: Chronic. (3) Essential (primary) hypertension: Code(s): I10 - Essential (primary) hypertension Status: Acute Assessment and Plan: At goal (4) Bibasilar crackles: Code(s): R09.89 - Other specified symptoms and signs involving the circulatory and respiratory systems Status: Acute Assessment and Plan: She has worsening crackles on examination today. Will DC her IV fluids Subjective Date/time seen: 07/02/25 09:23 Interval history: 89-year-old admitted for syncope/presyncope. Date of service 07/01/2025: Feels okay. No recurrent syncope. clinical research monitor reviewed showing a 11 beat run of nonsustained ventricular tachycardia. No pauses. She has no chest pain or shortness of breath Date of service 07/02/2025: Still feels a bit lightheaded at times but telemetry is unrevealing. His no chest pain or shortness of breath Review of Systems Review of Systems: All systems reviewed & are unremarkable except as noted in HPI and below Constitutional: Constitutional: Denies body ache(s) Eyes: Eyes: Denies blurry vision Cardiovascular: Cardiovascular: Denies chest pain and Denies dyspnea Respiratory: Respiratory: Denies dyspnea Gastrointestinal: Gastrointestinal: Denies abdominal pain Musculoskeletal: Musculoskeletal: Denies back pain Integumentary/Breasts: Skin/Breast: Denies erythema Neurologic: Denies Abnormal speech present Endocrine: Endocrine: Denies change in body appearance Exam Narrative: Appears stated age Const: General: comfortable, no acute distress, alert and awake Orientation/consciousness: patient oriented x3 HENMT: Head: normal to inspection Face/Nose/Sinus: Normal nares present Eyes: General: appearance normal, both eyes and all related structures Sclera: sclerae normal Pupils: Equal, round and reactive pupils present Neck: Neck: normal visual inspection, supple and no JVD Carotids: normal carotid upstroke Resp: Effort & Inspection: normal respiratory effort Auscultation: crackles and diminished lung sounds Cardio: Rate: regular rate Rhythm: regular rhythm Heart sounds: S1 normal heart sound present, S2 normal heart sound present and no murmurs GI: Auscultation: normal bowel sounds Skin: General skin exam: normal color Neuro: General: patient oriented x3 Cranial nerves: Yes Equal, round and reactive pupils present Speech: normal speech and No Abnormal speech present Extrem: Other: right lower leg soft cast Psych: Appearance: grossly normal Mental Status: mental status grossly normal Objective Data Vital Signs Vital Signs: Vital Signs - 24 hr 07/01/25 10:40 07/01/25 10:45 07/01/25 10:50 Temperature Pulse Rate 80 95 Respiratory Rate Blood Pressure 148/54 H 153/78 H Pulse Oximetry Oxygen Delivery Room Air 07/01/25 10:53 07/01/25 10:55 07/01/25 12:00 Temperature 36.9 C Pulse Rate 126 H 86 Respiratory Rate 16 Blood Pressure 173/71 H 121/65 Pulse Oximetry 96 Oxygen Delivery Room Air 07/01/25 12:00 07/01/25 16:00 07/01/25 20:00 Temperature Pulse Rate 85 76 83 Respiratory Rate 18 Blood Pressure Pulse Oximetry 92 Oxygen Delivery Room Air 07/01/25 20:00 07/01/25 20:33 07/02/25 00:00 Temperature 36.5 C Pulse Rate 80 83 9 L Respiratory Rate 18 Blood Pressure 127/101 H Pulse Oximetry 92 Oxygen Delivery 07/02/25 04:00 07/02/25 05:59 Temperature 36.7 C Pulse Rate 75 79 Respiratory Rate 14 Blood Pressure 116/50 L Pulse Oximetry 91 Oxygen Delivery Intake/Output Intake/Output: Intake & Output 06/29/25 06/30/25 07/01/25 07/02/25 23:59 23:59 23:59 23:59 Intake Total 622.9 1530.0 4014 300 Output Total 450 300 Balance 622.9 1080.0 3714 300 Meds/Results Medications: Active Medications Generic Name Dose Route Start Last Admin Trade Name Freq PRN Reason Stop Dose Admin Acetaminophen 650 mg 06/30/25 03:43 Acetaminophen 325 Mg Tablet PO Q6H PRN Mild Pain (1-3) or Fever Hydrocodone Bitart/Acetaminophen 1 tab 06/30/25 03:44 07/02/25 02:16 Hydrocodone/Acetaminophen (*Crx) 5-325 Mg Tablet PO 1 tab Q4H PRN Administration Pain Rated 4-6 Amlodipine Besylate 5 mg 06/30/25 09:00 07/01/25 09:37 Amlodipine Besylate 5 Mg Tablet PO 5 mg DAILY SAHIL Administration Anastrozole 1 mg 06/30/25 09:00 07/01/25 09:37 Anastrozole (*Chemo) 1 Mg Tablet PO 1 mg DAILY SAHIL Administration Aspirin 81 mg 06/30/25 09:00 07/01/25 09:37 Aspirin 81 Mg Chewable Tablet PO 81 mg DAILY SAHIL Administration Sodium Chloride 1,000 mls @ 75 mls/hr 06/29/25 18:10 07/02/25 04:38 Normal Saline Iv IV CONT 75 mls/hr .[id number] SAHIL Administration Ceftriaxone Sodium 1 gm/ 50 mls @ 100 mls/hr 06/30/25 09:00 07/01/25 10:06 Sodium Chloride IVPB Infused Q24H SAHIL Infusion Meclizine HCl 6.25 mg 06/29/25 21:46 07/01/25 09:42 Meclizine Hcl 6.25 Mg Tablet PO 6.25 mg TID PRN Administration Dizziness Morphine Sulfate 2 mg 06/30/25 03:44 06/30/25 10:07 Morphine Sulfate (*Crx) 2 Mg/Ml Inj IV PUSH 2 mg Q4H PRN Administration Pain Rated 7-10 Olmesartan 40 mg 06/30/25 09:00 07/01/25 09:37 Olmesartan Medoxomil 20 Mg Tablet PO 40 mg DAILY SAHIL Administration Pantoprazole Sodium 40 mg 06/30/25 09:00 07/01/25 09:37 Pantoprazole 40 Mg Tablet PO 40 mg QAM SAHIL Administration Potassium Chloride 20 meq 06/30/25 09:00 07/01/25 09:37 Potassium Chloride 20 Meq Er Tablet PO 20 meq DAILY SAHIL Administration Psyllium Hydrophilic Mucilloid 1 packet 06/30/25 09:00 07/01/25 09:37 Psyllium Powder Packet PO 1 packet DAILY SAHIL Administration Trazodone HCl 50 mg 06/29/25 21:48 07/01/25 21:32 Trazodone Hcl 50 Mg Tablet PO 50 mg QHS PRN Administration Insomnia Radiology Results: ITS Impressions Chest X-Ray 06/29/25 16:52 IMPRESSION: 1: NO ACUTE CARDIOPULMONARY DISEASE. Chest CTA 06/29/25 17:40 IMPRESSION: 1. Negative for pulmonary embolism. Incidental findings detailed above Ankle X-Ray 06/29/25 19:50 Impression: 1: Oblique nondisplaced distal fibular fracture with adjacent soft tissue swelling. Thyroid Ultrasound 06/30/25 11:07 IMPRESSION: 1. The study is limited due to the patient's imaging characteristics. 2. Visualized thyroid gland is heterogeneous with a few scattered calcifications and a few less than 1 cm left thyroid nodules. Carotid Doppler Study 06/30/25 11:49 IMPRESSION: 1. No hemodynamically significant ICA stenosis (i.e., if any stenosis, less than 50%). 2. Normal bilateral antegrade vertebral artery flow. Stenosis measured by Society of Radiologists in Ultrasound (SRU) criteria. Head CT 06/30/25 12:55 IMPRESSION: 1. No fracture or acute intracranial process. 2. 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 3. Age-related changes including mild to moderate diffuse volume loss and moderate scattered white matter hypoattenuation consistent with chronic small vessel ischemic disease. Labs Labs: Laboratory Results - last 24 hr 07/01/25 07/01/25 07/01/25 11:21 16:36 17:52 WBC RBC Hgb Hct MCV MCH MCHC RDW Plt Count MPV Immature Gran % (Auto) Neut % (Auto) Lymph % (Auto) [place] % (Auto) Eos % (Auto) Baso % (Auto) Lymph # (Auto) [place] # (Auto) Eos # (Auto) Baso # (Auto) Abs Immat Gran (auto) Absolute Neuts (auto) Absolute Nucleated RBC Nucleated RBC % Sodium Potassium Chloride Carbon Dioxide Anion Gap BUN Creatinine Estim Creat Clear Calc Estimated GFR Glucose POC Capillary Glucose 105 111 H 152 H Calcium Magnesium 07/01/25 07/02/25 07/02/25 19:57 00:21 04:51 WBC 7.3 RBC 3.75 L Hgb 10.9 L Hct 32.7 L MCV 87.2 MCH 29.1 MCHC 33.3 RDW 14.3 Plt Count 207 MPV 10.3 Immature Gran % (Auto) 0.3 Neut % (Auto) 52.9 Lymph % (Auto) 27.5 [place] % (Auto) 13.8 H Eos % (Auto) 4.8 H Baso % (Auto) 0.7 Lymph # (Auto) 2.01 [place] # (Auto) 1.0 H Eos # (Auto) 0.4 H Baso # (Auto) 0.1 Abs Immat Gran (auto) 0.02 Absolute Neuts (auto) 3.9 Absolute Nucleated RBC 0.000 Nucleated RBC % 0.0 Sodium 135 L Potassium 3.7 Chloride 106 Carbon Dioxide 25 Anion Gap 4 BUN 6 L Creatinine 0.59 L Estim Creat Clear Calc 49 Estimated GFR > 60 Glucose 126 H POC Capillary Glucose 107 H 113 H Calcium 8.4 Magnesium 2.0 07/02/25 07/02/25 05:18 07:28 WBC RBC Hgb Hct MCV MCH MCHC RDW Plt Count MPV Immature Gran % (Auto) Neut % (Auto) Lymph % (Auto) [place] % (Auto) Eos % (Auto) Baso % (Auto) Lymph # (Auto) [place] # (Auto) Eos # (Auto) Baso # (Auto) Abs Immat Gran (auto) Absolute Neuts (auto) Absolute Nucleated RBC Nucleated RBC % Sodium Potassium Chloride Carbon Dioxide Anion Gap BUN Creatinine Estim Creat Clear Calc Estimated GFR Glucose POC Capillary Glucose 126 H 122 H Calcium Magnesium
[2025-07-02] MEDS: POTASSIUM CHLORIDE 20 MEQ ER TABLET PO (10:18)
[2025-07-02] MEDS: ANASTROZOLE (*CHEMO) 1 MG TABLET PO (10:18)
[2025-07-02] MEDS: ASPIRIN 81 MG CHEWABLE TABLET PO (10:18)
[2025-07-02] MEDS: OLMESARTAN MEDOXOMIL 20 MG TABLET 40 MG PO (10:18)
[2025-07-02] MEDS: cefTRIAXone 1 GM in SODIUM CHLORIDE 0.9% IV 50 ML 100 ML IVPB (10:18)
[2025-07-02] MEDS: PANTOPRAZOLE 40 MG TABLET PO (10:18)
[2025-07-02] MEDS: PSYLLIUM POWDER PACKET 1 PACKET PO (10:47)
--- NOTE | 2025-07-02 11:52 | P.PNIM_ITS ---
Progress Note: A&P Assessment and Plan (1) Right fibular fracture: Code(s): S82.401A - Unspecified fracture of shaft of right fibula, initial encounter for closed fracture Status: Acute (2) Bibasilar crackles: Code(s): R09.89 - Other specified symptoms and signs involving the circulatory and respiratory systems Status: Acute (3) Syncope and collapse: Code(s): R55 - Syncope and collapse Status: Acute (4) Dizziness: Code(s): R42 - Dizziness and giddiness Status: Acute (5) Constipation: Code(s): K59.00 - Constipation, unspecified Status: Acute (6) UTI (urinary tract infection): Code(s): N39.0 - Urinary tract infection, site not specified Status: Acute Plan 89-year-old female with PMH hypertension, breast cancer status post lumpectomy on anastrozole, progressive memory loss, constipation on Metamucil, history of UTI, history of dizziness and palpitations, left bundle branch block, GERD, hypercholesterolemia, hyperglycemia, cardiac in 2000 with severe hypokalemia and V-tach. She presents to [facility] ER on 06/29/2025 as she was at home about her usual when she was going into her back door from the porch and she felt dizzy and she had syncope. She states her daughter said she hit her head. Patient did not notice any seizure activity, she says she was fine afterwards. She has not felt ill recently however she reports chronic intermittent chest pain, dizziness, vertigo, nausea in the morning, shortness of breath. In the ER she was hemodynamically stable, her WBC 12.3 K, hemoglobin 12.2, sodium mildly low at 136, BUN 12, serum creatinine 0.85, glucose 125, troponin negative x3, EKG demonstrating normal sinus rhythm with the old left bundle branch block, urinalysis cloudy with specific gravity greater than 1.05, positive leukocyte esterase and 11-20 wbc's, no bacteria. A CTA chest PE protocol performed did not show PE, no acute cardiopulmonary disease. A two- view right ankle x-ray demonstrated oblique nondisplaced distal fibular fracture with adjacent soft tissue swelling. On the telemetry unit patient denies any current symptoms, denies feeling ill recently, fever, chest pain, shortness of breath, nausea vomiting diarrhea, denies sores, denies ear pain, denies palpitations. I reviewed previous records and it appears she last saw Dr. Cordero cardiology in 07/2024. Reportedly she had V-tach arrest in 2000 while she was on a cruise. Cardiac catheterization at that time showed no significant disease. She has had chronic intermittent episodes of left chest pressure that happens once a week with no aggravating or relieving factors. Does not know if the omeprazole helps or not. Apparently she did not want to undergo invasive testing anymore. ----- Syncope -cardiology consulted. Recommendations good. Likely orthostasis. Fall pre cautions, ambulate with assistance. PT/OT evaluations. Disposition [facility]SHAL. -head CT on 06/30/2025 without acute intracranial process. 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 ..... Age related changes including mild to moderate diffuse volume loss and moderate scattered white matter -carotid Doppler ultrasound no hemodynamically significant ICA stenosis -surface echocardiogram EF 50-50% Neurocognitive disorder -frequent reorientation, promote good sleep-wake cycle Right oblique nondisplaced distal fibular fracture -continue boot, weight-bearing as tolerated. Therapy. To follow-up with Dr. Barron in the office. Continue [place] p.r.n. Bibasilar crackle -discontinue IV fluids Incidental thyroid calcification -thyroid ultrasound on 06/30/2025 reports few scattered calcifications and few less than 1 cm left thyroid nodules. -TSH 1.24 -..... - Abnormal urinalysis -urine culture mixed urogenital anne. Discontinue ceftriaxone. Follow-up blood cultures Constipation -no BM since prior to admission. Milk of magnesia Continue [employer] amlodipine, olmesartan. Monitor blood pressures Continue [employer] aspirin Continue [employer] anastrozole Continue [employer] PPI Continue [employer] trazodone Patient wishes to be DNR. She lives with her daughter. Lovenox 40 mg subQ q.day Saline lock IV Subjective Date/time seen: 07/02/25 11:52 Interval history: No major acute overnight events. Patient reports she has not had a bowel movement since prior to admission. Reports pain however controlled with p.r.n. pain medication. Denies shortness of breath, chest pain, fever, cough. Review of Systems Review of Systems: All systems reviewed & are unremarkable except as noted in HPI and below (Subjective) Exam Const: General: comfortable and no acute distress Other: A&O x2 HENMT: Mouth: Yes moist mucous membranes Eyes: Pupils: Equal, round and reactive pupils present Neck: Neck: supple Resp: Effort & Inspection: normal respiratory effort Other: Bibasilar crackles Cardio: Rate: regular rate Rhythm: regular rhythm GI: Inspection: non-distended GI Palp: Yes Soft to palpation Neuro: Motor exam (neuro): 5/5 motor strength present throughout Extrem: General: no edema Objective Data Vital Signs Vital Signs: Vital Signs - 24 hr 07/01/25 12:00 07/01/25 12:00 07/01/25 16:00 Temperature 98.5 F Pulse Rate 86 85 76 Respiratory Rate 16 Blood Pressure 121/65 Pulse Oximetry 96 Oxygen Delivery 07/01/25 20:00 07/01/25 20:00 07/01/25 20:33 Temperature 97.7 F Pulse Rate 83 80 83 Respiratory Rate 18 18 Blood Pressure 127/101 H Pulse Oximetry 92 92 Oxygen Delivery Room Air 07/02/25 00:00 07/02/25 04:00 07/02/25 05:59 Temperature 98.1 F Pulse Rate 9 L 75 79 Respiratory Rate 14 Blood Pressure 116/50 L Pulse Oximetry 91 Oxygen Delivery 07/02/25 08:00 07/02/25 08:00 Temperature Pulse Rate 71 Respiratory Rate Blood Pressure Pulse Oximetry Oxygen Delivery Room Air Intake/Output Intake/Output: Intake & Output 06/29/25 06/30/25 07/01/25 07/02/25 23:59 23:59 23:59 23:59 Intake Total 622.9 1530.0 4014 470 Output Total 450 300 Balance 622.9 1080.0 3714 470 Meds/Results Medications: Active Medications Generic Name Dose Route Start Last Admin Trade Name Freq PRN Reason Stop Dose Admin Acetaminophen 650 mg 06/30/25 03:43 Acetaminophen 325 Mg Tablet PO Q6H PRN Mild Pain (1-3) or Fever Hydrocodone Bitart/Acetaminophen 1 tab 06/30/25 03:44 07/02/25 11:38 Hydrocodone/Acetaminophen (*Crx) 5-325 Mg Tablet PO 1 tab Q4H PRN Administration Pain Rated 4-6 Amlodipine Besylate 5 mg 06/30/25 09:00 07/02/25 10:18 Amlodipine Besylate 5 Mg Tablet PO 5 mg DAILY SAHIL Administration Anastrozole 1 mg 06/30/25 09:00 07/02/25 10:18 Anastrozole (*Chemo) 1 Mg Tablet PO 1 mg DAILY SAHIL Administration Aspirin 81 mg 06/30/25 09:00 07/02/25 10:18 Aspirin 81 Mg Chewable Tablet PO 81 mg DAILY SAHIL Administration Ceftriaxone Sodium 1 gm/ 50 mls @ 100 mls/hr 06/30/25 09:00 07/02/25 10:48 Sodium Chloride IVPB Infused Q24H SAHIL Infusion Meclizine HCl 6.25 mg 06/29/25 21:46 07/01/25 09:42 Meclizine Hcl 6.25 Mg Tablet PO 6.25 mg TID PRN Administration Dizziness Morphine Sulfate 2 mg 06/30/25 03:44 06/30/25 10:07 Morphine Sulfate (*Crx) 2 Mg/Ml Inj IV PUSH 2 mg Q4H PRN Administration Pain Rated 7-10 Olmesartan 40 mg 06/30/25 09:00 07/02/25 10:18 Olmesartan Medoxomil 20 Mg Tablet PO 40 mg DAILY SAHIL Administration Pantoprazole Sodium 40 mg 06/30/25 09:00 07/02/25 10:18 Pantoprazole 40 Mg Tablet PO 40 mg QAM SAHIL Administration Potassium Chloride 20 meq 06/30/25 09:00 07/02/25 10:18 Potassium Chloride 20 Meq Er Tablet PO 20 meq DAILY SAHIL Administration Psyllium Hydrophilic Mucilloid 1 packet 06/30/25 09:00 07/02/25 10:47 Psyllium Powder Packet PO 1 packet DAILY SAHIL Administration Trazodone HCl 50 mg 06/29/25 21:48 07/01/25 21:32 Trazodone Hcl 50 Mg Tablet PO 50 mg QHS PRN Administration Insomnia Radiology Results: ITS Impressions Chest X-Ray 06/29/25 16:52 IMPRESSION: 1: NO ACUTE CARDIOPULMONARY DISEASE. Chest CTA 06/29/25 17:40 IMPRESSION: 1. Negative for pulmonary embolism. Incidental findings detailed above Ankle X-Ray 06/29/25 19:50 Impression: 1: Oblique nondisplaced distal fibular fracture with adjacent soft tissue swelling. Thyroid Ultrasound 06/30/25 11:07 IMPRESSION: 1. The study is limited due to the patient's imaging characteristics. 2. Visualized thyroid gland is heterogeneous with a few scattered calcifications and a few less than 1 cm left thyroid nodules. Carotid Doppler Study 06/30/25 11:49 IMPRESSION: 1. No hemodynamically significant ICA stenosis (i.e., if any stenosis, less than 50%). 2. Normal bilateral antegrade vertebral artery flow. Stenosis measured by Society of Radiologists in Ultrasound (SRU) criteria. Head CT 06/30/25 12:55 IMPRESSION: 1. No fracture or acute intracranial process. 2. 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 3. Age-related changes including mild to moderate diffuse volume loss and moderate scattered white matter hypoattenuation consistent with chronic small vessel ischemic disease. Labs Labs: Laboratory Results - last 24 hr 07/01/25 07/01/25 07/01/25 16:36 17:52 19:57 WBC RBC Hgb Hct MCV MCH MCHC RDW Plt Count MPV Immature Gran % (Auto) Neut % (Auto) Lymph % (Auto) [place] % (Auto) Eos % (Auto) Baso % (Auto) Lymph # (Auto) [place] # (Auto) Eos # (Auto) Baso # (Auto) Abs Immat Gran (auto) Absolute Neuts (auto) Absolute Nucleated RBC Nucleated RBC % Sodium Potassium Chloride Carbon Dioxide Anion Gap BUN Creatinine Estim Creat Clear Calc Estimated GFR Glucose POC Capillary Glucose 111 H 152 H 107 H Calcium Magnesium 07/02/25 07/02/25 07/02/25 00:21 04:51 05:18 WBC 7.3 RBC 3.75 L Hgb 10.9 L Hct 32.7 L MCV 87.2 MCH 29.1 MCHC 33.3 RDW 14.3 Plt Count 207 MPV 10.3 Immature Gran % (Auto) 0.3 Neut % (Auto) 52.9 Lymph % (Auto) 27.5 [place] % (Auto) 13.8 H Eos % (Auto) 4.8 H Baso % (Auto) 0.7 Lymph # (Auto) 2.01 [place] # (Auto) 1.0 H Eos # (Auto) 0.4 H Baso # (Auto) 0.1 Abs Immat Gran (auto) 0.02 Absolute Neuts (auto) 3.9 Absolute Nucleated RBC 0.000 Nucleated RBC % 0.0 Sodium 135 L Potassium 3.7 Chloride 106 Carbon Dioxide 25 Anion Gap 4 BUN 6 L Creatinine 0.59 L Estim Creat Clear Calc 49 Estimated GFR > 60 Glucose 126 H POC Capillary Glucose 113 H 126 H Calcium 8.4 Magnesium 2.0 07/02/25 07/02/25 07:28 11:30 WBC RBC Hgb Hct MCV MCH MCHC RDW Plt Count MPV Immature Gran % (Auto) Neut % (Auto) Lymph % (Auto) [place] % (Auto) Eos % (Auto) Baso % (Auto) Lymph # (Auto) [place] # (Auto) Eos # (Auto) Baso # (Auto) Abs Immat Gran (auto) Absolute Neuts (auto) Absolute Nucleated RBC Nucleated RBC % Sodium Potassium Chloride Carbon Dioxide Anion Gap BUN Creatinine Estim Creat Clear Calc Estimated GFR Glucose POC Capillary Glucose 122 H 133 H Calcium Magnesium
[2025-07-02] MEDS: ENOXAPARIN 40 MG/0.4 ML SYRINGE SUB-Q (14:16)
[2025-07-02] MEDS: BISACODYL 10 MG SUPPOSITORY RECTAL (18:25)
[2025-07-03] VITALS (7 sets, daily range): BP systolic 100–133; BP diastolic 51–73; PULSE 88–107; RESP 18; TEMP 36.4–36.8; O2SAT 93–98
[2025-07-03] MEDS: HYDROcodone/acetaminophen (*CRX) 5-325 MG TABLET 1 TAB PO ×3 (02:59→13:37)
[2025-07-03] MEDS: PSYLLIUM POWDER PACKET 1 PACKET PO (08:21)
[2025-07-03] MEDS: PANTOPRAZOLE 40 MG TABLET PO (08:22)
[2025-07-03] MEDS: ASPIRIN 81 MG CHEWABLE TABLET PO (08:22)
[2025-07-03] MEDS: OLMESARTAN MEDOXOMIL 20 MG TABLET 40 MG PO (08:22)
[2025-07-03] MEDS: ANASTROZOLE (*CHEMO) 1 MG TABLET PO (08:23)
[2025-07-03] MEDS: ENOXAPARIN 40 MG/0.4 ML SYRINGE SUB-Q (08:23)
[2025-07-03] MEDS: POTASSIUM CHLORIDE 20 MEQ ER TABLET PO (08:23)
--- NOTE | 2025-07-03 13:50 | P.DS_ITS ---
DS: Admitting Diagnosis Discharge Date 07/03/2025 Admitting Diagnosis Syncope DS: Discharge Diagnosis Discharge Diagnosis (1) Essential (primary) hypertension: Code(s): I10 - Essential (primary) hypertension Status: Acute (2) Left bundle branch block: Code(s): I44.7 - Left bundle-branch block, unspecified Status: Acute (3) Constipation: Code(s): K59.00 - Constipation, unspecified Status: Acute (4) Ankle fracture, right: Code(s): S82.891A - Other fracture of right lower leg, initial encounter for closed fracture Status: Acute (5) Syncope and collapse: Code(s): R55 - Syncope and collapse Status: Acute DS: Summary Hospital Course Hospital Course: 89-year-old female with PMH hypertension, breast cancer status post lumpectomy on anastrozole, progressive memory loss, constipation on Metamucil, history of UTI, history of dizziness and palpitations, left bundle branch block, GERD, hypercholesterolemia, hyperglycemia, cardiac in 2000 with severe hypokalemia and V-tach. She presents to [facility] ER on 06/29/2025 as she was at home about her usual when she was going into her back door from the porch and she felt dizzy and she had syncope. She states her daughter said she hit her head. Patient did not notice any seizure activity, she says she was fine afterwards. She has not felt ill recently however she reports chronic intermittent chest pain, dizziness, vertigo, nausea in the morning, shortness of breath. Cardiology consultation completed. Thought to be orthostatic in nature. Patient did not have any further dizziness or syncope. Subsequent orthostatic vital signs were negative. Patient did receive fluids. No ACS. Advised Holter monitor on discharge. Urine culture negative. Blood cultures no growth to date. She did receive ceftriaxone. Had no symptomatology to indicate ongoing infection. She sustained a right oblique nondisplaced distal fibular fracture from her fall. She has been set up to see Dr. Jain in the office. Splint applied, boot applied. Weight-bearing as tolerated. Seen by Physical therapy, advised discharge to [place] rehab. She is discharged in stable condition on 07/03/2025 to [facility]. Spoke with the patient's son, Dr. Weiner, about her plan of care to which he agreed. Thyroid ultrasound demonstrates few scattered calci fications and a few less than 1 cm left thyroid nodules, advise outpatient follow-up. TSH 1.36. Constipation: Relieved with 1 time bisacodyl suppository. Continue p.r.n. on discharge as well as her [employer] Metamucil p.r.n. all the patient's questions and concerns were answered to satisfaction. She was DNR during the admission. Time Spent with Patient Time attestation: Total time spent providing and/or coordinating discharge services: Time spent: Greater than 30 minutes Exam Const: General: comfortable and no acute distress Other: A&O x2 HENMT: Mouth: Yes moist mucous membranes Eyes: Pupils: Equal, round and reactive pupils present Neck: Neck: supple Resp: Effort & Inspection: normal respiratory effort Cardio: Rate: regular rate Rhythm: regular rhythm GI: Inspection: non-distended GI Palp: Yes Soft to palpation Neuro: Motor exam (neuro): 5/5 motor strength present throughout Extrem: General: no edema DS: Data Data Completed and Pending Labs on day of discharge: Labs from last 24 hours 07/02/25 18:46 POC Capillary Glucose 139 H Preliminary micro results at discharge 06/30/25 08:26 Blood Culture - Preliminary Blood 06/30/25 08:30 Blood Culture - Preliminary Blood Discharge Plan Discharge Attending physician on discharge: Hortensia Cisneros Consulting providers: Nalini Hurd; Sebastian Barron; Tomás Lemons Discharging Clinician: Hortensia Cisneros Patient Disposition: [facility] Activity: february shower Diet: heart healthy Patient Instructions: Antibiotic Form, Pain Management in Older Adults (DC), Syncope (GEN) Patient Language: Bhutanese Stand Alone Forms: General Discharge Information Follow-up/Referrals: Sebastian Barron MD [Physician, Orthopedics] - 07/10/25 1:00 pm Sangita Torres APRN [Primary Care Provider, Family Practice] - 07/06/25 Discharge Medications: New hydrocodone-acetaminophen 5-325 mg tablet 1 tablet PO Q8H PRN (Reason: pain) Qty: 5 0RF bisacodyl 10 mg suppository 10 mg RECTAL DAILY PRN (Reason: constipation) Qty: 12 0RF psyllium husk [Metamucil] 0.4 gram capsule 0.4 g PO DAILY PRN (Reason: constipation) Qty: 30 0RF Continued aspirin 81 mg Capsule 81 mg PO DAILY omeprazole 20 mg capsule,delayed release(DR/EC) 20 mg PO DAILY potassium chloride 20 mEq tablet,ER particles/crystals 20 meq PO DAILY anastrozole 1 mg tablet 1 mg PO DAILY trazodone 50 mg tablet 50 mg PO QHS PRN (Reason: Insomnia) olmesartan 40 mg tablet 40 mg PO DAILY Qty: 90 2RF amlodipine 5 mg tablet 5 mg PO DAILY Qty: 90 1RF Other Ambulatory Orders: [place] cardiac event monitor (Routine) Timeframe: 1 Month [place] [facility] [place] Ordered By: Nalini Hurd Date of admission: 06/30/25 09:42 Primary Care Provider: Sangita Torres Admitting Provider: Karen Lim Attending physician on admission: Karen Lim Condition: Stable Hospitalist MIPS Heart Failure (Exclusion) Patient has history of Heart Transplant or Left Ventricular Assistive Device?: No IF YES, STOP HERE Heart Failure (Qualifier) Patient has current or prior documentation of LVEF less than or equal to 40%, or mod/servere depressed LVSF?: No IF NO, STOP HERE
== END 2025-07-03 14:45 | DRG 312 ==
LOC: ANHED 18:03 → ANHIMU 19:31 → ANH2MED 07-01 09:53 → ANHIMU 07-05 15:00
PROVIDERS: Nurse Practitioner; Admitting Provider Family Medicine; Emergency Provider Emergency Medicine; PCP Nurse Practitioner Adult Health; Visit Provider General Practice
DX: R55 Syncope and collapse (principal); I44.7 Left bundle-branch block, unspecified; I10 Essential (primary) hypertension; S82.831A Other fracture of upper and lower end of right fibula, initial encounter for closed fracture; K21.9 Gastro-esophageal reflux disease without esophagitis; K59.00 Constipation, unspecified; E04.1 Nontoxic single thyroid nodule; E78.00 Pure hypercholesterolemia, unspecified; R41.3 Other amnesia; R07.9 Chest pain, unspecified; R09.89 Other specified symptoms and signs involving the circulatory and respiratory systems; Z20.822 Contact with and (suspected) exposure to COVID-19; Z79.82 Long term (current) use of aspirin; Z85.3 Personal history of malignant neoplasm of breast
CPT/HCPCS: 36415; 70450; 71046; 71275; 73600; 76536; 80048; 80053; 81001; 82948; 83036; 83735; 84145; 84443; 84484; 85025; 87040; 87086; 87637; 93005; 93880; 97110; 97161; 97165; 97530; 99285; A9270; C8929; G0378; J0696; J1650; J2270; J7030; Q9957; Q9967

== ENCOUNTER 2025-07-18 15:55 | Emergency (ER) | payer MEDICARE, SELFPAY ==
--- OUTSIDE RECORDS SUMMARY | 2002-03-09 04:15 | XMS_ITS | Continuity of Care Document ---
Author Organization [facility] Address [id number] [place] [address] [place] [address] Phone Care Team Providers Care Engraving Operator Name Role Phone Sirisha GOMEZ FACS, Jasper Unavailable Unavailab le Advance Directives Directive Yes / No Effective Date File Name No Information Encounters Encounter Description Practice Location Reason(s) For Visit Diagnoses Date Provider Providers Copied on Encounter [facility], [address], [place], [place], [id number], [place] tel:[phone] [facility] No Information [address] Sirisha Hutchinson. [address], [address], [place], [place], [address], [place]. tel:[phone] Family History Family Member Type Diagnosis Age At Onset No Information Payers Payer name Insurance type Covered constitution party ID Authoriza tion(s) [place] [id number] Social History Type Description Quantity Date Captured Comments Sex Female Smoking Status No Information Chief Complaint And Reason For Visit No Information Reason For Referral Reason For Referral No Information History Of Present Illness Encounter Date Complaint History Of Prese nt Illness No Information Functional Status Date Functional Assessmen t No Information Instructions Date Instruction Additional Infor mation No Information Assessments Type Assessment Date No Information Patient Care Teams Name Effective Dates (start - stop) Status Members No Information
--- OUTSIDE RECORDS SUMMARY | 2002-03-09 04:15 | XMS_ITS | Continuity of Care Document ---
Author Organization [facility] Address [id number] [place] [address] [place] [address] Phone Care Team Providers Care Refinery Technician Name Role Phone Sirisha GOMEZ FACS, Jasper Unavailable Unavailab le Advance Directives Directive Yes / No Effective Date File Name No Information Encounters Encounter Description Practice Location Reason(s) For Visit Diagnoses Date Provider Providers Copied on Encounter [facility], [address], [place], [place], [id number], [place] tel:[phone] [facility] No Information [address] Sirisha Hutchinson. [address], [address], [place], [place], [address], [place]. tel:[phone] Family History Family Member Type Diagnosis Age At Onset No Information Payers Payer name Insurance type Covered green party ID Authoriza tion(s) [place] [id number] Social History Type Description Quantity Date Captured [...]
--- NOTE | ~2025-07-18 | XR_ITS ---
EXAMINATION: XR chest 2V, 07/18/2025 16:45 CDT HISTORY: unknown cause weakness COMPARISON: No comparisons available. Technique: 2 views obtained. Findings: The lungs are clear, no effusion. No pneumothorax. Heart is normal size. Mediastinal and hilar contours are within normal limits. Bony thorax no acute abnormality. Impression: No acute cardiopulmonary abnormality. Reviewed, dictated and finalized at location P. Impression: No acute cardiopulmonary abnormality.
--- NOTE | ~2025-07-18 | CT_ITS ---
EXAMINATION: CT brain wo raysa, 07/18/2025 16:53 CDT HISTORY: weakness, dizziness COMPARISON: No comparisons available. Technique: Axial images obtained of the brain without contrast. One or more of the following dose reduction techniques were used: automated exposure control, adjustment of the mA and/or kV according to patient size, use of iterative reconstruction technique. Findings: No acute infarct or parenchymal hemorrhage. No abnormal mass or mass effect. No midline shift. No extra-axial fluid collections. No hydrocephalus. Mastoid air cells unremarkable. Sinuses and orbits unremarkable. No acute fracture. No significant facial or scalp soft tissue swelling evident. No radiopaque foreign body is seen. Impression: 1.No acute intracranial abnormality. Reviewed, dictated and finalized at location P. Impression: 1.No acute intracranial abnormality.
[2025-07-18 15:57] VITALS: BP 135/54; PULSE 67; RESP 16; TEMP 36.5; O2SAT 99
--- OUTSIDE RECORDS SUMMARY | 2025-07-18 15:57 | XMS_ITS | Clinical Summary ---
Author Organization [facility] Address [address] [facility], [address] [address] Phone Care Team Providers Care Manager Custom Name Role Phone Sangita Torres APRN Primary Care Provider +1- [phone] Allergies No known active allergies Medications mesalamine (ASACOL HD) 800 MG Tablet Delayed Response Act farhan metoprolol Succinate (TOPROL-XL) 100 MG TABLET SR 24 HR Acti ve lansoprazole (PREVACID) 15 MG CAPSULE DELAYED RELEASE Active simvastatin (ZOCOR) 10 MG Tablet Active solifenacin (VESICARE) 10 MG Tablet Active Active Problems Problem Noted Date Diagnosed Date Constipation Overview (08/09/2015): Instructed to take metamucil and probiotic for chronic idiopathic constipation. Take miralax instead of stool softener Dysphagia GERD (gastroesophageal reflux disease) Mechanical complication of esophagostomy Encounters Date Type Department Care Team Description 07/17/2025 Travel from Last 3 Months Social History Tobacco Use Types Packs/Day Years Used Date Smoking Tobacco: Never Assessed Comments Unknown Sex and Gender Information Value Date Recorded Sex Assigned at Not on file Legal Sex Female 11:39 PM CDT Gender Identity Not on file Sexual Orientation Not on file Plan of Treatment Upcoming Encounters Date Type Department Care Team (Late st Contact Info) Description 07/19/2025 8:30 AM CDT Appointment [facility] [address] [place] [address] Pratima Montes De Oca RN [place] 07/20/2025 9:30 AM CDT Appointment [facility] [address] [place] [address] Pratima Douglas OT 07/20/2025 1:00 PM CDT Appointment [facility] [address] [place] [address] Erica Noel, PT [place] Health Maintenance Due Date Last Done Comments DEXA Bone Density 1935 Hepatitis C Virus (HCV) Screening 1935 TdaP Immunization 1935 Pneumococcal Immunization (5 0+ years) (1 of 1 - PCV) 1985 Zoster Immunization (1 of 2) 1985 Medicare Initial AWV [id number] 11/19/2001 Respiratory Syncytial Virus (RSV) Immunization (Adult) (1 - 1-dose 75+ series) 2010 Influenza Immunization (#1) 2025 SARS-COV-2 Immunization ( season) 2025 04/28/2022, 01/08/2021, 12/18/2020 Hepatitis B Immunization Aged Out No longer eligible based on patient's age to complete this topic Human Papillomavirus (HPV) Immunization Aged Out No longer eligible b ased on patient's age to complete this topic Meningococcal Immunization (ACWY) Aged Out No longer eligible b ased on patient's age to complete this topic Rotavirus Immunization Aged Out No lo nger eligible based on patient's age to complete this topic Insurance MEDICARE [facility] Care Teams Manager Custom Relationship Specialty Start Date End Date Sangita Torres APRN [address] [place] [address] PCP - General Advanced Practice Nurse 07/17/25
--- OUTSIDE RECORDS SUMMARY | 2025-07-18 15:57 | XMS_ITS | Encounter Summary ---
Author Organization [facility] [employer] Care Team Providers Care Family Reunification Specialist Name Role Phone Sangita Torres APRN Primary Care Provider [phone]- [phone] Encounter Details Date Type Department Care Team (Latest Contact Info) Description 07/17/2025 Travel Social History Tobacco Use Types Packs/Day Years Used Date Smoking Tobacco: Never Assessed Comments Unknown Sex and Gender Information Value Date Recorded Sex Assigned at Not on file Legal Sex Female 11:39 PM CDT Gender Identity Not on file Sexual Orientation Not on file documented as of this encounter Plan of Treatment Upcoming Encounters Date Type Department Care Team (Late st Contact Info) Description 07/19/2025 8:30 AM CDT Appointment [address] [address] Pratima Montes De Oca, RN [place] 07/20/2025 9:30 AM CDT Appointment [address] [address] Pratima Douglas, SINGH 07/20/2025 1:00 PM CDT Appointment [address] [address] Erica Noel, PT [place] documented as of this encounter Visit Diagnoses Not on filedocumented in this encounter Care Teams Family Reunification Specialist Relationship Specialty Start Date End Date Sangita Torres APRN [address] [place] [id number] PCP - General Advanced Practice Nurse 07/17/25 documented as of this encounter
--- OUTSIDE RECORDS SUMMARY | 2025-07-18 15:57 | XMS_ITS | Clinical Summary ---
Author Organization [facility] Address [address] [place] [address] Care Team Providers Care Injection Molding Operator Name Role Phone Luis Edgar MD Primary Care Provider +1- [phone] Allergies No known active allergies Medications metoprolol [...] A AND B [employer] SUPP Care Teams Injection Molding Operator Relationship Specialty Start Date End Date Luis Edgar MD PCP - General Family Practice 02/16/23
--- NOTE | 2025-07-18 16:02 | ECG_ITS ---
Test Date: 2025-07-18 16:09:43 Measurements Intervals [place] Rate: 64 P: 75 NM: 170 QRS: -24 QRSD: 148 T: 132 QT: 455 QTc: 471 Interpretive Statements SINUS RHYTHM LEFT BUNDLE BRANCH BLOCK [120+ ms QRS DURATION, 80+ ms Q/S IN V1/V2, 85+ ms R IN I/aVL/V5/V6] Compared to ECG 06/29/2025 16:00:14 No significant changes Electronically Signed On 07-18-2025 16:58:30 CDT by Barb Cordero M.D.
--- NOTE | 2025-07-18 16:03 | ED_ITS ---
HPI - Nausea/Vomiting/Diarrhea General Chief complaint: Nausea/Vomiting/Diarrhea <Breann Barron APRN - Last Filed: 07/18/25 16:06> Stated complaint: nausea <Breann Barron APRN - Last Filed: 07/18/25 16:06> Time Seen by Provider: 07/18/25 16:05 <Breann Barron APRN - Last Filed: 07/18/25 16:06> Focused HPI: Patient is an 89-year-old female who presents to the ER with complaints weakness, nausea, and decreased p.o. intake. She reports her symptoms started on Thursday, 4 days ago. Patient reports she has had a small amount of emesis, but is concerned about dehydration since she has had very little p.o. intake. She denies any recent fevers, chest pain, congestion/cough, or headache. Patient endorses a history of high blood pressure, congestive heart failure, and hyperlipidemia. GENERAL: Ill-appearing, well-nourished, and in no acute distress. HEAD: Normocephalic, atraumatic. CHEST: Clear to auscultation. ?No respiratory distress. HEART: Regular rate and rhythm.? NEURO: ?Alert and oriented x3. Patient screened in triage and initial orders placed.? ?Additional care and disposition to be based upon?diagnostic testing and treatment. <Breann Barron APRN - Last Filed: 07/18/25 16:06> History of Present Illness HPI Narrative: Agree with HPI. Patient has had similar symptoms recently UTIs. She reports no dysuria at this time. <Laz Farrell MD - Last Filed: 07/18/25 22:14> Related Data Home medications: Home Medications ?Medication ?Instructions ?Recorded ?Confirmed ?Last Taken ?Type aspirin 81 mg capsule 81 mg PO DAILY 03/05/2306/1907/03/25 History <Breann Barron APRN - Last Filed: 07/18/25 16:06> Allergies/Adverse reactions: Allergies Allergy/AdvReac Type Severity Reaction Status Date / Time No Known Allergies Allergy Unknown Verified 07/18/25 18:00 <Breann Barron APRN - Last Filed: 07/18/25 16:06> Review of Systems 2 Review of Systems: Gen.: Denies fevers or chills Eyes: Denies eye pain or visual change ENT: Denies congestion Respiratory: Denies shortness of breath or cough CV: Denies chest pain or palpitations GI: As per HPI denies burning, urgency, frequency or hematuria Musculoskeletal: Denies back pain or muscle pain Neuro: Denies numbness, tingling, weakness or focal weakness Skin: Denies rash Except as documented, all other systems reviewed and negative <Laz Farrell MD - Last Filed: 07/18/25 22:14> [facility] Past Medical History Medical History: Medical History UTI (urinary tract infection) Bibasilar crackles History of ventricular tachycardia 2000 Pure hypercholesterolemia, unspecified Gastro-esophageal reflux disease without esophagitis Essential (primary) hypertension Dizziness <Breann Barron APRN - Last Filed: 07/18/25 16:06> Surgical History Surgical History: Surgical History Cataract extraction status of right eye History of detached retina repair History of lumpectomy left breast wire localized lumpectomy with left axillary sentinel lymph node biopsy 12/05/22 <Breann Barron APRN - Last Filed: 07/18/25 16:06> Family History Family History: Family History Father Acute myocardial infarction Heart disease Hypertension Cerebrovascular accident Sibling Diabetes mellitus Heart disease Hypertension Sibling Heart disease Hypertension Daughter Kidney disease Daughter at age 10 from kidney failure. 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 Code status do not resuscitate Smoking status: Never smoker Second hand tobacco smoke exposure: No Alcohol intake: never Substance use: never Substance use type: does not use Do You Feel Safe in your Home?: Yes Lack of Transportation: No Lack of Food: Never True Current Housing: I Have Housing Concerned About Future Housing: No Difficulty Paying Gas/Electric Bills: No Difficulty Paying for Meds: No Currently Unemployed: No Education: High School Diploma/GED Difficulty w/ Childcare or Family Care: No Living arrangements: with family Additional living arrangements comments: LIVES WITH ANTELMO PENNY Occupation/Education: retired Gender identity (if verbalized by the patient): Female Sexual Orientation (if Verbalized by the Patient): Straight or Heterosexual Spiritual care concerns: No Agree to blood products: Yes <Brenan Barron APRN - Last Filed: 07/18/25 16:06> Exam 2 Narrative: APPEARANCE: Mild distress, nontoxic, resting in bed EYES: EOMI HEENT: Normocephalic, atraumatic, mucous membranes mildly dry RESPIRATORY: No respiratory distress Clear to auscultation bilaterally with no rhonchi wheezing or rales. CARDIOVASCULAR: Regular rate and rhythm without murmurs rubs or gallops. ABDOMINAL: Soft, nontender, nondistended, no rebound or guarding MUSCULOSKELETAl: Moves all extremities. No clubbing, cyanosis or edema. NEURO: Awake and alert. Following commands, speech normal, no focal deficits SKIN:: Warm, dry. No rashes lesions or abrasions PSYCHIATRIC: Normal affect/mood, <Laz Farrell MD - Last Filed: 07/18/25 22:14> Course Vital Signs Vital signs: Vital Signs Temperature 97.7 F 07/18/25 15:57 Pulse Rate 67 07/18/25 15:57 Respiratory Rate 16 07/18/25 15:57 Blood Pressure 135/54 L 07/18/25 15:57 Pulse Oximetry 99 07/18/25 15:57 Oxygen Delivery Room Air 07/18/25 15:57 Temperature 97.8 F 07/18/25 20:43 Pulse Rate 81 07/18/25 20:43 Respiratory Rate 15 07/18/25 20:43 Blood Pressure 141/48 H 07/18/25 20:43 Pulse Oximetry 98 07/18/25 20:43 Oxygen Delivery Room Air 07/18/25 17:55 <Breann Barron APRN - Last Filed: 07/18/25 16:06> Vital Signs Temperature 97.7 F 07/18/25 15:57 Pulse Rate 67 07/18/25 15:57 Respiratory Rate 16 07/18/25 15:57 Blood Pressure 135/54 L 07/18/25 15:57 Pulse Oximetry 99 07/18/25 15:57 Oxygen Delivery Room Air 07/18/25 15:57 Temperature 97.8 F 07/18/25 20:43 Pulse Rate 81 07/18/25 20:43 Respiratory Rate 15 07/18/25 20:43 Blood Pressure 141/48 H 07/18/25 20:43 Pulse Oximetry 98 07/18/25 20:43 Oxygen Delivery Room Air 07/18/25 17:55 <Laz Farrell MD - Last Filed: 07/18/25 22:14> MDM - Nausea/Vomiting/Diarrhea MDM Narrative Medical decision making narrative: 89-year-old female presenting for nausea vomiting. On initial evaluation, patient was in mild distress, afebrile, hemodynamically stable. Heart and lungs were clear. Abdomen soft and nontender. Mucous membranes were mildly dry. CBC revealed a mild leukocytosis at 10.9. CMP without significant abnormalities, noted mild hyponatremia at 135. UA showed trace ketones which could be consistent with a mild dehydration. Covid/flu/RSV negative. CT head showed no acute process. Chest x-ray showed no acute process. Patient was given 1 L NS bolus and Zofran. On re-evaluation, she was feeling significantly better. Patient was offered an additional fluid bolus but was requesting to go home at this time. 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 Patient and family were advised follow-up with the patient's PCP the next few days for re-evaluation. Patient and family were agreeable this plan. Given strict return precautions. <Laz Farrell MD - Last Filed: 07/18/25 22:14> Differential Diagnosis Differential diagnosis: Likely traveler's diarrhea, food poisoning, gastroenteritis, drug-induced nausea and vomiting and dehydration <Laz Farrell MD - Last Filed: 07/18/25 22:14> Medical Records Attestation: I reviewed the patient's medical records. <Laz Farrell MD - Last Filed: 07/18/25 22:14> Lab Data Attestation: I reviewed the patient's lab results. <Laz Farrell MD - Last Filed: 07/18/25 22:14> Result diagrams: 07/18/25 16:06 07/18/25 16:06 <Breann Macario Barron, SNUFF PACKING MACHINE OPERATOR - Last Filed: 07/18/25 16:06> Labs: Lab Results 07/18/25 07/18/25 Range/Units 16:06 18:27 WBC 10.9 H (4.5-10.0) K/mm3 RBC 4.39 (4.2-5.4) M/mm3 Hgb 12.5 (12.0-15.0) g/dL Hct 38.0 (37.0-47.0) % MCV 86.6 (80-100) fl MCH 28.5 (26-34) pg MCHC 32.9 (32-36) g/dl RDW 13.9 (11.5-14.5) % Plt Count 418 H (150-375) k/mm3 MPV 10.1 (7.4-10.4) fl Immature Gran % (Auto) 0.5 (0-0.5) % Neut % (Auto) 67.4 (45.5-73.1) % Lymph % (Auto) 16.1 L (18.3-44.2) % Gilpin % (Auto) 10.4 H (2.6-8.5) % Eos % (Auto) 4.9 H (0-4.4) % Baso % (Auto) 0.7 (0.2-1.2) % Lymph # (Auto) 1.75 (0.9-3.2) K/mm3 Gilpin # (Auto) 1.1 H (0.1-0.6) K/mm3 Eos # (Auto) 0.5 H (0-0.3) K/mm3 Baso # (Auto) 0.1 (0.0-0.1) K/mm3 Abs Immat Gran (auto) 0.05 H (0.00-0.031) K/mm3 Absolute Neuts (auto) 7.3 H (1.3-6.7) K/mm3 Absolute Nucleated RBC 0.000 (0.0-0.012) K/mm3 Nucleated RBC % 0.0 (0.0-0.2) % Sodium 135 L (137-145) mmol/L Potassium 3.7 (3.4-5.0) mmol/L Chloride 102 (98-107) mmol/L Carbon Dioxide 25 (22-30) mmol/L Anion Gap 8 (4-12) mmol/L BUN 18 H (7-17) mg/dL Creatinine 0.85 (0.7-1.0) mg/dL Estim Creat Clear Calc 38 ml/min Estimated GFR > 60 (59 - ) Glucose 115 H (65-110) mg/dL Calcium 9.1 (8.4-10.2) mg/dL Magnesium 2.4 H (1.6-2.3) mg/dL Total Bilirubin 0.8 (0.2-1.3) mg/dL AST 27 (14-36) U/L ALT 17 (6-35) U/L Alkaline Phosphatase 69 (38-126) U/L Total Protein 7.5 (6.3-8.2) g/dL Albumin 4.0 (3.5-5.1) g/dL Urine Color Yellow (Yellow) Urine Appearance Clear (Clear) Urine pH 5.0 (5.0-9.0) Ur Specific Curtice 1.014 (1.001-1.035) Urine Protein Trace (Negative) mg/dL Urine Glucose (UA) Negative (Negative) mg/dL Urine Ketones Trace H (Negative) mg/dL Ur Blood (Man) Negative (Negative) Urine Nitrate Negative (Negative) Urine Bilirubin Negative (Negative) Urine Urobilinogen 0.2 (<2.0) mg/dL Leukocyte Esterase Rfl Trace H (Negative) PAPA/UL Urine RBC 0-2 (0-2) /hpf Urine WBC 0-5 (0-3) /hpf Ur Squamous Epith Cells None seen (Few) /hpf Urine Bacteria None seen /hpf Urine Casts 3-5 Influenza A (RT-PCR) Negative (Negative) Influenza B (RT-PCR) Negative (Negative) RSV (RT-PCR) Negative (Negative) SARS-CoV-2 RNA (RT-PCR) Negative (Negative) <Breann Barron, SNUFF PACKING MACHINE OPERATOR - Last Filed: 07/18/25 16:06> Lab Results 07/18/25 07/18/25 Range/Units 16:06 18:27 WBC 10.9 H (4.5-10.0) K/mm3 RBC 4.39 (4.2-5.4) M/mm3 Hgb 12.5 (12.0-15.0) g/dL Hct 38.0 (37.0-47.0) % MCV 86.6 (80-100) fl MCH 28.5 (26-34) pg MCHC 32.9 (32-36) g/dl RDW 13.9 (11.5-14.5) % Plt Count 418 H (150-375) k/mm3 MPV 10.1 (7.4-10.4) fl Immature Gran % (Auto) 0.5 (0-0.5) % Neut % (Auto) 67.4 (45.5-73.1) % Lymph % (Auto) 16.1 L (18.3-44.2) % Gilpin % (Auto) 10.4 H (2.6-8.5) % Eos % (Auto) 4.9 H (0-4.4) % Baso % (Auto) 0.7 (0.2-1.2) % Lymph # (Auto) 1.75 (0.9-3.2) K/mm3 Gilpin # (Auto) 1.1 H (0.1-0.6) K/mm3 Eos # (Auto) 0.5 H (0-0.3) K/mm3 Baso # (Auto) 0.1 (0.0-0.1) K/mm3 Abs Immat Gran (auto) 0.05 H (0.00-0.031) K/mm3 Absolute Neuts (auto) 7.3 H (1.3-6.7) K/mm3 Absolute Nucleated RBC 0.000 (0.0-0.012) K/mm3 Nucleated RBC % 0.0 (0.0-0.2) % Sodium 135 L (137-145) mmol/L Potassium 3.7 (3.4-5.0) mmol/L Chloride 102 (98-107) mmol/L Carbon Dioxide 25 (22-30) mmol/L Anion Gap 8 (4-12) mmol/L BUN 18 H (7-17) mg/dL Creatinine 0.85 (0.7-1.0) mg/dL Estim Creat Clear Calc 38 ml/min Estimated GFR > 60 (59 - ) Glucose 115 H (65-110) mg/dL Calcium 9.1 (8.4-10.2) mg/dL Magnesium 2.4 H (1.6-2.3) mg/dL Total Bilirubin 0.8 (0.2-1.3) mg/dL AST 27 (14-36) U/L ALT 17 (6-35) U/L Alkaline Phosphatase 69 (38-126) U/L Total Protein 7.5 (6.3-8.2) g/dL Albumin 4.0 (3.5-5.1) g/dL Urine Color Yellow (Yellow) Urine Appearance Clear (Clear) Urine pH 5.0 (5.0-9.0) Ur Specific Curtice 1.014 (1.001-1.035) Urine Protein Trace (Negative) mg/dL Urine Glucose (UA) Negative (Negative) mg/dL Urine Ketones Trace H (Negative) mg/dL Ur Blood (Man) Negative (Negative) Urine Nitrate Negative (Negative) Urine Bilirubin Negative (Negative) Urine Urobilinogen 0.2 (<2.0) mg/dL Leukocyte Esterase Rfl Trace H (Negative) PAPA/UL Urine RBC 0-2 (0-2) /hpf Urine WBC 0-5 (0-3) /hpf Ur Squamous Epith Cells None seen (Few) /hpf Urine Bacteria None seen /hpf Urine Casts 3-5 Influenza A (RT-PCR) Negative (Negative) Influenza B (RT-PCR) Negative (Negative) RSV (RT-PCR) Negative (Negative) SARS-CoV-2 RNA (RT-PCR) Negative (Negative) <Laz Farrell MD - Last Filed: 07/18/25 22:14> Imaging Data Attestation: I personally reviewed and interpreted this imaging study as follows: < Laz Farrell MD - Last Filed: 07/18/25 22:14> Radiologist's impression: Impressions Chest X-Ray 07/18/25 16:56 Impression: No acute cardiopulmonary abnormality. Head CT 07/18/25 17:01 Impression: 1.No acute intracranial abnormality. <Laz Farrell MD - Last Filed: 07/18/25 22:14> ECG Data EKG #1: Attestation: I personally reviewed and interpreted this ECG as follows: <Laz Farrell MD - Last Filed: 07/18/25 22:14> ECG completion date: 07/18/25 <Laz Farrell MD - Last Filed: 07/18/25 22:14> ECG completion time: 16:09 <Laz Farrell MD - Last Filed: 07/18/25 22:14> Prior ECG tracings: available for review <Laz Farrlel MD - Last Filed: 07/18/25 22:14> Interpretation: Normal sinus rhythm rate of 64, left bundle-branch block, does not meet Sgarbossa criteria for ST-elevation. Comparison 06/29/2025: No significant change <Laz Farrell MD - Last Filed: 07/18/25 22:14> Discharge Plan Discharge Clinical Impression: Acute nausea with nonbilious vomiting <Breann Barron APRN - Last Filed: 07/18/25 16:06> Patient Disposition: Home <Breann Barron APRN - Last Filed: 07/18/25 16:06> Condition: Stable <Breann Barron APRN - Last Filed: 07/18/25 16:06> Instructions: Antibiotic Form, Gastroenteritis (ED), Acute Nausea and Vomiting (DC) <Breann Barron APRN - Last Filed: 07/18/25 16:06> Additional Instructions: Take Zofran as prescribed. Follow-up with your PCP in the next few days for re-evaluation. Return the ED for any new or worsening symptoms. <Breann Barron APRN - Last Filed: 07/18/25 16:06> Patient Language: Malay <Breann Barron APRN - Last Filed: 07/18/25 16:06> Prescriptions: No Action aspirin 81 mg Capsule 81 mg PO DAILY psyllium husk [Metamucil] 0.4 gram capsule 0.4 g PO DAILY PRN (Reason: constipation) Qty: 30 0RF bisacodyl 10 mg suppository 10 mg RECTAL DAILY PRN (Reason: constipation) Qty: 12 0RF ondansetron HCl 4 mg tablet 4 mg PO Q6H Qty: 20 0RF nitrofurantoin monohyd/m-cryst [Macrobid] 100 mg Capsule 100 mg PO Q12HR Qty: 8 0RF anastrozole 1 mg tablet 1 mg PO DAILY Qty: 30 0RF trazodone 50 mg tablet 50 mg PO QHS PRN (Reason: Insomnia) Qty: 30 0RF amlodipine 5 mg tablet 5 mg PO DAILY Qty: 30 0RF potassium chloride 20 mEq tablet,ER particles/crystals 20 meq PO DAILY Qty: 20 0RF omeprazole 20 mg capsule,delayed release(DR/EC) 20 mg PO DAILY Qty: 30 0RF olmesartan 40 mg tablet 40 mg PO DAILY Qty: 30 0RF hydrocodone-acetaminophen 5-325 mg Tablet 1 tablet PO Q8H PRN (Reason: Pain) Qty: 10 0RF <Breann Barron APRN - Last Filed: 07/18/25 16:06> Follow-up/Referrals: Sangita Torres APRN [Primary Care Provider, Family Practice] <Breann Barron APRN - Last Filed: 07/18/25 16:06>
[2025-07-18 16:14] LABS: Hematocrit 38.0 % (37.0-47.0); Hemoglobin 12.5 g/dL (12.0-15.0); Immature Granulocyte Percent A 0.5 % (0-0.5); Lymphocytes Absolute Auto 1.75 K/mm3 (0.9-3.2); Mean Corpuscular HGB Conc 32.9 g/dl (32-36); Mean Corpuscular Hemoglobin 28.5 pg (26-34); Mean Corpuscular Volume 86.6 fl (80-100); Nucleated Red Blood Cells Absolute Auto 0.000 K/mm3 (0.0-0.012); Nucleated Red Blood Cells Perc 0.0 % (0.0-0.2); Platelet Count Result 418 k/mm3 (150-375); Red Blood Count 4.39 M/mm3 (4.2-5.4); White Blood Count 10.9 K/mm3 (4.5-10.0)
[2025-07-18 16:23] LABS: Alanine Aminotransferase 17 U/L (6-35); Albumin Level 4.0 g/dL (3.5-5.1); Alkaline Phosphatase 69 U/L (38-126); Anion Gap 8 mmol/L (4-12); Aspartate Amino Transferase 27 U/L (14-36); Bilirubin,Total 0.8 mg/dL (0.2-1.3); Blood Urea Nitrogen 18 mg/dL (7-17); Calcium 9.1 mg/dL (8.4-10.2); Carbon Dioxide 25 mmol/L (22-30); Chloride 102 mmol/L (98-107); Estimated CRCL calculation 38 ml/min; Estimated Glomerular Filt Rate > 60; Glucose 115 mg/dL (65-110); Magnesium 2.4 mg/dL (1.6-2.3); Potassium 3.7 mmol/L (3.4-5.0); Sodium 135 mmol/L (137-145); Total Protein 7.5 g/dL (6.3-8.2)
[2025-07-18 16:49] LABS: Influenza A QL RT-PCR Negative (Negative); Influenza B QL RT-PCR Negative (Negative); RSV RNA, RT-PCR Negative (Negative); SARS-CoV-2 RNA PCR Negative (Negative)
[2025-07-18 17:55] VITALS: BP 132/51; PULSE 70; RESP 17; TEMP 36.4; O2SAT 100
[2025-07-18 17:59] VITALS: BP 132/51; PULSE 70; RESP 14; TEMP 36.4; O2SAT 100
--- OUTSIDE RECORDS SUMMARY | 2025-07-18 18:07 | XMS_ITS | Encounter Summary ---
Author Organization [facility] [employer] Care Team Providers Care Cafeteria Manager Name Role Phone Sangita Torres APRN Primary Care Provider [phone] Encounter Details Date Type Department Care Team [...] Info) Description 07/19/2025 8:30 AM CDT Appointment [address] [address] Pratima Montes De Oca, RN [place] 07/20/2025 9:30 AM CDT Appointment [address] [address] Pratima Douglas, SINGH 07/20/2025 1:00 PM CDT Appointment [address] [address] Erica Noel, PT [place] documented as of this encounter Visit Diagnoses Not on filedocumented in this encounter Care Teams Cafeteria Manager Relationship Specialty Start Date End Date Sangita Torres APRN [address] [place] [id number] PCP - General Advanced Practice Nurse 07/17/25 documented as of this encounter
--- OUTSIDE RECORDS SUMMARY | 2025-07-18 18:07 | XMS_ITS | Clinical Summary ---
Author Organization [facility] Address [address] [facility], [address] [address] Phone Care Team Providers Care Recordist Chief Name Role Phone Sangita Torres APRN Primary Care Provider [phone] Allergies No known active allergies Medications mesalamine [...] Description 07/19/2025 8:30 AM CDT Appointment [facility] [address] [place] [address] Pratima Montes De Oca RN [place] 07/20/2025 9:30 AM CDT Appointment [facility] [address] [place] [address] Pratima Douglas OT 07/20/2025 1:00 PM CDT Appointment [facility] [address] [place] [address] Erica Noel, PT [place] Health Maintenance Due [...] age to complete this topic Insurance MEDICARE [employer] Care Teams Recordist Chief Relationship Specialty Start Date End Date Sangita Torres APRN [address] [place] [address] PCP - General Advanced Practice Nurse 07/17/25
--- OUTSIDE RECORDS SUMMARY | 2025-07-18 18:07 | XMS_ITS | Clinical Summary ---
Author Organization [facility] [address] Address [address] [place] [address] Care Team Providers Care Nutrition Technician Name Role Phone Sangita Torres NP Primary Care Provider [phone] Allergies No known active allergies Medications aspirin [...] mouth twice daily 180 tablet 5 Active omeprazole (PriLOSEC) 20 mg capsuleIndication s:Chest heaviness,Gastroe sophageal reflux disease, unspecified whether esophagitis present Take 1 capsule by mouth once daily 90 capsule 5 Active simvastatin (ZOCOR) 20 mg tabletIndications :Dyslipidemia Take 1 tablet by mouth nightly 90 tablet 5 Active amLODIPine (NORVASC) 5 mg tabletIndications :Essential hypertension Take 1 tablet by mouth once daily 90 tablet 5 Active olmesartan (BENICAR) 40 mg tabletIndications :Essential hypertension Take 1 tablet by mouth once daily 90 tablet 5 Active Active Problems Problem Noted Date Diagnosed Date Other chest pain 02/21/2019 Other fatigue 11/27/2017 Myalgia 11/27/2017 Dizziness 11/27/2017 Essential hypertension 08/07/2016 Overview (01/23/2017): Essential hypertension Dyslipidemia 08/07/2016 Overview (01/23/2017): Dyslipidemia Gastroesophageal reflux disease 08/07/2016 Overview (01/23/2017): Gastroesophageal reflux disease, esophagitis presence not specified Ventricular tachycardia 08/07/2016 Overview (01/23/2017): Ventricular tachycardia Encounters Date Type Department Care Team Description 07/05/[address] [facility] Medical [facility] Cardiology [address] [place] [phone] Nalini Hurd NP 07/03/2025 2:30 PM CDT Ancillary Procedure [facility] Cardiology [facility] [address] [place] [phone] Syncope and collapse 07/03/2025 Orders Only [facility] Cardiology [address] [place] [phone] Manny Clark MD 06/29/2025 3:13 PM CDT - 06/29/2025 11:59 PM CDT Hospital Encounter [facility] Emergency, Room R Discharge Disposition: Discharge to home or self care from Last 3 Months Surgical History Surgery Date Site/Laterality Comments OTHER [...] on file Legal Sex 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 Gender Identity Not on file Sexual Orientation [...] of 2) 1954 Well Visit 65+ 2000 Covid-19 Vaccine (3 - Pfizer risk series) 02/05/2021 01/08/2021, 12/18/2020 Influenza Vaccine (#1) 2025 Procedures Procedure Name Priority Date/Time Associated Diagnosis Comments CARDIOLOGY DOCUMENT SCAN Routine 07/02/2025 3:43 PM CDT CARDIOLOGY DOCUMENT SCAN Routine 07/01/2025 3:40 PM CDT CARDIOLOGY DOCUMENT SCAN Routine 025 12:36 PM CDT from Last 3 Months Results * Cardiology Document Scan (07/02/2025 3:43 PM CDT) Anatomical Region Laterality Modality Other Manny Clark MD [facility] CARDIAC SERVICES [facility] ISIA[facility] Final Result * Cardiology Document Scan (07/01/2025 3:40 PM CDT) Anatomical Region Laterality Modality Other Manny Clark MD CV CARDIAC SERVICES PROCE DURES Final Result * Cardiology Document Scan (06/30/2025 12:36 PM CDT) Anatomical Region Laterality Modality Other Nalini Hurd NP CV CARDIAC SERVICES PROCEDUR ES Final Result from Last 3 Months Insurance MEDICARE MEDICARE [facility] MEDICARE SUPPLEMENT Care Teams Nutrition Technician Relationship Specialty Start Date End Date Sangita Torres NP [facility] [address] PCP - General Nurse Practitioner 08/15/24
--- OUTSIDE RECORDS SUMMARY | 2025-07-18 18:07 | XMS_ITS | Clinical Summary ---
Author Organization [facility] Address [address] [place] [address] Care Team Providers Care Director Of Restaurant Name Role Phone Luis Edgar MD Primary Care Provider [phone]- [phone] Allergies No known active allergies Medications metoprolol [...] A AND B BCBS SUPP Care Teams Director Of Restaurant Relationship Specialty Start Date End Date Luis Edgar MD PCP - General Family Practice 02/16/23
[2025-07-18] MEDS: SODIUM CHLORIDE 0.9% IV 1,000 ML 999 ML IV CONT (18:13)
[2025-07-18] MEDS: ONDANSETRON INJ 4 MG/2 ML VIAL IV PUSH (18:14)
[2025-07-18 19:11] LABS: Add Urine Microscopic? YES; Appearance Urine Clear (Clear); Glucose Urine UA Negative (Negative); Leukocyte Esterase Ur Trace LEU/UL (Negative); Nitrate Urine Negative (Negative); Specific Grav Ur 1.014 (1.001-1.035)
[2025-07-18] MEDS: ONDANSETRON HCL ODT 4 MG TABLET PO (20:30)
[2025-07-18 20:42] VITALS: BP 141/48; PULSE 81; RESP 16; O2SAT 98
[2025-07-18 20:43] VITALS: BP 141/48; PULSE 81; RESP 15; TEMP 36.6; O2SAT 98
== END 2025-07-18 20:44 | disposition home or self-care (01) ==
PROVIDERS: Registered Nurse; Emergency Provider Student in an Organized Health Care Education/Training Program; PCP Nurse Practitioner Adult Health
DX: R11.2 Nausea with vomiting, unspecified (principal); I10 Essential (primary) hypertension; Z20.822 Contact with and (suspected) exposure to COVID-19
CPT/HCPCS: 36415; 70450; 71046; 80053; 81001; 83735; 85025; 87637; 93005; 96361; 96374; 99284; A9270; J2405; J7030

== ENCOUNTER 2025-07-21 19:34 | Emergency (ER) | payer MEDICARE, SELFPAY ==
[2025-07-21] VITALS (11 sets, daily range): BP systolic 135–158; BP diastolic 55–64; PULSE 57–74; RESP 13–21; TEMP 36.7; O2SAT 93–100
--- NOTE | ~2025-07-21 | CT_ITS ---
EXAMINATION: CT abdomen pelvis w con DATE: 07/21/2025 22:00 INDICATION: Nausea and vomiting. TECHNIQUE: Computed tomography (CT) of the abdomen and pelvis was performed with 100 mL Omnipaque 350 intravenous contrast. Automated exposure control and iterative reconstruction technique were employed. The dose-length product was 306.61 mGy-cm. COMPARISON: CT abdomen 04/05/2007, chest CT 06/29/2025 FINDINGS: The visualized portions of lung bases demonstrate mild atelectasis. Calcified right lung nodules and calcified right hilar lymph nodes are consistent with old granulomatous disease. No pleural effusion. The heart size is normal. There is a trace pericardial effusion. The liver, gallbladder, s pleen, pancreas, and adrenal glands are normal. There is a 4 mm stone in right kidney. There are peripelvic cysts in left kidney measuring up to 2.2 cm. There are no dilated loops of bowel. The appendix is normal. There are no pathologically enlarged lymph nodes. There is no free intraperitoneal fluid. The periuterine veins and ovarian veins are enlarged, consistent with pelvic venous insufficiency. There is severe thoracic and lumbar spondylosis. IMPRESSION: 1. Pelvic venous insufficiency. Reviewed, dictated and finalized at location E.
[2025-07-21 21:15] LABS: Hematocrit 37.6 % (37.0-47.0); Hemoglobin 12.6 g/dL (12.0-15.0); Immature Granulocyte Percent A 0.4 % (0-0.5); Lymphocytes Absolute Auto 2.29 K/mm3 (0.9-3.2); Mean Corpuscular HGB Conc 33.5 g/dl (32-36); Mean Corpuscular Hemoglobin 28.6 pg (26-34); Mean Corpuscular Volume 85.5 fl (80-100); Nucleated Red Blood Cells Absolute Auto 0.000 K/mm3 (0.0-0.012); Nucleated Red Blood Cells Perc 0.0 % (0.0-0.2); Platelet Count Result 404 k/mm3 (150-375); Red Blood Count 4.40 M/mm3 (4.2-5.4); White Blood Count 14.6 K/mm3 (4.5-10.0)
--- NOTE | 2025-07-21 21:27 | ED.NAVMDI ---
HPI - Nausea/Vomiting/Diarrhea General Chief complaint: Nausea/Vomiting/Diarrhea Stated complaint: Nauseous Time Seen by Provider: 07/21/25 20:57 Source: patient and family (Daughter, grandson, son) History of Present Illness HPI Narrative: Patient presents with report of nausea approximately 2 weeks duration no vomiting over the last 24 hours but occasional dry heaving. Patient was seen for similar recently. At that time she received Zofran IV fluids. She has Zofran 4 mg at home, q6HR. She has had urinary tract infections x2, antibiotic regimen has included Macrobid. During recent thorough investigation the house it was determined that patient had some pills with 90 day supply confirming that she had not been compliant with all of her medications including antihypertensives. Patient has since resumed taking all of her medications and family have noted that at home she will experience labile blood pressures. Patient lives with her daughter. Her losartan was recently decreased in half. Patient has a primary care provider, local nurse practitioner. Patient has some swelling in extremities. Recent fibula fracture after syncope 4-5 weeks ago for which she saw orthopedic doctor Pamela and was at [facility]. Patient has a history of surviving cardiac arrest approximately 24 years ago. Patient has been drinking fluids throughout today including half a diet Coke, some water. Has been drinking fluids this morning and into the afternoon. Patient is unsure about her last bowel movement. It is believe that it might of been approximately 1 week ago. When patient had her fibula fracture she was on scheduled opiates for 72-96 hours which were thenswitched to p.r.n. narcotic medications for which is estimated that she received approximately 20 doses in total but has not been on opiate therapy for approximately 1 week. Patient reports no change in appetite, I can eat but family reports decreased appetite. No previous abdominal surgeries. She is not on anticoagulation. Related Data Home Medications ?Medication ?Instructions ?Recorded ?Confirmed ?Last Taken ?Type aspirin 81 mg capsule 81 mg PO DAILY 03/05/23 07/03/25 07/03/25 History Allergies Allergy/AdvReac Type Severity Reaction Status Date / Time No Known Allergies Allergy Unknown Verified 07/21/25 19:43 [facility] Past Medical History Medical History (Updated 07/22/25 @ 18:31 by Bindu Marinelli MD) UTI (urinary tract infection) Bibasilar crackles History of ventricular tachycardia 2000, cardiac arrest with ROSC Pure hypercholesterolemia, unspecified Gastro-esophageal reflux disease without esophagitis Essential (primary) hypertension Dizziness Surgical History Surgical History Cataract extraction status of right eye History of detached retina repair History of lumpectomy left breast wire localized lumpectomy with left axillary sentinel lymph node biopsy 12/05/22 Family History Family History Father Acute myocardial infarction Heart disease Hypertension Cerebrovascular accident Sibling Diabetes mellitus Heart disease Hypertension Sibling Heart disease Hypertension Daughter Kidney disease Daughter at age 10 from kidney failure. 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 Code status do not resuscitate Smoking status: Never smoker Second hand tobacco smoke exposure: No Alcohol intake: never Substance use: never Substance use type: does not use Do You Feel Safe in your Home?: Yes Lack of Transportation: No Lack of Food: Never True Current Housing: I Have Housing Concerned About Future Housing: No Difficulty Paying Gas/Electric Bills: No Difficulty Paying for Meds: No Currently Unemployed: No Education: High School Diploma/GED Difficulty w/ Childcare or Family Care: No Living arrangements: with family Additional living arrangements comments: LIVES WITH DAUGHTER ZOHAIB; son is a local PCP Occupation/Education: retired Gender identity (if verbalized by the patient): Female Sexual Orientation (if Verbalized by the Patient): Straight or Heterosexual Spiritual care concerns: No Agree to blood products: Yes Exam Narrative: GENERAL: Well-appearing, well-nourished, and in no acute distress. HEAD: Normocephalic, atraumatic. EYES: Non injected, non icteric ENT: Nares clear, no rhinorrhea or epistaxis. Gross auditory acuity intact. NECK: Supple. No meningismus. CHEST: Speaking in full sentences. No respiratory distress. HEART: Regular rate and rhythm. . ABDOMEN: Soft, nondistended. No rigidity or guarding. Not peritoneal. No tenderness top palpation throughout. EXTREMITIES: Normal range of motion. Trace to 1+ lower extremity edema. SKIN: Warm, dry, no rash. NEURO: No focal deficits. Alert and oriented. Answering questions. Following commands. Normal speech without aphasia or dysarthria. PSYCH: Normal mood and affect. Course Vital Signs Vital signs: Vital Signs Temperature 98.0 F 07/21/25 19:41 Pulse Rate 72 07/21/25 19:41 Respiratory Rate 18 07/21/25 19:41 Blood Pressure 136/55 L 07/21/25 19:41 Pulse Oximetry 99 07/21/25 19:41 Oxygen Delivery Room Air 07/21/25 19:41 Temperature 98.0 F 07/21/25 19:41 Pulse Rate 76 07/22/25 00:00 Respiratory Rate 13 07/22/25 00:00 Blood Pressure 142/64 H 07/21/25 23:46 Pulse Oximetry 100 07/22/25 00:00 Oxygen Delivery Room Air 07/21/25 19:41 MDM - Nausea/Vomiting/Diarrhea MDM Narrative Medical decision making narrative: Patient presents with nausea. She has been having dry heaves. Symptoms been going on for approximately 2 weeks. Seen recently for similar. It is believed that her last bowel movement was approximately 1 week ago. Patient has been using Zofran at home. She denies any abdominal pain. Patient within the past month or so had a fibula fracture and had been on opiate therapy he around that time but it is believe that she has not had any narcotic medication for approximately 1 week. In the emergency department she is afebrile with acceptable vital signs. Diastolic blood pressure slightly low however mean arterial pressure is >80mmHg. Patient was initially unable to provide a urine sample. Bladder scan was performed did note 700 cc urine. She has a leukocytosis. Urinalysis with trace ketones but otherwise without signs of infection. CMP generally unremarkable. BNP mildly elevated but not to a degree to suggest acute heart failure especially given the reference range of the assay for patient's age. Viral swab negative. Discussed workup with patient as well as her family at bedside. They note that they have plenty of Zofran 4 mg at home and do not believe she would benefit from an alternative antiemetic. We discussed that there is some stool burden on CT abdomen pelvis, not significant enough to be impacted require digital disimpaction but possibly contributing to her nausea and vomiting and reasonable to have a bowel regimen to include spectrum of stool softeners and if needed, laxative. Also discussed the importance of maintaining hydration and nonpharmacological fiber sources including but not limited to prunes, etc.. Discussed alternative therapies for nausea as well such is nancy chews, pressure points in hand, etc.. Advised that she continue to keep a log of her blood pressure now that she is taking her medications again and follow-up with primary care provider regarding concerns for labile blood pressures and any other issues including the possibility of polypharmacy contributing to her symptoms. Otherwise stable for discharge. Patient and family verified understanding and are in agreement with the plan. Differential Diagnosis Differential diagnosis: Likely dehydration and other (Constipation, small-bowel obstruction, gastritis, nausea and vomiting, drug induced nausea and vomiting. Urinary tract infection) Lab Data Attestation: I reviewed the patient's lab results. 07/21/25 21:10 07/21/25 21:10 Labs: Lab Results 07/21/25 07/21/25 07/21/25 Range/Units 21:10 21:17 22:24 WBC 14.6 H (4.5-10.0) K/mm3 RBC 4.40 (4.2-5.4) M/mm3 Hgb 12.6 (12.0-15.0) g/dL Hct 37.6 (37.0-47.0) % MCV 85.5 (80-100) fl MCH 28.6 (26-34) pg MCHC 33.5 (32-36) g/dl RDW 13.7 (11.5-14.5) % Plt Count 404 H (150-375) k/mm3 MPV 10.0 (7.4-10.4) fl Immature Gran % (Auto) 0.4 (0-0.5) % Neut % (Auto) 71.8 (45.5-73.1) % Lymph % (Auto) 15.7 L (18.3-44.2) % [place] % (Auto) 10.6 H (2.6-8.5) % Eos % (Auto) 1.0 (0-4.4) % Baso % (Auto) 0.5 (0.2-1.2) % Lymph # (Auto) 2.29 (0.9-3.2) K/mm3 [place] # (Auto) 1.6 H (0.1-0.6) K/mm3 Eos # (Auto) 0.2 (0-0.3) K/mm3 Baso # (Auto) 0.1 (0.0-0.1) K/mm3 Abs Immat Gran (auto) 0.06 H (0.00-0.031) K/mm3 Absolute Neuts (auto) 10.5 H (1.3-6.7) K/mm3 Absolute Nucleated RBC 0.000 (0.0-0.012) K/mm3 Nucleated RBC % 0.0 (0.0-0.2) % Sodium 135 L (137-145) mmol/L Potassium 3.6 (3.4-5.0) mmol/L Chloride 103 (98-107) mmol/L Carbon Dioxide 22 (22-30) mmol/L Anion Gap 10 (4-12) mmol/L BUN 11 D (7-17) mg/dL Creatinine 0.78 (0.7-1.0) mg/dL Estim Creat Clear Calc Not Reportable Estimated GFR > 60 (59 - ) Glucose 109 (65-110) mg/dL Lactic Acid 1.3 (0.7-2.0) mmol/L Calcium 9.5 (8.4-10.2) mg/dL Magnesium 2.1 (1.6-2.3) mg/dL Total Bilirubin 0.8 (0.2-1.3) mg/dL AST 25 (14-36) U/L ALT 19 (6-35) U/L Alkaline Phosphatase 72 (38-126) U/L NT-Pro-B Natriuret Pep 1310 H (19.9-100) pg/mL Total Protein 7.4 (6.3-8.2) g/dL Albumin 4.0 (3.5-5.1) g/dL Lipase 206 (23-300) U/L Urine Color Yellow (Yellow) Urine Appearance Clear (Clear) Urine pH 5.5 (5.0-9.0) Ur Specific [place] 1.010 (1.001-1.035) Urine Protein Negative (Negative) mg/dL Urine Glucose (UA) Negative (Negative) mg/dL Urine Ketones Trace H (Negative) mg/dL Ur Blood (Man) Negative (Negative) Urine Nitrate Negative (Negative) Urine Bilirubin Negative (Negative) Urine Urobilinogen 0.2 (<2.0) mg/dL Leukocyte Esterase Rfl Negative (Negative) PAPA/UL Influenza A (RT-PCR) Negative (Negative) Influenza B (RT-PCR) Negative (Negative) RSV (RT-PCR) Negative (Negative) SARS-CoV-2 RNA (RT-PCR) Negative (Negative) Imaging Data Attestation: I personally reviewed and interpreted this imaging study as follows: My impression: Mild to moderate stool burden within/throughout the colon on my independent interpretation Radiologist's impression: CT abd/pelvis with contrast: No acute intra-abdominal abnormality. No bowel obstruction or inflammation. Normal appendix. Nonobstructing right renal calculus. No obstructive uropathy. Urinary bladder wall thickening, nonspecific. Correlate with urinalysis. Hepatic steatosis. Scattered linear atelectasis/scarring Discharge Plan Discharge Clinical Impression: Leukocytosis, Nausea & vomiting, Hepatic steatosis Patient Disposition: Home Condition: Stable Instructions: Antibiotic Form, Acute Nausea and Vomiting (ED), Leukocytosis (ED), Non-Alcoholic Fatty Liver Disease (ED) Additional Instructions: Continue taking your medications as prescribed but keep a log of your blood pressure measurements to follow-up with your primary care provider. You can continue to use the ondansetron/Zofran for nausea. Can trial alternative nontraditional approaches like nancy, pressure points on the hands, etc. Reasonsable to try to treat constipation through a bowel regimen that includes stool softeners like fiber/psyllium/metamucil, supplement with Miralax, and, if needed, a laxative such as Magnesium citrate. In general, maintaining hydration and eating high fiber foods may help produce a bowel movement which may also improve nausea/vomiting. Return with any new/worsening symptoms. Patient Language: Citizen Of [place] Prescriptions: New psyllium husk [Metamucil] 0.4 gram capsule 0.4 g PO DAILY PRN (Reason: constipation) Qty: 30 0RF magnesium citrate Solution 150 ml PO DAILY PRN (Reason: constipation) Qty: 296 0RF polyethylene glycol 3350 [Miralax] 17 gram/dose powder 17 g PO DAILY Qty: 119 0RF No Action aspirin 81 mg Capsule 81 mg PO DAILY psyllium husk [Metamucil] 0.4 gram capsule 0.4 g PO DAILY PRN (Reason: constipation) Qty: 30 0RF bisacodyl 10 mg suppository 10 mg RECTAL DAILY PRN (Reason: constipation) Qty: 12 0RF ondansetron HCl 4 mg tablet 4 mg PO Q6H Qty: 20 0RF olmesartan 20 mg tablet 20 mg PO DAILY Qty: 30 1RF nitrofurantoin monohyd/m-cryst [Macrobid] 100 mg Capsule 100 mg PO Q12HR Qty: 8 0RF anastrozole 1 mg tablet 1 mg PO DAILY Qty: 30 0RF trazodone 50 mg tablet 50 mg PO QHS PRN (Reason: Insomnia) Qty: 30 0RF amlodipine 5 mg tablet 5 mg PO DAILY Qty: 30 0RF potassium chloride 20 mEq tablet,ER particles/crystals 20 meq PO DAILY Qty: 20 0RF omeprazole 20 mg capsule,delayed release(DR/EC) 20 mg PO DAILY Qty: 30 0RF hydrocodone-acetaminophen 5-325 mg Tablet 1 tablet PO Q8H PRN (Reason: Pain) Qty: 10 0RF Follow-up/Referrals: Sangita Torres APRN [Primary Care Provider, Family Practice] Time of Disposition: 23:53
[2025-07-21 21:35] LABS: Add Urine Microscopic? NO; Appearance Urine Clear (Clear); Glucose Urine UA Negative (Negative); Leukocyte Esterase Ur Negative LEU/UL (Negative); Nitrate Urine Negative (Negative); Specific Grav Ur 1.010 (1.001-1.035)
[2025-07-21 21:42] LABS: Alanine Aminotransferase 19 U/L (6-35); Albumin Level 4.0 g/dL (3.5-5.1); Alkaline Phosphatase 72 U/L (38-126); Anion Gap 10 mmol/L (4-12); Aspartate Amino Transferase 25 U/L (14-36); Bilirubin,Total 0.8 mg/dL (0.2-1.3); Blood Urea Nitrogen 11 mg/dL (7-17); Calcium 9.5 mg/dL (8.4-10.2); Carbon Dioxide 22 mmol/L (22-30); Chloride 103 mmol/L (98-107); Estimated Glomerular Filt Rate > 60; Glucose 109 mg/dL (65-110); Lipase 206 U/L (23-300); Magnesium 2.1 mg/dL (1.6-2.3); Potassium 3.6 mmol/L (3.4-5.0); Sodium 135 mmol/L (137-145); Total Protein 7.4 g/dL (6.3-8.2)
[2025-07-21 22:07] LABS: NT Pro B Type Natriuretic Pept 1310 pg/mL (19.9-100)
[2025-07-21] MEDS: ONDANSETRON INJ 4 MG/2 ML VIAL IV PUSH (22:19)
[2025-07-21 23:08] LABS: Influenza A QL RT-PCR Negative (Negative); Influenza B QL RT-PCR Negative (Negative); RSV RNA, RT-PCR Negative (Negative); SARS-CoV-2 RNA PCR Negative (Negative)
[2025-07-22] VITALS: PULSE 76; RESP 13; O2SAT 100
== END 2025-07-22 00:11 | disposition home or self-care (01) ==
PROVIDERS: Emergency Provider Student in an Organized Health Care Education/Training Program; PCP Nurse Practitioner Adult Health
DX: R11.2 Nausea with vomiting, unspecified (principal); D72.829 Elevated white blood cell count, unspecified; K76.0 Fatty (change of) liver, not elsewhere classified; I10 Essential (primary) hypertension; E78.00 Pure hypercholesterolemia, unspecified; K21.9 Gastro-esophageal reflux disease without esophagitis; Z66 Do not resuscitate; Z87.440 Personal history of urinary (tract) infections; Z98.41 Cataract extraction status, right eye
CPT/HCPCS: 36415; 74177; 80053; 81003; 83605; 83690; 83735; 83880; 85025; 87040; 87637; 96374; 99284; J2405; Q9967